=== PATIENT | male | born 1965 | race Two or more races ===

== ENCOUNTER 2024-10-05 15:34 | Outpatient (REF) | payer OTHER, SELFPAY ==
--- NOTE | ~2024-10-05 | XR_ITS ---
EXAMINATION: XR CERVICAL SPINE CLINICAL INFORMATION: M47.812 - Spondylosis without myelopathy or radiculopathy, cervical region COMPARISON: None available. TECHNIQUE: 5 views of the cervical spine were obtained. FINDINGS: There is straightening of the cervical lordosis. There is no prevertebral soft tissue swelling. C6-7 demonstrates mild disc space narrowing with endplate osteophytes. There is mild foraminal narrowing on the left. There is mild convex left curvature of the cervical spine. XR/XR cervical spine 5V IMPRESSION: There is straightening of the expected cervical lordosis. This can be idiopathic, but can also be related to degenerative change, muscle spasm, or posterior soft tissue injury. Degenerative disc disease at C6-7 with mild left foraminal narrowing Electronically signed by: Melo Gaffney MD 10/05/2024 04:36 PM EDT
== END 2024-10-05 15:35 | disposition home or self-care (01) ==
LOC: HO.XRAY 15:34
PROVIDERS: PCP Internal Medicine; Visit Provider Anesthesiology
DX: M47.812 Spondylosis without myelopathy or radiculopathy, cervical region (principal); I69.398 Other sequelae of cerebral infarction; G89.4 Chronic pain syndrome; M54.2 Cervicalgia
CPT/HCPCS: 72050; 99202

== ENCOUNTER 2024-10-05 15:34 | Outpatient (AMB) | payer OTHER, SELFPAY ==
[2024-10-05 15:35] VITALS: BP 133/66; PULSE 83; RESP 18; O2SAT 97; BMI 38.1
--- NOTE | 2024-10-05 15:35 | MHC.OFFVIS ---
Vital Signs 10/05/24 15:35 Height 5 ft 6 in Weight 236 lb BMI 38.1 BP 133/66 Blood Pressure Location Lt brachial Position Sitting Respiration 18 Pulse 83 Pulse Source Pulse Oximeter Pulse Oximetry (%) 97 Oxygen Delivery Method Room Air Intake Visit Reasons: Chronic Left Shoulder Pain Electric Meter Tester Required: No Allergies No Known Allergies Allergy (Verified 10/05/24 15:36) HPI Comments Details: Rashawn is very pleasant 59 years old gentleman who presents in my office with complains on pain in the left side of his neck. He reports that this pain started after the stroke in 2020. He reports pain in the lateral and posterior surface of the neck on the left. He denies pain in his shoulder. He reports that because of his pain he has difficulty sleeping at night. He is able to do activities of daily living he is able to take care of himself but he is unable to function normally. He is disabled individual. He tried locate lidocaine patch application but it did not help. He tried application of the called but not hot and it did not help his pain. He is taking gabapentin and muscle relaxants for his pain. He never had images of his cervical spine. He had physical therapy 6-7 months ago he continues home exercise program. After stroke mobility of his left upper extremity improved. He is able to gently squeeze my fingers today on physical exam. He is able to flex his forearm and slightly able to extend it. He is able to shrug his left shoulder. He never had any injections. His past medical history significant for severe hypertension. He has a stroke and he lost kidney function approximately at the same time. He was treated by hemodialysis until 2021 when his son donated him his kidney, he is now under kidney transplant in [facility]. He is also diabetic. He stopped smoking 4 years ago. He does not drink alcohol. He drinks soda and caffeinated beverages and he denies recreational drugs. Review of Systems Const All systems reviewed & are unremarkable except as noted in HPI and below ENT Reports Normal hearing present Neuro Reports Normal hearing present, Denies Abnormal speech present, Denies confusion and Denies Sensory deficit (Neuro) Psych Denies confusion Physical Exam Vital Signs: Last Vital Signs Pulse 83 10/05/24 15:35 Resp 18 10/05/24 15:35 BP 133/66 10/05/24 15:35 Pulse Ox 97 08/21/25 15:35 Oxygen Delivery Method Room Air 10/05/24 15:35 BMI result Body Mass Index 38.1 Const General: no acute distress; No confusion Nutritional Appearance: obese morbidly obese Orientation/consciousness: patient oriented x3 and No confusion Eyes General: appearance normal, both eyes and all related structures Pupils: Equal, round and reactive pupils present EOM: EOMs intact bilaterally Neck Other: Flexing head forward does not affect his pain but flexing it backwards aggravated severely. There is tenderness on palpation in paraspinal region on the left of the cervical spine. Axial compression aggravates patient's pain. He is able to shrug his left shoulder up, he is able to squeeze my hand on the left but very weakly. Almost unable to extend the left forearm but able to flex it gently. The strength is grossly compromised. Neck: No full ROM Chest Chest palpation & inspection: normal inspection of the chest Resp Effort & Inspection: normal respiratory effort, able to speak in complete sentences, normal respiratory pattern, no audible wheezes and no cough Cardio Jugular venous distension: no JVD GI Inspection: Yes normal to inspection Neuro General: patient oriented x3, gait normal and No confusion Cranial nerves: Yes CN's II-XII intact bilaterally, Yes Equal, round and reactive pupils present, Yes Normal hearing present and Yes Ability to bilaterally elevate shoulders present Speech: No Abnormal speech present Gait exam (Neuro): Normal gait present Motor exam (neuro): 5/5 motor strength present throughout Sensory Exam: No Sensory deficit (Neuro) Extrem General: No pedal edema Psych Speech and movement: Normal speech and movement present Affect: normal affect Attitude: cooperative Thought process: Normal thought process present Thought content: Normal thought content present Insight: Good insight present (Psych) Judgement: Good judgement present (Psych) Assessment & Plan Assessment & Plan (1) Spondylosis of cervical spine: Code(s): M47.812 - Spondylosis without myelopathy or radiculopathy, cervical region Category: Medical (2) Chronic pain syndrome: Code(s): G89.4 - Chronic pain syndrome Category: Medical (3) Pain after cerebrovascular accident (CVA): Code(s): I69.398 - Other sequelae of cerebral infarction; R52 - Pain, unspecified Category: Medical Plan My impression today that this patient is suffering from spondylosis of the cervical spine among other things. I will send him for x-ray today for the cervical spine and if it will demonstrate spondylotic changes in 1 week I will schedule appointment with the patient and we will plan medial branch blocks on the left. He has kidney transplant recipient and he is diabetic Orders: Orders XR cervical spine 5V Today M47.812 - Spondylosis without myelopathy or radiculopathy, cervical region Coding Level of Care Code New Pt Level 3 (86823) Diagnoses Spondylosis of cervical spine M47.812 Chronic pain syndrome G89.4 Pain after cerebrovascular accident (CVA) I69.398; R52
--- OUTSIDE RECORDS SUMMARY | 2024-10-05 15:36 | XMS_ITS | Clinical Summary ---
Author Organization [facility] Address [address] [place] [address] Care Team Providers Care Automotive Parts Clerk Name Role Phone Estuardo Faria MD Primary Care Provider Allergies No known active allergies Medications Medication Sig Dispensed Refills Start Date End Date Status ammonium lactate (AMLACTIN) 12 % cream 12 %. 0 09/03/2009 Act doroteo Blood Glucose Monitoring Suppl (Aeluros FREEDOM LITE) w/Device KIT Use daily 0 04/18/2015 Active ergocalciferol (VITAMIN D2) capsule 60158 units TAKE 1 CAPSULE PO EVERY WEEK 1 09/17/2018 Active Lancets (FREESTYLE) lancets Use to test blood sugar twice a day 0 04/18/2015 Active gabapentin (NEURONTIN) 100 MG capsule TK 1 C PO BID 0 09/17/2018 Active gabapentin (NEURONTIN) 100 MG capsule Take 100 mg by mouth. 0 05/10/2018 Active glyBURIDE (DIABETA) 5 MG tablet 0 10/21/2018 Active lisinopril (PRINIVIL,ZESTRIL) tablet 5 mg TAKE 1 TABLET PO DAILY 3 09/17/2018 Active metFORMIN (GLUCOPHAGE) tablet 1000 mg Take 1,000 mg by mouth. 0 05/11/2018 Active Active Problems Problem Noted Date Diagnosed Date Right carpal tunnel syndrome 10/26/2018 Left carpal tunnel syndrome 10/26/2018 Possible epidermal inclusion cyst right hand/right ring finger 10/26/2018 Family History Medical History Relation Name Comments Diabetes Mother Relation Name Status Comments Mother Social History Tobacco Use Types Packs/Day Years Used Date Smoking Tobacco: Never Smokeless Tobacco: Never Alcohol Use Standard Drinks/Week Comments Yes 0 (1 standard drink = 0.6 oz pur e alcohol) Sex and Gender Information Value Date Recorded Sex Assigned at Not on file Gender Identity Not on file Sexual Orientation Not on file Job Start Date Occupation Industry Not on file Not on file Not on file Last Filed Vital Signs Vital Sign Reading Time Taken Comments Blood Pressure - - Pulse - - Temperature - - Respiratory Rate - - Oxygen Saturation - - Inhaled Oxygen Concentration - - Weight 97.5 kg (215 lb) 10/26/2018 10:51 AM EDT Height 167.6 cm (5' 6 ) 10/26/2018 10:51 AM EDT Body Mass Index 34.7 10/26/2018 10:51 AM EDT Plan of Treatment Health Maintenance Due Date Last Done Comments Hepatitis B Vaccines (1 of 3 - 3-dose series) 1965 Hepatitis C Screening 1965 COVID-19 Vaccine (#1) 1965 Depression Screening 1977 BMI Counseling 1983 Preventative Health Evaluation 1983 Colon Cancer Screening (Colonoscopy) 2010 Shingrix-Zoster Vaccine (1 o f 2) 2015 DTap / Tdap / Td (2 - Td or Tdap) 07/03/2017 07/04/2007 Pneumococcal Vaccine (2 of 2 - PCV) 09/17/2019 09/16/2018 Influenza Vaccine (#1) 2024 8, 11/22/2009, 01/18/2008 RSV Ped < 20 months Aged Out No longe r eligible based on patient's age to complete this topic Care Teams Automotive Parts Clerk Relationship Specialty Start Date End Date Estuardo Faria MD PCP - General Internal Medicine 09/19/18
--- OUTSIDE RECORDS SUMMARY | 2024-10-05 15:36 | XMS_ITS ---
Author Name [facility] Organization Unknown Problems Problem Status Onset Date Problem Type Date of Resoluti on Source Complication of transplanted kidney, unspecified complication active EncounterDiagnosisAct CCT Encounters Encounter Type Encounter Reason Primary Diagnosis Location Date Ambulatory Unspecified complication of kidney transplant Unspecified complication of kidney transplant [facility] 11/27/2022 Ambulatory Unspecified complication of kidney transplant [place] [employer] 05/21/2022 Care Team Organization Name Specialty Phone Email Start Date End Da te [place] Bernadine Servin Primary [facility] 12/15/202210/03 [facility] NENA CHACON Primary Care 11/27/2022 [place] Jenna Trevino Primary [facility] 10/22/2022 4 [place] [employer] 05/21/2022 [place] [employer] 04/29/2022 04/29/2022 [place] NENA CHACON Primary Care 04/22/2022 4 [place] NENA CHACON Primary Care 12/23/2021 4 [facility] [employer] NENA CHACON Primary Care
--- OUTSIDE RECORDS SUMMARY | 2024-10-05 15:36 | XMS_ITS | Clinical Summary ---
Author Organization [facility] Address [address] [place] [address] Care Team Providers Care Retail Selling Specialist Name Role Phone Unavailable Primary Care Provider Unavailabl e Source Comments PLEASE NOTE, if this patient is a minor, it may be UNLAWFUL to discuss sensitive information that is contained in these records (such as FAMILY PLANNING, MENTAL HEALTH or SUBSTANCE ABUSE) with the minor patient's parent or other person without the patient's specific authorization.[facility] Allergies No known active allergies Medications No known medications Active Problems Problem Noted Date Diagnosed Date Cerebrovascular accident (CVA) ([facility]) 0 08/11/2023 Diabetes mellitus ([facility]) 12/22/2022 Cerebrovascular accident (CV A) due to occlusion of cerebral artery ([facility]) 09/02/2022 Kidney transplant status ([facility]) 02/18/2022 Hypertension 05/27/2020 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 ([facility]) 04/23/2020 Social History Tobacco Use Types Packs/Day Years Used Date Smoking Tobacco: Never Smokeless Tobacco: Never Tobacco Cessation:Counseling Given: Not Answered Social Connections Answer Date Recorded Connectedness 0 11/01/2023 Financial Resource Strain Answer Date R ecorded Financial Resource Strain 0 2023 Stress Answer Date Recorded Stress 0 08/10/2023 Physical Activity Answer Date Recorded Physical Activity 0 08/10/2023 Food Insecurity Answer Date Recorded Food 0 11/11/2023 Transportation Needs Answer Date Record ed Transportation 0 08/10/2023 Housing Stability Answer Date Recorded Housing 0 08/10/2023 Safety and Environment Answer Date Vish rded Safety 0 08/10/2023 Utilities Answer Date Recorded Utilities 0 08/10/2023 Employment Answer Date Recorded Stress 0 11/01/2023 Sex and Gender Information Value Date Recorded Sex Assigned at Not on file Legal Sex Male 11:14 AM PDT Gender Identity Not on file Sexual Orientation Not on file Last Filed Vital Signs Vital Sign Reading Time Taken Comments Blood Pressure 127/71 08/11/2023 10:10 AM EDT Pulse 82 08/11/2023 10:10 AM EDT Temperature - - Respiratory Rate - - Oxygen Saturation - - Inhaled Oxygen Concentration - - Weight - - Height - - Body Mass Index - - Plan of Treatment Health Maintenance Due Date Last Done Comments Anxiety Screening 1965 Dental Examination 1965 Diabetes Foot Exam 1965 Hepatitis C Screening 1965 Lipid Screening 1965 Tobacco Screening 1965 Retinopathy Screening 1978 HIV Screening 1980 Medicare Annual Wellness Visit 1983 Imm-Hepatitis B (1 of 3 - 19 + 3-dose series) 1984 Imm-Zoster, Recombinant (1 of 2) 1984 CT Colonography 2010 Colonoscopy 2010 Colorectal Cancer Screening 2010 FIT/gFOBT 2010 Fecal DNA 2010 Flexible Sigmoidoscopy 2010 Imm-Pneumococcal 50+ (3 of 3 - PCV) 09/17/2019 09/16/2018, 11/19/2015 Hemoglobin A1c 10/07/2023 07/07/2023, 0503/2023, 05/27/2022, Additional history exists [id number] ( - 2023- season) 2023 10/08/2021, 01/07/2021, 04/26/2020, Additional history exists Alcohol and Drug Screen 02/16/2024 Depression Annual Screen 02/16/2024 Serum Creatinine 05/16/2024 05/17/2023 Urine Albumin Creatinine Rat io Screening 07/06/2024 07/07/2023, 05/17/2023 Imm-Influenza (#1) 2024 10/29/2022, 0 11/10/2017, 11/17/2016, Additional history exists Imm-DTaP/Tdap/Td (5 - Td or Tdap) 09/16/2028 09/16/2018, 08/24/2015, 11/01/2014, Additional history exists Insurance [facility]
--- OUTSIDE RECORDS SUMMARY | 2024-10-05 15:36 | XMS_ITS | Clinical Summary ---
Author Organization [facility] Address [address] [place] [address] Care Team Providers Care Practical Nursing Faculty Name Role Phone Estuardo Faria MD Primary Care Provider Carrie red Social History Tobacco Use Types Packs/Day Years Used Date Smoking Tobacco: Never Assessed Sex and Gender Information Value Date Recorded Sex Assigned at Male 05/14/2022 8:42 AM EDT Legal Sex Male 2:48 PM EDT Gender Identity Male 05/14/2022 8:42 AM EDT Sexual Orientation Heterosexual (straight) 05/14 8:42 AM EDT Plan of Treatment Health Maintenance Due Date Last Done Comments Hepatitis C Virus Screening 1965 HIV Screening 1978 DTaP/Tdap/Td Vaccines (1 - Tdap) 1984 Pneumococcal Vaccines 50+ (1 of 2 - PCV) 1984 Hepatitis B Vaccines (1 of 3 - Risk Dialysis 4-dose series) 1985 Colonoscopy 2010 Zoster (Shingles) Vaccine (1 of 2) 2015 COVID-19 Vaccine (5 - 2023-2 5 season) 2023 10/08/2021, 01/07/2021, 04/26/2020, Additional history exists Influenza Vaccine 09/15/2024 10/29/2022, , 11/17/2016, Additional history exists Insurance MEDICAID OUT OF STATE [facility] MEDICARE PART A & B Care Teams Practical Nursing Faculty Relationship Specialty Start Date End Date Estuardo Faria MD PCP - General 05/04/22
--- OUTSIDE RECORDS SUMMARY | 2024-10-05 15:36 | XMS_ITS | Encounter Summary ---
Author Organization [facility], Address [address] [address] Phone Care Team Providers Care Retail Merchandiser Name Role Phone Bernadine Servin Primary Care Provider [phone] Encounter Details Date Type Department Care Team (Late st Contact Info) Description 11/28/2021 Documentation Only [facility], [address] [phone] Conor Shultz MD [address] [place] [phone] Social History Tobacco Use Types Packs/Day Years Used Date Smoking Tobacco: Former Cigarettes Smokeless Tobacco: Never Alcohol Use Standard Drinks/Week Comments Yes 0 (1 standard drink = 0.6 oz pur e alcohol) Sex and Gender Information Value Date Recorded Sex Assigned at Not on file Legal Sex Male 4:57 PM EST Gender Identity Not on file Sexual Orientation Not on file documented as of this encounter Plan of Treatment Upcoming Encounters Date Type Department Care Team (Late st Contact Info) Description 12/12/2024 11:00 AM EDT Office Visit [facility] [address] [phone] Evaristo Vidales MD [address] [phone] documented as of this encounter Visit Diagnoses Not on filedocumented in this encounter Care Teams Retail Merchandiser Relationship Specialty Start Date End Date Bernadine Servin [address] [place] [address] PCP - General Internal Medicine 02/23/23 documented as of this encounter
== END 2024-10-06 15:38 | disposition home or self-care (01) ==
PROVIDERS: PCP Internal Medicine; Visit Provider Anesthesiology
DX: M47.812 Spondylosis without myelopathy or radiculopathy, cervical region (principal); G89.4 Chronic pain syndrome; I69.398 Other sequelae of cerebral infarction
CPT/HCPCS: 99203

== ENCOUNTER → 2024-10-05 16:09 | Outpatient (BNV) | payer OTHER, SELFPAY | PROVIDERS: PCP Internal Medicine; Visit Provider Radiology Diagnostic Radiology | DX: M50.323 Other cervical disc degeneration at C6-C7 level (principal) | CPT/HCPCS: 72050 ==

== ENCOUNTER 2024-11-02 15:05 | Outpatient (AMB) | payer OTHER, SELFPAY ==
--- NOTE | 2024-11-02 15:15 | A.OFFVIS_ITS ---
Vital Signs 11/02/24 15:16 Weight 236 lb BP 123/61 Blood Pressure Location Lt brachial Position Sitting Respiration 18 Pulse 77 Pulse Source Pulse Oximeter Pulse Oximetry (%) 99 Oxygen Delivery Method Room Air Intake Visit Reasons: X-RAY FOLLOW UP Philosophy Faculty Member Required: No Allergies No Known Allergies Allergy (Verified 11/02/24 15:15) HPI Comments Details: Rashawn is back in my office after we performed x-ray of the cervical spine. There is straightening of cervical lordosis on the x-ray and also degenerative changes around C5-C6. I offered this patient diagnostic C4-C5 C6 medial branch block with intention if the medial branch block we will alleviate his pain in significant extent to treat his pain with sprint PNS. Josephine I will alleviate his pain little bit better while he is waiting for the procedure I will prescribe him small dose of muscle relaxants baclofen 10 mg t.i.d.. Prior: complains on pain in the left side of his neck. He reports that this pain started after the stroke in 2020. He reports pain in the lateral and posterior surface of the neck on the left. He denies pain in his shoulder. He reports that because of his pain he has difficulty sleeping at night. He is able to do activities of daily living he is able to take care of himself but he is unable to function normally. He is disabled individual. He tried locate lidocaine patch application but it did not help. He tried application of the called but not hot and it did not help his pain. He is taking gabapentin and muscle relaxants for his pain. He never had images of his cervical spine. He had physical therapy 6-7 months ago he continues home exercise program. He is able to flex his forearm and slightly able to extend it. He is able to shrug his left shoulder. He never had any injections. His past medical history significant for severe hypertension. He has a stroke and he lost kidney function approximately at the same time. He was treated by hemodialysis until 2021 when his son donated him his kidney, he is now under kidney transplant in [facility]. He is also diabetic. Review of Systems Const All systems reviewed & are unremarkable except as noted in HPI and below ENT Reports Normal hearing present Neuro Reports Normal hearing present, Denies Abnormal speech present, Denies confusion and Denies Sensory deficit (Neuro) Psych Denies confusion Physical Exam Vital Signs: Last Vital Signs Pulse 77 11/02/24 15:16 Resp 18 11/02/24 15:16 BP 123/61 11/02/24 15:16 Pulse Ox 99 11/02/24 15:16 Oxygen Delivery Method Room Air 11/02/24 15:16 Const General: no acute distress; No confusion Nutritional Appearance: obese morbidly obese Orientation/consciousness: patient oriented x3 and No confusion Eyes General: appearance normal, both eyes and all related structures Pupils: Equal, round and reactive pupils present EOM: EOMs intact bilaterally Neck Other: Flexing head forward does not affect his pain but flexing it backwards aggravated severely. There is tenderness on palpation in paraspinal region on the left of the cervical spine. Axial compression aggravates patient's pain. He is able to shrug his left shoulder up, he is able to squeeze my hand on the left but very weakly. Almost unable to extend the left forearm but able to flex it gently. The strength is grossly compromised. Neck: No full ROM Chest Chest palpation & inspection: normal inspection of the chest Resp Effort & Inspection: normal respiratory effort, able to speak in complete sentences, normal respiratory pattern, no audible wheezes and no cough Cardio Jugular venous distension: no JVD GI Inspection: Yes normal to inspection Neuro General: patient oriented x3, gait normal and No confusion Cranial nerves: Yes CN's II-XII intact bilaterally, Yes Equal, round and reactive pupils present, Yes Normal hearing present and Yes Ability to bilaterally elevate shoulders present Speech: No Abnormal speech present Gait exam (Neuro): Normal gait present Motor exam (neuro): 5/5 motor strength present throughout Sensory Exam: No Sensory deficit (Neuro) Extrem General: No pedal edema Psych Speech and movement: Normal speech and movement present Affect: normal affect Attitude: cooperative Thought process: Normal thought process present Thought content: Normal thought content present Insight: Good insight present (Psych) Judgement: Good judgement present (Psych) Assessment & Plan Assessment & Plan (1) Spondylosis of cervical spine: Code(s): M47.812 - Spondylosis without myelopathy or radiculopathy, cervical region Category: Medical (2) Chronic pain syndrome: Code(s): G89.4 - Chronic pain syndrome Category: Medical (3) Pain after cerebrovascular accident (CVA): Code(s): I69.398 - Other sequelae of cerebral infarction; R52 - Pain, unspecified Category: Medical Plan My impression today that this patient is suffering from spondylosis of the cervical spine among other things. X-ray demonstrated degenerative changes at C5-C6 and straightening of spinal lordosis . I will schedule him for left-sided C4-C5- C6 medial branch block diagnostic. If this will result in good pain improvement immediately after the injection I will consider left-sided sprint PNS. I will prescribe him baclofen 10 mg t.i.d. to help his pain meanwhile. He is kidney transplant recipient and he is diabetic Medications: New baclofen 10 mg PO TID 90 tabs 6RF 30 days Coding Level of Care Code Est Pt Level 3 (91914) Diagnoses Spondylosis of cervical spine M47.812 Chronic pain syndrome G89.4 Pain after cerebrovascular accident (CVA) I69.398; R52
[2024-11-02 15:16] VITALS: BP 123/61; PULSE 77; RESP 18; O2SAT 99
--- OUTSIDE RECORDS SUMMARY | 2024-11-02 16:40 | XMS_ITS | Encounter Summary ---
Author Organization [facility] Address 100 [facility] 200 [place] [address] Phone Care Team Providers Care Bread Stacker Name Role Phone Bernadine Servin Primary Care Provider [phone] Encounter Details Date Type Department Care Team (Late st Contact Info) Description 06/07/2020 Orders Only [facility] 100 [facility] 200 [place] [phone] Ha Goldberg MD [address] [place] [phone] Stage 5 chronic kidney disease (HCC); Hypertension; Type 2 diabetes mellitus with diabetic chronic kidney disease (HCC) Social History Tobacco Use Types Packs/Day Years Used Date Smoking Tobacco: Every Day Cigarettes Smokeless Tobacco: Never Alcohol Use Standard [...] Visit [facility] 24[address] [facility] 204 [place] [address] Evaristo Vidales MD 4799 [facility] 204 [place] [address] documented as of this encounter Visit Diagnoses Diagnosis Stage 5 chronic kidney disease (HCC) Hypertension Type 2 diabetes mellitus with diabetic chronic kidney disease (HCC) documented in this encounter Care Teams Bread Stacker Relationship Specialty Start Date End Date Bernadine Servin [address] [place] [address] PCP - General Internal Medicine 02/23/23 documented as of this encounter
--- OUTSIDE RECORDS SUMMARY | 2024-11-02 16:40 | XMS_ITS | Encounter Summary ---
Author Organization [facility] [place] Address 100 [facility] 200 [place] [address] Phone Care Team Providers Care Nursery School Attendant Name Role Phone Bernadine Servin Primary Care Provider Encounter Details Date Type Department Care Team (Late st Contact Info) Description 06/14/2020 Orders Only [facility] 100 [facility] 200 [place] [phone] Ha Goldberg MD [address] [place] [phone] Stage 5 chronic kidney disease (HCC); Hypertension; [...] Visit [facility] 9273 [facility] 204 [place] [address] Evaristo Vidales MD 8206 [facility] 204 [place] [address] documented as of this encounter Visit Diagnoses Diagnosis Stage 5 chronic kidney disease (HCC) Hypertension Type 2 diabetes mellitus with diabetic chronic kidney disease (HCC) documented in this encounter Care Teams Nursery School Attendant Relationship Specialty Start Date End Date Bernadine Servin [address] [place] [address] PCP - General Internal Medicine 02/23/23 documented as of this encounter
--- OUTSIDE RECORDS SUMMARY | 2024-11-02 16:40 | XMS_ITS | Encounter Summary ---
Author Organization [facility] [place] Address 100 [facility] 200 [place] [address] Phone Care Team Providers Care Fruit Harvest Machine Operator Name Role Phone Bernadine Servin Primary Care Provider [phone] Encounter Details Date Type Department Care Team (Late st Contact Info) Description 07/05/2020 Orders Only [facility] 100 [facility] 200 [place] [phone] Ha Goldberg MD [address] [place] [phone] Stage 5 chronic kidney disease (HCC); Hypertension; [...] Visit [facility] [address] [facility] 204 [place] [address] Evaristo Vidales MD [address] [facility] 204 [place] [address] documented as of this encounter Visit Diagnoses Diagnosis Stage 5 chronic kidney disease (HCC) Hypertension Type 2 diabetes mellitus with diabetic chronic kidney disease (HCC) documented in this encounter Care Teams Fruit Harvest Machine Operator Relationship Specialty Start Date End Date Bernadine Servin [address] [place] [address] PCP - General Internal Medicine 02/23/23 documented as of this encounter
--- OUTSIDE RECORDS SUMMARY | 2024-11-02 16:40 | XMS_ITS | Encounter Summary ---
Author Organization [facility] [place] Address 100 [facility] 200 [place] [address] Phone Care Team Providers Care Legal Executive Name Role Phone Bernadine Servin Primary Care Provider Encounter Details Date Type Department Care Team (Late st Contact Info) Description 05/31/2020 Orders Only [facility] 100 [facility] 200 [place] [phone] Ha Goldberg MD [address] [place] [phone] Stage 5 chronic kidney disease (HCC); Hypertension; [...] Visit [facility] 4939 [facility] 204 [place] [address] Evaristo Vidales MD 0920 [facility] 204 [place] [address] documented as of this encounter Visit Diagnoses Diagnosis Stage 5 chronic kidney disease (HCC) Hypertension Type 2 diabetes mellitus with diabetic chronic kidney disease (HCC) documented in this encounter Care Teams Legal Executive Relationship Specialty Start Date End Date Bernadine Servin [address] [place] [address] PCP - General Internal Medicine 02/23/23 documented as of this encounter
--- OUTSIDE RECORDS SUMMARY | 2024-11-02 16:40 | XMS_ITS | Encounter Summary ---
Author Organization [facility] [place] Address 100 [facility] 200 [place] [address] Phone Care Team Providers Care Corporate Paralegal Name Role Phone Bernadine Servin Primary Care Provider [phone] Encounter Details Date Type Department Care Team (Late st Contact Info) Description 08/16/2020 Orders Only [facility] 100 [facility] 200 [place] [phone] Ha Goldberg MD [address] [place] [phone] Stage 5 chronic kidney disease (HCC); Hypertension; [...] Visit [facility] 125[address] [facility] 204 [place] [address] Evaristo Vidales MD 8476 [facility] 204 [place] [address] documented as of this encounter Visit Diagnoses Diagnosis Stage 5 chronic kidney disease (HCC) Hypertension Type 2 diabetes mellitus with diabetic chronic kidney disease (HCC) documented in this encounter Care Teams Corporate Paralegal Relationship Specialty Start Date End Date Bernadine Servin [address] [place] [address] PCP - General Internal Medicine 02/23/23 documented as of this encounter
--- OUTSIDE RECORDS SUMMARY | 2024-11-02 16:40 | XMS_ITS | Encounter Summary ---
Author Organization [facility] [place] Address 100 [facility] 200 [place] [address] Phone Care Team Providers Care Clinical Research Monitor Name Role Phone Bernadine Servin Primary Care Provider Encounter Details Date Type Department Care Team (Late st Contact Info) Description 07/12/2020 Orders Only [facility] 100 [facility] 200 [place] [phone] Ha Goldberg MD [address] [place] [phone] Stage 5 chronic kidney disease (HCC); Hypertension; [...] Visit [facility] 3413 [facility] 204 [place] [address] Evaristo Vidales MD 4480 [facility] 204 [place] [address] documented as of this encounter Visit Diagnoses Diagnosis Stage 5 chronic kidney disease (HCC) Hypertension Type 2 diabetes mellitus with diabetic chronic kidney disease (HCC) documented in this encounter Care Teams Clinical Research Monitor Relationship Specialty Start Date End Date Bernadine Servin [address] [place] [address] PCP - General Internal Medicine 02/23/23 documented as of this encounter
--- OUTSIDE RECORDS SUMMARY | 2024-11-02 16:40 | XMS_ITS | Encounter Summary ---
Author Organization [facility] [place] Address 100 [facility] 200 [place] [address] Phone Care Team Providers Care Soil Scientist Name Role Phone Bernadine Servin Primary Care Provider Encounter Details Date Type Department Care Team (Late st Contact Info) Description 08/23/2020 Orders Only [facility] 100 [facility] 200 [place] [phone] Ha Goldberg MD [address] [place] [phone] Stage 5 chronic kidney disease (HCC); Hypertension; [...] Visit [facility] 9785 [facility] 204 [place] [address] Evaristo Vidales MD 3820 [facility] 204 [place] [address] documented as of this encounter Visit Diagnoses Diagnosis Stage 5 chronic kidney disease (HCC) Hypertension Type 2 diabetes mellitus with diabetic chronic kidney disease (HCC) documented in this encounter Care Teams Soil Scientist Relationship Specialty Start Date End Date Bernadine Servin [address] [place] [address] PCP - General Internal Medicine 02/23/23 documented as of this encounter
--- OUTSIDE RECORDS SUMMARY | 2024-11-02 16:40 | XMS_ITS | Encounter Summary ---
Author Organization [facility], Address [address] [address] Phone Care Team Providers Care Registered Medical Transcriptionist Name Role Phone Bernadine Servin Primary Care Provider [phone] Encounter Details Date Type Department Care Team (Late st Contact Info) Description 11/28/2021 Documentation Only [facility], [address] [facility] [place] [phone] Conor Shultz MD [address] [facility] [place] [phone] Social History Tobacco Use Types Packs/Day Years [...] Visit [facility] [address] [address] Evaristo Vidales MD [address] [address] documented as of this encounter Visit Diagnoses Not on filedocumented in this encounter Care Teams Registered Medical Transcriptionist Relationship Specialty Start Date End Date Bernadine Servin 4 [place] [address] PCP - General Internal Medicine 02/23/23 documented as of this encounter
--- OUTSIDE RECORDS SUMMARY | 2024-11-02 16:40 | XMS_ITS | Encounter Summary ---
Author Organization [facility] [place] Address 100 [facility] 200 [place] [address] Phone Care Team Providers Care Aprn Name Role Phone Bernadine Servin Primary Care Provider [phone] Encounter Details Date Type Department Care Team (Late st Contact Info) Description 10/27/2024 Orders Only [facility] 100 [facility] 200 [place] [address] Zack Ballesteros MD [address] [facility] 204 [place] [address] Kidney transplant status; Other half-way current drug therapy Social History Tobacco Use Types Packs/Day Years [...] Visit [facility] 35[address] [facility] 204 [place] [address] Evaristo Vidales MD [address] [facility] 204 [place] [address] documented as of this encounter Visit Diagnoses Diagnosis Kidney transplant status Other half-way current drug therapy documented in this encounter Care Teams Aprn Relationship Specialty Start Date End Date Zoë Servinmana [address] [place] [address] PCP - General Internal Medicine 02/23/23 documented as of this encounter
--- OUTSIDE RECORDS SUMMARY | 2024-11-02 16:40 | XMS_ITS | Encounter Summary ---
Author Organization [facility] [place] Address 100 [facility] 200 [place] [address] Phone Care Team Providers Care Ramp Attendant Name Role Phone Bernadine Servin Primary Care Provider [phone] Encounter Details Date Type Department Care Team (Late st Contact Info) Description 07/26/2020 Orders Only [facility] 100 [facility] 200 [place] [phone] Ha Goldberg MD [address] [place] [phone] Stage 5 chronic kidney disease (HCC); Hypertension; [...] Visit [facility] [address] [facility] 204 [place] [address] Evaristo Vidales MD 0743 [facility] 204 [place] [address] documented as of this encounter Visit Diagnoses Diagnosis Stage 5 chronic kidney disease (HCC) Hypertension Type 2 diabetes mellitus with diabetic chronic kidney disease (HCC) documented in this encounter Care Teams Ramp Attendant Relationship Specialty Start Date End Date Bernadine Servin [address] [place] [address] PCP - General Internal Medicine 02/23/23 documented as of this encounter
--- OUTSIDE RECORDS SUMMARY | 2024-11-02 16:40 | XMS_ITS | Encounter Summary ---
Author Organization [facility] [place] Address 100 [facility] 200 [place] [address] Phone Care Team Providers Care Affiliate Marketing Specialist Name Role Phone Bernadine Servin Primary Care Provider [phone] Encounter Details Date Type Department Care Team (Late st Contact Info) Description 06/28/2020 Orders Only [facility] 100 [facility] 200 [place] [phone] Ha Goldberg MD [address] [place] [phone] Stage 5 chronic kidney disease (HCC); Hypertension; [...] and [facility] of the [facility] 2[address] [facility] 204 [place] [address] Evaristo Vidales MD 0579 [facility] 204 [place] [address] documented as of this encounter Visit Diagnoses Diagnosis Stage 5 chronic kidney disease (HCC) Hypertension Type 2 diabetes mellitus with diabetic chronic kidney disease (HCC) documented in this encounter Care Teams Affiliate Marketing Specialist Relationship Specialty Start Date End Date Bernadine Servin [address] [place] [address] PCP - General Internal Medicine 02/23/23 documented as of this encounter
--- OUTSIDE RECORDS SUMMARY | 2024-11-02 16:40 | XMS_ITS | Encounter Summary ---
Author Organization [facility] [place] Address [address] [facility] 200 [place] [address] Phone Care Team Providers Care Extruding Machine Operator Name Role Phone Bernadine Servin Primary Care Provider [phone] Encounter Details Date Type Department Care Team (Late st Contact Info) Description 06/21/2020 Orders Only [facility] [address] [facility] 200 [place] [phone] Ha Goldberg MD [address] [place] [phone] Stage 5 chronic kidney disease (HCC); Hypertension; [...] Visit [facility] 5300 [facility] 204 [place] [address] Evaristo Vidales MD 0520 [facility] 204 [place] [address] documented as of this encounter Visit Diagnoses Diagnosis Stage 5 chronic kidney disease (HCC) Hypertension Type 2 diabetes mellitus with diabetic chronic kidney disease (HCC) documented in this encounter Care Teams Extruding Machine Operator Relationship Specialty Start Date End Date Bernadine Servin [address] [place] [address] PCP - General Internal Medicine 02/23/23 documented as of this encounter
--- OUTSIDE RECORDS SUMMARY | 2024-11-02 16:40 | XMS_ITS | Encounter Summary ---
Author Organization [facility] [place] Address 100 [facility] 200 [place] [address] Phone Care Team Providers Care Precinct Police Lieutenant Name Role Phone Bernadine Servin Primary Care Provider Encounter Details Date Type Department Care Team (Late st Contact Info) Description 08/30/2020 Orders Only [facility] 100 [facility] 200 [place] [phone] Ha Goldberg MD [address] [place] [phone] Stage 5 chronic kidney disease (HCC); Hypertension; [...] Visit [facility] 9900 [facility] 204 [place] [address] Evaristo Vidales MD 8787 [facility] 204 [place] [address] documented as of this encounter Visit Diagnoses Diagnosis Stage 5 chronic kidney disease (HCC) Hypertension Type 2 diabetes mellitus with diabetic chronic kidney disease (HCC) documented in this encounter Care Teams Precinct Police Lieutenant Relationship Specialty Start Date End Date Bernadine Servin [address] [place] [address] PCP - General Internal Medicine 02/23/23 documented as of this encounter
--- OUTSIDE RECORDS SUMMARY | 2024-11-02 16:40 | XMS_ITS | Encounter Summary ---
Author Organization [facility] [place] Address 100 [facility] 200 [place] [address] Phone Care Team Providers Care Bulk Station Agent Name Role Phone Bernadine Servin Primary Care Provider [phone] Encounter Details Date Type Department Care Team (Late st Contact Info) Description 09/06/2020 Orders Only [facility] 100 [facility] 200 [place] [phone] Ha Goldberg MD [address] [place] [phone] Stage 5 chronic kidney disease (HCC); Hypertension; [...] Visit [facility] 6040 [facility] 204 [place] [address] Evaristo Vidales MD 2555 [facility] 204 [place] [address] documented as of this encounter Visit Diagnoses Diagnosis Stage 5 chronic kidney disease (HCC) Hypertension Type 2 diabetes mellitus with diabetic chronic kidney disease (HCC) documented in this encounter Care Teams Bulk Station Agent Relationship Specialty Start Date End Date Bernadine Servin [address] [place] [address] PCP - General Internal Medicine 02/23/23 documented as of this encounter
--- OUTSIDE RECORDS SUMMARY | 2024-11-02 16:40 | XMS_ITS | Encounter Summary ---
Author Organization [facility] Address 3550 [facility] 204 [place] [address] Phone Care Team Providers Care Overlocker Name Role Phone MalathiZoëBernadine Primary Care Provider [phone] Encounter Details Date Type Department Care Team ([facility] st Contact Info) Description 10/11/2024 Office Communication [facility] [address] [facility] 204 [place] [phone] Evaristo Vidales MD [address] [facility] 204 [place] [phone] Social History Tobacco Use Types Packs/Day Years [...] on file documented as of this encounter Miscellaneous Notes * Telephone Encounter - Cherie Pradhan - 10/13/2024 11:27 AM EDT Sorry for the confusion. It's the same patient. We had to different office communications open for the same pt. Issue resolved . New Rx faxed to [facility] for a new dose of 2.5 mg daily. Decreased from 3mg to 2.5 mg daily. Will call pt to let him know. * Telephone Encounter - Evaristo Vidales MD - 10/11/2024 8:13 AM EDT D His level was 10. 1--high so I called him and told him to decr envarsus 3.0--> 2.5 He says he has the 0.75 mg tabs Pls confirm with him and also change our med list to and lmk if I need to order the 0.75 tbas thx documented in this encounter Plan of Treatment Upcoming Encounters Date Type Department Care Team (Late st Contact Info) Description 12/12/2024 11:00 AM EDT Office Visit [facility] [address] [address] Evaristo Vidales MD [facility] [address] [address] documented as of this encounter Visit Diagnoses Not on filedocumented in this encounter Care Teams Overlocker Relationship Specialty Start Date End Date Bernadine Servin [address] [place] [address] PCP - General Internal Medicine 02/23/23 documented as of this encounter
--- OUTSIDE RECORDS SUMMARY | 2024-11-02 16:41 | XMS_ITS | Clinical Summary ---
Author Organization [facility] [address] [place] [address] [place] [address] Phone Care Team Providers Care Director Women Name Role Phone PepeBernadine chan Primary Care Provider [phone] Allergies No known active allergies Medications tacrolimus (Envarsus XR) 1 mg extended release tablet Take by mouth. Take 3mg by mouth 07/13/19 24 Active blood-glucose meter,continuous (Dexcom G7 [employer]) misc 1 Device by Does not apply route See Admin Instructions. Use daily with dexcom g 7 sensors 07/06/19 24 Active blood-glucose sensor (DEXCOM G7 SENSOR MISC) 1 Device by Does not apply route See Admin Instructions. Change sensor every 10 days 07/06/19 24 Active glucagon (Gvoke HypoPen 2-Pack) 1 mg/0.2 mL auto-injector Inject 1 Dose into the skin as needed for Other (low blood sugar). 07/06/19 24 Active acetaminophen (TYLENOL) 325 mg capsule Take 325 mg by mouth 2 times daily as needed for Other (joint pain). 06/16/19 24 Active calcium carbonate/simethic one (MAALOX ADVANCED ORAL) Take by mouth as needed for Constipation. Active FREESTYLE LANCETS MISC Use to test blood sugar twice a day 01/17/20 21 Active dextrose (glucose) 2 gram tablet,chewable Chew 4 tablets if needed (Low blood sugar). 180 tablet 3 02/22/19 25 Active insulin lispro (HumaLOG KwikPen Insulin) 100 unit/mL injection pen Inject 13-21 Units under the skin 3 (three) times a day before meals. INJECT SUBCUTANEOUSLY 3 TIMES A DAY PER SLIDING SCALE: 100-150=13 U, 151-200=15U, 201- 250=16U, 251-300=17U, 301-350=18U, 351-400=19U, 401-450=21U 45 mL 3 02/22/19 25 Active dapagliflozin propanediol (FARXIGA) 10 mg tablet Take 1 tab daily 90 tablet 3 02/22/19 25 Active insulin glargine (Lantus Solostar U-100 Insulin) 100 unit/mL (3 mL) injection pen Inject 68 Units into the skin 2 Times Daily. 45 mL 02/22/19 25 Active atorvastatin (LIPITOR) 80 mg tabletIndications: Hyperlipidemia, unspecified hyperlipidemia type Take 1 tablet (80 mg total) by mouth at bedtime. 90 each 04/04/19 25 Active aspirin 81 mg EC tablet TAKE 1 TABLET BY MOUTH DAILY 90 tablet 1 08/16/19 25 Active blood-glucose sensor (NativeADcom G7 Sensor) device CHANGE EVERY 10 DAYS 3 each 08/31/19 25 Active tiZANidine (ZANAFLEX) 2 mg capsule Take 1 capsule (2 mg total) by mouth 3 (three) times a day for 14 days. 42 capsule 09/08/19 25 Active lidocaine (LIDODERM) 5 % patchIndications:N kyle pain,DM (diabetes mellitus), type 2 with neurological complications ([facility] V24, [facility] V28) Apply 1 patch topically 1 (one) time each day. Apply to painful area 12 hours per day, remove for 12 hours. 30 each 09/08/19 25 026 Active blood-glucose meter kit Use daily or as directed for monitoring of diabetes. 1 each 09/08/19 25 026 Active glucose blood test stripIndications:T ype 2 diabetes mellitus with other ophthalmic complication, with long-term current use of insulin ([facility] V24, [facility] V28) Use as instructed to test blood sugar 4 times daily as needed -freestyle brand or which ever is covered by insurance 200 each 09/09/19 25 026 Active gabapentin (NEURONTIN) 100 mg capsule Take 1 capsule (100 mg total) by mouth 3 (three) times a day. 90 each 5 09/12/19 25 026 Active pen needle, diabetic 32 gauge x 32 needle USE DIRECTED TO INJECT INSULIN 3 TIMES DAILY 300 each 1 09/12/19 25 Active dulaglutide (TRULICITY) 0.75 mg/0.5 mL pen injector injection Inject 0.5 mL (0.75 mg total) under the skin every 7 (seven) days. 2 mL 5 10/06/19 25 Active Active Problems Problem Noted Date Diagnosed Date Right hand pain 11/07/2023 Subacute osteomyelitis of ri ght hand ([facility] V24, [facility] V28) 11/30/2022 Retained suture 09/29/2022 Hyperlipidemia 01/01/2022 Type 2 diabetes mellitus wit h obesity ([facility] [place], [facility] V28) 10/15/2021 ESRD (end stage renal disease) ([facility] [place], [facility] V28) 07/03/2021 Overview (01/04/2024): Transplant recipient 11/06 Tachycardia 07/03/2021 Tobacco dependence 07/03/2021 Hemiparesis of left nondomin ant 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 ([facility] [place], [facility] V28) 09/16/2020 Type 2 diabetes mellitus wit h cataract ([facility], [facility] V28) 11/25/2018 Carpal tunnel syndrome, bilateral 10/26/2018 Epidermal inclusion cyst 10/26/2018 Obesity (BMI 30.0-34.9) 08/30/2017 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 ([facility], [facility] V28) 12/23/2015 Borderline glaucoma with ocular hypertension 08/2015 Cataract, bilateral 12/23/2015 Type 2 diabetes with ophthal ani manifestation ([facility] V24, [facility] V28) 01/24/2014 Fatty liver 01/19/2014 Liver lesion 01/19/2014 Type 2 diabetes mellitus wit h renal manifestations ([facility] V24, [facility] V28) 10/20/2013 Microalbuminuria 10/20/2013 DM (diabetes mellitus), type 2 with neurological complications ([facility] V24, [facility] V28) 08/22/2013 Alcohol abuse 08/22/2013 Overview (01/04/2024): 5-6 beers a night during the week; more with hard alcohol on weekends Primary hypertension 04/16/2008 Encounters Date Type Department Care Team Description 10/02/2024 10:15 AM EDT Office Visit [facility] - [facility] [address] [place], [place] [address] [phone] Shima Wick, ENMANUEL Type 2 diabetes mellitus with obesity (CMS/HCC V24, CMS/HCC V28) (Primary Dx); Hemiparesis of left nondominant side as late effect of cerebral infarction (CMS/HCC V24, CMS/HCC V28); Neck pain; Chronic left shoulder pain; Renal transplant recipient 09/11/2024 Telephone Internal Medicine - [facility] [address] [place], [place] [address] [phone] Bernadine Servin DO 09/08/2024 Telephone Internal Medicine - [facility] [address] [place] [address] Stephanie Jackman [place] 09/07/2024 10:57 AM EDT - 09/07/2024 11:59 PM EDT [facility] [address] [place], [place] [address] [place] [phone] Neck pain Discharge Disposition: Home or Self Care 09/07/2024 10:45 AM EDT Office Visit Internal Medicine - [facility] [address] [place], [place] [address]and[place], [place] [phone] Gaurang Marmolejo PA DM (diabetes mellitus), type 2 with neurological complications ([facility]/HCC V24, CMS/HCC V28) (Primary Dx); Neck pain; Hemiparesis of left nondominant side as late effect of cerebral infarction ([facility] V24, [facility] V28); Hyperlipidemia, unspecified hyperlipidemia type; Elevated alkaline phosphatase level 09/07/2024 [facility] [address] [place], [place] [address]and[place], [place] [phone] Gaurang Marmolejo PA 09/06/2024 Telephone Endocrinology - [place] [address] [place], [place] [phone] Claudia Ward PA 09/06/2024 Telephone [facility] [address] [phone] Claudia Ward PA 08/24/2024 6:22 PM EDT - 08/24/2024 11:59 PM EDT Hospital Encounter X[facility] - [facility] [phone] Chronic left shoulder pain Discharge Disposition: Home or Self Care 08/24/2024 6:00 PM EDT Office Visit Walk-In Clinic - [address] [phone] Mik Patrick PA Chronic left shoulder pain (Primary Dx); Hemiparesis of left nondominant side as late effect of cerebral infarction (CMS/HCC V24, CMS/HCC V28) 08/24/2024 Telephone Internal Medicine - [address] [phone] Bernadine Servin DO 08/23/2024 Telephone Endocrinology - [place] [address] [place], [place] [phone] Claudia Ward PA from Last 3 Months Immunizations Name Administration Dates Next Due Influenza Quadravalent, MDCK , 0.5ml, preservative free (Flucelvax) 6mo and older 11/10/2017 Influenza trivalent, 0.5mL, preservative free (Fluarix; FluLaval; Fluzone) ages 6mo and older (Afluria) 3 years and older 11/22/2009,01/18/2008 Influenza trivalent, recombi nant, 0.5mL, preservative free (Flublok) 9yo and older 09/25/2024 Influenza, Unspecified 11/14/2023,11/05/2022, Pneumococcal conjugate 20 va lent (Prevnar 20, PCV 20) 2mo and older 04/04/2024 Pneumococcal polysaccharide 23 valent (Pneumovax 23) 2yo and older 09/16/2018,11/19/2015 Td Tetanus diptheria (Tdvax) 7yo and older 09/16 Tdap Tetanus diptheria acell ular pertussis (Boostrix; Adacel) 7yo and older 08/24/2015,11/01/2014,07/04/2007 Surgical History Surgery Date Site/Laterality Comments HAND SURGERY Right PROCEDURE: HISTORICAL HAND SURGERY; COMMENT: tendon nijury COLONOSCOPY 2017 PROCEDURE: HISTORICAL COLONOSCOPY; COMMENT: normal Medical History Medical History Date Comments HTN (hypertension) 04/16/2008 DX:HTN (hyper tension) Borderline glaucoma with ocu lar hypertension 12/23/2015 DX:Borderline glaucoma with ocular hypertension Type 2 diabetes with ophthal ani manifestation ([facility] V24, [facility] V28) 01/24/2014 DX:Type 2 diabetes with opht halmic manifestation (HCC) Cataract, bilateral 12/23/2015 DX:Cataract, bilateral Type 2 diabetes mellitus wit h cataract ([facility] V24, [facility] V28) 11/25/2018 DX:Type 2 diabetes mellitus with cataract (HCC) Alcohol abuse 08/22/2013 DX:Alcohol abuse ; COMMENT: 5-6 beers a night during the week; more with hard alcohol on weekends DM (diabetes mellitus), type 2 with neurological complications ([facility] V24, [facility] V28) 08/22/2013 DX:DM (diabetes mellitus), t ype 2 with neurological complications (HCC) Type 2 diabetes mellitus wit h renal manifestations ([facility] V24, [facility] V28) 10/20/2013 DX:Type 2 diabetes mellitus with renal manifestations (HCC) Epidermal inclusion cyst 10/26/2018 DX:Epid ermal inclusion cyst Fatty liver 01/19/2014 DX:Fatty liver Liver lesion 01/19/2014 DX:Liver lesion Microalbuminuria 10/20/2013 DX:Microalbumin uria 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 ([facility] V24, [facility] V28) 12/23/2015 DX: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 (HCC) Kidney transplant recipient 06/10/2022 DX:K idney transplant recipient DM (diabetes mellitus), type 2 with renal complications ([facility] V24, [facility] V28) 06/10/2022 DX:DM (diabetes mellitus), t ype 2 with renal complications (HCC) Pacemaker 06/10/2022 DX:Pacemaker Bacteremia due to Gram-negat doroteo bacteria 07/03/2021 DX:Bacteremia due to Gram-ne gative bacteria Family History Medical History Relation Name Comments Diabetes Father from D M complications Diabetes Mother Relation Name Status Comments Father Mother Alive Social History Tobacco Use Types Packs/Day Years Used Date Smoking Tobacco: Former Cigarettes 0.5 10.3 0 1990 - 06/15/2000 Smokeless Tobacco: Never Tobacco Cessation:Counseling Given: Not Answered Alcohol Use Standard Drinks/Week Comments Not Currently 0 (1 standard drink = 0.6 oz pur e alcohol) Sex and Gender Information Value Date Recorded Sex Assigned at Not on file Legal Sex Male 5:49 PM EST Gender Identity Not on file Sexual Orientation Not on file Obstetrics History Last Filed Vital Signs Vital Sign Reading Time Taken Comments Blood Pressure 129/68 10/02/2024 10:07 AM EDT Pulse 89 10/02/2024 10:07 AM EDT Temperature 36.6 C (97.9 F) 08/24/2024 5:50 PM EDT Respiratory Rate 16 09/07/2024 10:40 AM EDT Oxygen Saturation 97% 04/25/2024 1:56 PM EDT Inhaled Oxygen Concentration - - Weight 103 kg (226 lb 12.8 oz) 10/02/2024 10:07 AM EDT Height 167.6 cm (5' 6 ) 10/02/2024 10:07 AM EDT Body Mass Index 36.61 10/02/2024 10:07 AM EDT Plan of Treatment Upcoming Encounters Date Type Department Care Team (Late st Contact Info) Description 01/08/2025 10:00 AM EST Office Visit Internal Medicine - [facility] [address], [place] [phone] Gaurang Marmolejo PA [address] [place] [address] Health Maintenance Due Date Last Done Comments Diabetes: Annual Foot Exam 1975 Hepatitis A Vaccines (1 of 2 - Risk 2-dose series) 1984 Hepatitis B Vaccines (1 of 3 - 19+ 3-dose series) 1984 HIV Screening 01/24/2022 Medicare Annual Wellness Visit 01/24/2022 Social Influencers of Health Screening 01/24/2022 Depression Screening 02/16/2024 COVID-19 Vaccine ( season) 2024 02/11/2023, 10/08/2021, 01/07/2021, Additional history exists Diabetes: Blood Sugar Control Test (HGBA1C) 03/10/2025 09/07/2024, 02/11/2024, 10/05/2023, Additional history exists Diabetes: Annual Urine Albumin-Creatinine Ratio (uACR) 09/11/2025 09/11/2024, 09/07/2024, 03/21/2024, Additional history exists Diabetes: Annual GFR (Glomerular Filtration Rate) 09/11/2025 09/11/2024, 09/07/2024, 10/05/2023 Hypertension/CHF/CAD Annual BMP Blood Test 09/11/2025 09/11/2024, 09/07/2024, 10/05/2023 Diabetes: Annual Retina Eye Exam 10/02/2025 10/02/2024, 10/08/2023 Colorectal Cancer Screening: Colonoscopy 05/22/2026 05/22/2016 DTaP,Tdap,and Td Vaccines (5 - Td or Tdap) 09/16/2028 09/16/2018, 08/24/2015, 11/01/2014, Additional history exists Cholesterol Screening (Lipid Panel) 09/11/2029 09/11/2024, 09/07/2024, 12/01/2023, Additional history exists RSV Immunization Adult Patients (1 - 1-dose 75+ series) 2040 Hepatitis C Screening Completed 11/26/2018 Zoster Vaccines Completed 01/01/2023, 09/08/2022 Pneumococcal Vaccine: 50+ Years Completed 04/04/2024, 09/16/2018, 11/19/2015 Influenza Vaccine Completed 09/25/2024, , 10/08/2023, Additional history exists HIB Vaccines Aged Out No longer eligi ble based on patient's age to complete this topic HPV Vaccines Aged Out No longer eligi ble based on patient's age to complete this topic IPV Vaccines Aged Out No longer eligi ble based on patient's age to complete this topic MMR Vaccines Aged Out No longer eligi ble based on patient's age to complete this topic Meningococcal ACWY Vaccine Aged Out N o longer eligible based on patient's age to complete this topic Meningococcal B Vaccine Aged Out No l onger eligible based on patient's age to complete this topic RSV Immunization Patients Under 20 months Aged Out No longer eligible based on patient's age to complete this topic Varicella Vaccines Aged Out No longer eligible based on patient's age to complete this topic Goals Goal Patient Goal Type Associated Problems Recent Progress Patient-Stated? Author OT General On track(2024 12:48 PM EST) Ritu Andrade OT Note: Short Term Goals Indep initial HEP 01/26 MET and ongoing Resting pain Lupper quadrant not exceed 4/10 01/26 MET Partic in estim to promote digit ext in order to actively release ADL items from L hand (ie toothbrush) 01/26 MET AND ONGOING to promote further ext in all digits (still deficit in L MF/RF/LF) 03/09/24 MET [employer] Goals: Indep final HEP including AE/DME needs assessment and recommendations 03/09/24 MET Maximize L sldr AAROM to at least 45 ER for ease of reaching for ADL objects/ donning jacket: 03/09/24: Not met (difficult isolate but achieves approx 35) Procedures Procedure Name Priority Date/Time Associated Diagnosis Comments GAMMA GLUTAMYL TRANSFERASE Routine 09/11/2024 8:57 AM EDT Elevated alkaline phosphatase level ALKALINE PHOSPHATASE Routine 09/11/2024 8:57 AM EDT Elevated alkaline phosphatase level VITAMIN D 25 HYDROXY Routine 09/11/2024 8:57 AM EDT Elevated alkaline phosphatase level COMPREHENSIVE METABOLIC PANEL Routine 09/07/2024 2:37 PM EDT DM (diabetes mellitus), type 2 with neurological complications (CMS/HCC V24, CMS/HCC V28) LIPID PANEL WITH REFLEX TO DIRECT LDL Routine 09/07/2024 2:37 PM EDT DM (diabetes mellitus), type 2 with neurological complications ([facility]/HCC V24, [facility] V28) MICROALBUMIN CREATININE URINE RATIO Routine 09/07/2024 11:46 AM EDT DM (diabetes mellitus), type 2 with neurological complications (CMS/HCC V24, [facility] V28) HEMOGLOBIN A1C Routine 09/07/2024 11:45 AM EDT DM (diabetes mellitus), type 2 with neurological complications (CMS/HCC V24, CMS/HCC V28) XR CERVICAL SPINE 4-5 VIEWS Routine 09/07/2024 11:05 AM EDT Neck pain XR SHOULDER 2+ VIEWS LEFT STAT 08/24/2024 6:35 PM EDT Chronic left shoulder pain DIABETES EYE EXAM Routine 10/08/2023 HEPATITIS C SCREENING Routine 11/26/2018 COLONOSCOPY Routine 05/22/2016 from Last 3 Months or Most Recently Relevant to Health Maintenance Results * Vitamin D 25 hydroxy (09/11/2024 8:57 AM EDT) Vit D, 25-Hydroxy 36.9 30.0 - 80.0 ng/mL LAB CHEMISTRY METHOD 09/11/2024 3:58 PM EDT [facility] Blood Venous blood specimen / Unknown Venipuncture / Unknown 09/11/2024 8:57 AM EDT 09/11/2024 8:57 AM EDT us Gaurang KEARNS LAB BLOOD ORDERABLES Fi nal Result [facility] [address] [place] [address], * (ABNORMAL) Alkaline phosphatase (09/11/2024 8:57 AM EDT) [facility] Alkaline Phosphatase 129(H) 42 - 121 unit/L LAB CHEMISTRY METHOD 09/11/2024 1:10 PM EDT [facility] Blood Venous blood specimen / Unknown Venipuncture / Unknown 09/11/2024 8:57 AM EDT 09/11/2024 8:57 AM EDT Gaurang KEARNS LAB BLOOD ORDERABLES Fi nal Result Performing Organization Address City/[facility]/ZIP Co de Phone Number [facility] [address] [place] [address], [place] [phone] * GGT (09/11/2024 8:57 AM EDT) [facility] GGT 49 7 - 64 unit/L LAB CHEMISTRY METHOD 09/11/2024 12:53 PM EDT [facility] Blood Venous blood specimen / Unknown Venipuncture / Unknown 09/11/2024 8:57 AM EDT 09/11/2024 8:57 AM EDT Gaurang KEARNS LAB BLOOD ORDERABLES Fi nal Result Performing Organization Address [facility]/ZIP Co de Phone Number [facility] [address] [place] [address], [place] [phone] * Lipid panel with reflex to direct LDL (09/07/2024 2:37 PM EDT) [facility] Cholesterol 83 0 - 200 mg/dL LAB CHEMISTRY METHOD 09/07/2024 7:55 PM EDT [facility] Triglycerides 95 0 - 150 mg/dL LAB CHEMISTRY METHOD 09/07/2024 7:55 PM EDT [facility] HDL 43 >=40 mg/dL LAB CHEMISTRY METHOD 09/07/2024 7:55 PM EDT [facility] LDL Calculated 21 0 - 100 mg/dL LAB CHEMISTRY METHOD 09/07/2024 7:55 PM EDT [facility] VLDL Cholesterol Mark 19 mg/dL LAB CHEMISTRY METHOD 09/07/2024 7:55 PM EDT [facility] Non HDL Chol. (LDL+VLDL) 40 <145 mg/dL LAB CHEMISTRY METHOD 09/07/2024 7:55 PM EDT [facility] Chol/HDL Ratio 1.9 0.0 - 4.4 LAB CHEMISTRY METHOD 09/07/2024 7:55 PM EDT [facility] Blood Venous blood specimen / Unknown Venipuncture / Unknown 09/07/2024 2:37 PM EDT 09/07/2024 2:37 PM EDT us Gaurang KEARNS LAB BLOOD ORDERABLES Fi nal Result [facility] [address] [place] [address], [place] [phone] * (ABNORMAL) Comprehensive metabolic panel (09/07/2024 2:37 PM EDT) Sodium 138 133 - 145 mmol/L LAB CHEMISTRY METHOD 09/07/2024 7:55 PM [facility] Potassium 4.2 3.5 - 5.5 mmol/L LAB CHEMISTRY METHOD 09/07/2024 7:55 PM [facility] Chloride 107 96 - 110 mmol/L LAB CHEMISTRY METHOD 09/07/2024 7:55 PM [facility] CO2 26 21 - 32 mmol/L LAB CHEMISTRY METHOD 09/07/2024 7:55 PM [facility] Anion Gap 5 3 - 11 LAB CHEMISTRY METHOD 09/07/2024 7:55 PM [facility] Glucose 110(H) 70 - 100 mg/dL LAB CHEMISTRY METHOD 09/07/2024 7:55 PM [facility] BUN 16 5 - 25 mg/dL LAB CHEMISTRY METHOD 09/07/2024 7:55 PM [facility] Creatinine 1.22 0.70 - 1.30 mg/dL LAB CHEMISTRY METHOD 09/07/2024 7:55 PM [facility] eGFR 68 >=60 mL/min/1. 73m2 LAB CHEMISTRY METHOD 09/07/2024 7:55 PM [facility] Comment:Calculation based on the Chronic Kidney Disease Epidemiology Collaboration (CKD-EPI) equation refit without adjustment for race. BUN/Creatinine Ratio 13.1 LAB CHEMISTRY METHOD 09/07/2024 7:55 PM [facility] Calcium 9.4 8.5 - 10.5 mg/dL LAB CHEMISTRY METHOD 09/07/2024 7:55 PM [facility] AST (SGOT) 24 10 - 42 unit/L LAB CHEMISTRY METHOD 09/07/2024 7:55 PM [facility] ALT (SGPT) 50 10 - 60 unit/L LAB CHEMISTRY METHOD 09/07/2024 7:55 PM [facility] Alkaline Phosphatase 135(H) 42 - 121 unit/L LAB CHEMISTRY METHOD 09/07/2024 7:55 PM [facility] Total Protein 7.5 6.0 - 8.0 g/dL LAB CHEMISTRY METHOD 09/07/2024 7:55 PM [facility] Albumin 4.0 3.2 - 5.0 g/dL LAB CHEMISTRY METHOD 09/07/2024 7:55 PM [facility] Total Bilirubin 1.4 0.0 - 1.4 mg/dL LAB CHEMISTRY METHOD 09/07/2024 7:55 PM [facility] Blood Venous blood specimen / Unknown Venipuncture / Unknown 09/07/2024 2:37 PM EDT 09/07/2024 2:37 PM EDT Gaurang KEARNS LAB BLOOD ORDERABLES Fi nal Result [facility] [address] [place] [address], [place] [phone] * (ABNORMAL) Microalbumin creatinine urine ratio (09/07/2024 11:46 AM EDT) Creatinine, Urine 96.0 mg/dL LAB CHEMISTRY METHOD 09/07/2024 5:52 PM EDT [facility] Microalb, Ur 30.4(H) 0.0 - 29.0 mg/L LAB CHEMISTRY METHOD 09/07/2024 5:52 PM EDT [facility] Microalb/Crea t Ratio 32(H) <30 mg/g creat LAB CHEMISTRY METHOD 09/07/2024 5:52 PM EDT [facility] Urine Urine specimen obtained by clean catch procedure / Unknown 09/07/2024 11:46 AM EDT 09/07/2024 11:46 AM EDT Gaurang KEARNS LAB URINE ORDERABLES Fi nal Result Performing Organization Address [facility]/ZIP Co de Phone Number [facility] [address] [place] [address], [place] [phone] * (ABNORMAL) Hemoglobin A1c (09/07/2024 11:45 AM EDT) Hemoglobin A1C 7.6(H) <6.5 % LAB CHEMISTRY METHOD 09/07/2024 10:10 PM EDT [facility] Mean Bld Glu Estim. 171 mg/dL LAB CHEMISTRY METHOD 09/07/2024 10:10 PM EDT [facility] Blood Venous blood specimen / Unknown Venipuncture / Unknown 09/07/2024 11:45 AM EDT 09/07/2024 11:46 AM EDT Gaurang KEARNS LAB BLOOD ORDERABLES Fi nal Result [facility] ([facility]) [facility] [address] [place] [address], * XR Cervical Spine 4-5 Views (09/07/2024 11:05 AM EDT) Anatomical Region Laterality Modality Spine, C-spine Radiographic Aby ging 09/07/2024 5:25 PM EDT Impressions 09/07/2024 5:26 PM EDT Degenerative changes as described. -------- FINAL REPORT -------- Dictated By: Mary Conroy Dictated Date: 09/07/2024 17:25 ET Assigned Physician: Mary Conroy Reviewed and Electronically Signed By: Mary Conroy Signed Date: 09/07/2024 17:26 ET Workstation ID: [id number] Transcribed By: Self Edit Transcribed Date: 09/07/2024 17:25 ET Narrative 09/07/2024 5:26 PM EDT CERVICAL SPINE, 4 VIEWS HISTORY: Cervical radiculopathy. FINDINGS: There is normal alignment of the cervical spine. No fracture or dislocation is seen. The paravertebral soft tissues are unremarkable. There is disc space narrowing and endplate spurring at C6-7. There are faint soft tissue calcifications in the right side of the neck consistent with carotid artery calcifications. Procedure Note Mary Conroy MD - 09/07/2024 CERVICAL SPINE, 4 VIEWS HISTORY: Cervical radiculopathy. FINDINGS: There is normal alignment of the cervical spine. No fracture ordislocation is seen. The paravertebral soft tissues are unremarkable. There is disc space narrowing and endplate spurring at C6-7. There are faint soft tissue calcifications in the right side of the neckconsistent with carotid artery calcifications. IMPRESSION: Degenerative changes as described. -------- FINAL REPORT -------- Dictated By: Mary Conroy Dictated Date: 09/07/2024 17:25 ET Assigned Physician: Mary Conroy Reviewed and Electronically Signed By: Mary Conroy Signed Date: 09/07/2024 17:26 ET Workstation ID: [id number] Transcribed By: Self Edit Transcribed Date: 09/07/2024 17:25 ET Gaurang KEARNS IMG XR PROCEDURES Final Result * XR Shoulder 2+ Views Left (08/24/2024 6:35 PM EDT) Anatomical Region Laterality Modality Upper Extremities, Shoulder Left Radi ographic Imaging 08/25/2024 8:24 AM EDT Impressions 08/25/2024 8:52 AM EDT Normal study. -------- FINAL REPORT -------- Dictated By: Mary Conroy Dictated Date: 08/25/2024 08:24 ET Assigned Physician: Mary Conroy Reviewed and Electronically Signed By: Mary Conroy Signed Date: 08/25/2024 08:52 ET Workstation ID: [id number] Transcribed By: Self Edit Transcribed Date: 08/25/2024 08:24 ET Narrative 08/25/2024 8:52 AM EDT LEFT SHOULDER, 4 VIEWS HISTORY: Chronic shoulder pain. Status post CVA. PRIORS: None. FINDINGS: No fracture, malalignment, or foreign body is seen. No soft tissue abnormality is seen. Procedure Note Mary Conroy MD - 08/25/2024 LEFT SHOULDER, 4 VIEWS HISTORY: Chronic shoulder pain. Status post CVA. PRIORS: None. FINDINGS: No fracture, malalignment, or foreign body is seen. No soft tissueabnormality is seen. IMPRESSION: Normal study. -------- FINAL REPORT -------- Dictated By: Mary Conroy Dictated Date: 08/25/2024 08:24 ET Assigned Physician: Mary Conroy Reviewed and Electronically Signed By: Mary Conroy Signed Date: 08/25/2024 08:52 ET Workstation ID: [id number] Transcribed By: Self Edit Transcribed Date: 08/25/2024 08:24 ET Mik KEARNS IMG XR PROCEDURES Final Re sult * Diabetes Eye Exam (10/08/2023) Diabetes: Annual Retina Eye Exam abstracted Historical Provider HEALTH MAINTENANCE Final Result * Hepatitis C Screening (11/26/2018) Hepatitis C Screening abstracted Historical Provider HEALTH MAINTENANCE Final Result * Colonoscopy (05/22/2016) Colonoscopy no interpretation , abstracted Anatomical Region Laterality Modality Other Historical Provider HEALTH MAINTENANCE Final Result from Last 3 Months or Most Recently Relevant to Health Maintenance Insurance [employer] MED[employer] Member Subscriber Plan / Payer (Ef fective 2023-Present) Name:JANINA MONTAGUE Relation to Subscriber:Self Name:Janina Montague Payer ID:[id number] Group ID:[id number] Type:Not on file Address: [facility] [place] [address] Care Teams Director Women Relationship Specialty Start Date End Date Bernadine Servin DO [address] [place] [address] PCP - General 11/09/22
--- OUTSIDE RECORDS SUMMARY | 2024-11-02 16:41 | XMS_ITS | Encounter Summary ---
Author Organization [facility] Address [address] [facility] [address] [place] [address] Phone Care Team Providers Care Supervisor Customer Services Name Role Phone Bernadine Servin Primary Care Provider [phone] Encounter Details Date Type Department Care Team (Late st Contact Info) Description 08/09/2020 Orders Only [facility] [address] [facility] [address] [place] [phone] Ha Goldberg MD [address] [place] [phone] Stage 5 chronic kidney disease (HCC); Hypertension; [...] [facility] [address] [facility] [address] [place] [address] Evaristo Vidales MD [address] [facility] [address] [place] [address] documented as of this encounter Visit Diagnoses Diagnosis Stage 5 chronic kidney disease (HCC) Hypertension Type 2 diabetes mellitus with diabetic chronic kidney disease (HCC) documented in this encounter Care Teams Supervisor Customer Services Relationship Specialty Start Date End Date Bernadine Servin [address] [place] [id number] PCP - General Internal Medicine 02/23/23 documented as of this encounter
--- OUTSIDE RECORDS SUMMARY | 2024-11-02 16:41 | XMS_ITS | Encounter Summary ---
Author Organization [facility] Address [address] [facility] [address] [place] [address] Phone Care Team Providers Care Fitness Assistant Name Role Phone Bernadine Servin Primary Care Provider [phone] Encounter Details Date Type Department Care Team (Late st Contact Info) Description 08/02/2020 Orders Only [facility] [address] [facility] [address] [place] [phone] Ha Goldberg MD [address] [place] [phone] Stage 5 chronic kidney disease (HCC); Hypertension; [...] Visit [facility] [address] [facility] [address] [place] [address] Evaristo Vidales MD [address] [facility] [address] [place] [address] documented as of this encounter Visit Diagnoses Diagnosis Stage 5 chronic kidney disease (HCC) Hypertension Type 2 diabetes mellitus with diabetic chronic kidney disease (HCC) documented in this encounter Care Teams Fitness Assistant Relationship Specialty Start Date End Date Bernadine Servin [address] [place] [phone] PCP - General Internal Medicine 02/23/23 documented as of this encounter
--- OUTSIDE RECORDS SUMMARY | 2024-11-02 16:41 | XMS_ITS | Encounter Summary ---
Author Organization [facility] Address [address] [facility] [address] [place] [address] Phone Care Team Providers Care Ion Implant Machine Operator Name Role Phone Bernadine Servin Primary Care Provider [phone] Encounter Details Date Type Department Care Team (Late st Contact Info) Description 07/19/2020 Orders Only [facility] [address] [facility] [address] [place] [phone] Ha Goldberg MD [address] [place] [phone] Stage 5 chronic kidney disease (HCC); Hypertension; [...] Visit [facility] [address] [facility] [address] [place] [address] Evaristo Vidales MD [address] [facility] [address] [place] [address] documented as of this encounter Visit Diagnoses Diagnosis Stage 5 chronic kidney disease (HCC) Hypertension Type 2 diabetes mellitus with diabetic chronic kidney disease (HCC) documented in this encounter Care Teams Ion Implant Machine Operator Relationship Specialty Start Date End Date Bernadine Servin [address] [place] [phone] PCP - General Internal Medicine 02/23/23 documented as of this encounter
--- OUTSIDE RECORDS SUMMARY | 2024-11-02 16:41 | XMS_ITS | Clinical Summary ---
Author Organization [facility] Address [address] [place] [address] Care Team Providers Care Gluing Machine Offbearer Name Role Phone Estuardo Faria MD Primary Care Provider [phone] Allergies No known active allergies Medications Medication Sig Dispensed Refills Start Date End Date Status ammonium lactate (AMLACTIN) 12 % cream 12 %. 0 09/03/2009 Act doroteo Blood Glucose Monitoring Suppl ([employer] FREEDOM LITE) w/Device KIT Use daily 0 04/18/2015 Active ergocalciferol (VITAMIN D2) capsule 49088 units TAKE 1 CAPSULE PO EVERY WEEK [...] age to complete this topic Care Teams Gluing Machine Offbearer Relationship Specialty Start Date End Date Estuardo Faria MD PCP - General Internal Medicine 09/19/18
--- OUTSIDE RECORDS SUMMARY | 2024-11-02 16:41 | XMS_ITS | Clinical Summary ---
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 ([facility]) 04/23/2020 Social History Tobacco Use Types Packs/Day [...] 09/17/2019 09/16/2018, 11/19/2015 Hemoglobin A1c 10/07/2023 07/07/2023, 06/16, 05/27/2022, Additional history exists Alcohol and Drug Screen 02/16/2024 Depression Annual Screen 02/16/2024 Serum Creatinine 05/16/2024 05/17/2023 Urine Albumin Creatinine Rat io Screening 07/06/2024 07/07/2023, 05/17/2023 [id number] ( season) 2024 10/08/2021, 01/07/2021, 04/26/2020, Additional history exists Imm-Influenza (#1) 2024 10/29/2022, 0 11/10/2017, 11/17/2016, Additional history exists Imm-DTaP/Tdap/Td (5 - Td or Tdap) 09/16/2028 09/16/2018, 08/24/2015, 11/01/2014, Additional history exists Insurance [facility]
--- OUTSIDE RECORDS SUMMARY | 2024-11-02 16:41 | XMS_ITS | Clinical Summary ---
Author Organization [facility] Address [address] [place] [address] Phone Care Team Providers Care Book Sewer Name Role Phone Bernadine Servin Primary Care Provider [phone] Allergies No known active allergies Medications atorvastatin (LIPITOR) 80 MG tablet Take 1 tablet (80 mg total) by mouth 1 (one) time each day 30 tablet 11 02/13/20 21 Active Lantus SoloStar 100 UNIT/ML injection INJECT 30 UNITS UNDER THE SKIN EVERY NIGHT AT BEDTIME. GO UP 5 UNITS EVERY WEEK IF FASTING BLOOD SUGHAR ABOVE 120. MAX DOSE 80 UNITS 07/18/19 22 Active HumaLOG KWIKPEN 100 UNIT/ML solution pen-injector 06/24/19 22 Active FREESTYLE LITE test strip 02/14/20 22 Active polyethylene glycol (GLYCOLAX) 17 GM/SCOOP powder Take 17 g by mouth 11/19/19 22 Active Aspirin Low Dose 81 MG EC tablet Take 81 mg by mouth 1 (one) time each day 02/14/20 22 Active Trulicity 4.5 MG/0.5ML solution pen-injector ADMINISTER 4.5 MG UNDER THE SKIN EVERY 7 DAYS 12/17/19 23 Active Dapagliflozin Propanediol 10 MG tablet Take 10 mg by mouth in the morning. 05/08/19 24 Active Tacrolimus ER (Envarsus XR) 0.75 MG tablet sustained-rele ase 24 hour Take 1.5 mg by mouth 1 (one) time each day Takes a total of 2.5 mg daily One of the 1 mg and two of the 0.75 mg tabs every morining to make for a total of 2.5 mg every morning 180 tablet 1 10/14/19 25 025 Active Tacrolimus ER (Envarsus XR) 1 MG tablet sustained-rele ase 24 hourIndication s:History of renal transplant Take 1 mg by mouth 1 (one) time each day Take 1 mg tab along with (2) 0.75 mg tabs for a total dose of 2.5 mg daily. 90 tablet 3 10/18/19 25 Active Tacrolimus ER 1 MG tablet sustained-rele ase 24 hourIndication s:History of renal transplant Take 5 mg by mouth 1 (one) time each day 450 tablet 3 11/08/19 24 025 Discontinued Envarsus XR 1 MG tablet sustained-rele ase 24 hourIndication s:History of renal transplant TAKE 5 TABLETS BY MOUTH ONCE DAILY 450 tablet 10 10/08/19 25 025 Discontinued(Re order (does not appear on AVS)) Tacrolimus ER (Envarsus XR) 0.75 MG tablet sustained-rele ase 24 hour Take 1.5 mg by mouth 1 (one) time each day Takes a total of 2.5 mg daily One of the 1 mg and two of the 0.75 mg tabs every morining to make for a total of 2.5 mg every morning 180 tablet 1 10/14/19 25 025 Discontinued(Re order (does not appear on AVS)) Active Problems Problem Noted Date Diagnosed Date Diabetes mellitus 12/22/2022 12/22/2022 Hyperlipidemia 12/22/2022 12/22/2022 Obese class I 12/22/2022 12/22/2022 CVA - cerebrovascular accide nt due to cerebral artery occlusion 09/02/2022 Immunodeficiency due to drugs 04/29/2022 Vitamin D deficiency, not otherwise specified Kidney transplant status 02/18/2022 History of renal transplant 11/06/202108/2022 Overview (12/22/2022): campath induction Hypertension 05/27/2020 Type 2 diabetes mellitus wit h diabetic chronic kidney disease 05/27/2020 Renal disorder due to type 2 diabetes mellitus 0 04/23/2020 Epidermoid cyst 10/26/2018 Resolved Problems Problem Noted Date Diagnosed Date Resolved Date Stage 3b chronic kidney disease 03/04/2022 03/23/2022 Dependence on renal dialysis 07/31/2021 02/18/2022 End stage renal disease 07/31/202105/2022 Stage 5 chronic kidney disease 05/27/2020 02/18/2022 Chronic kidney disease stage 4 04/23/2020 02/18/2022 Hypertensive heart and renal disease with (congestive) heart failure 04/23/2020 02/18/2022 Encounters Date Type Department Care Team Description 10/27/2024 Orders Only [facility] [address] [facility] [address] [place] [address] Zack Ballesteros MD Kidney transplant status; Other supervisor intermediates current drug therapy 10/17/2024 Refill [facility] [address] [address] LornePankaj williamsoniana History of renal transplant 10/13/2024 Refill [facility] [address] [address] Pankaj Pradhaniana 10/12/2024 Refill [facility] [address] [address] Conor Shultz MD History of renal transplant 10/11/2024 Office Communication [facility] [address] [address] Evaristo Vidales MD 10/05/2024 Refill [facility] [address] [address] Zack Ballesteros MD History of renal transplant 09/21/2024 Office Communication [facility] [address] [address] Evaristo Vidales MD 09/11/2024 1:00 PM EDT Office Visit [facility] [address] [place] [phone] Evaristo Vidales MD Kidney transplant status (Primary Dx) 09/01/2024 Orders Only [facility] [address] [facility] [address] [place] [phone] Zack Ballesteros MD Kidney transplant status; Other penitentiary current drug therapy; Secondary hyperparathyroidism of renal origin (HCC); Anemia, not otherwise specified from Last 3 Months Immunizations Immunization Administration Dates Next Due Influenza (IM) Preservative Free 11/22/2009,04/2007 Influenza, MDCK, PF, Quadrivalent 11/10/2017 Influenza, Unspecified 11/14/2023,2022,01/01/2022, 8,11/17/2016,11/19/2015,11/22/2009, 008 Moderna SARS-COV-2 10/08/2021 Pfizer SARS-COV-2 01/07/2021,04/26/2020,04/03/19 21 Pneumococcal Polysaccharide 09/16/2018, 6 Shingrix 09/08/2022 Td 09/16/2018 Td, Unspecified 09/16/2018 Tdap 08/24/2015,11/01/2014,07/04/2007 Family History Medical History Relation Comments Diabetes Father Diabetes Mother Relation Status Comments Father Mother Social History Tobacco Use Types Packs/Day Years Used Date Smoking Tobacco: Former Cigarettes Smokeless Tobacco: Never Tobacco Cessation:Counseling Given: Not Answered Alcohol Use Standard Drinks/Week Comments Yes 0 (1 standard drink = 0.6 oz pur e alcohol) Sex and Gender Information Value Date Recorded Sex Assigned at Not on file Legal Sex Male 4:57 PM EST Gender Identity Not on file Sexual Orientation Not on file Last Filed Vital Signs Vital Sign Reading Time Taken Comments Blood Pressure 120/74 09/11/2024 1:03 PM EDT Pulse 88 09/11/2024 1:03 PM EDT Temperature - - Respiratory Rate 16 11/03/2022 9:39 AM EDT Oxygen Saturation 98% 09/11/2024 1:03 PM EDT Inhaled Oxygen Concentration - - Weight 103 kg (226 lb 9.6 oz) 09/11/2024 1:03 PM EDT Height 167.6 cm (5' 6 ) 09/02/2022 8:29 AM EDT Body Mass Index 36.57 09/02/2022 8:29 AM EDT Plan of Treatment Upcoming Encounters Date Type Department Care Team (Late st Contact Info) Description 12/12/2024 11:00 AM EDT Office Visit [facility] [address] [phone] Evaristo Vidales MD [address] [phone] Health Maintenance Due Date Last Done Comments Hepatitis B Vaccine (1 of 3 - 19+ 3-dose series) 1984 Pneumococcal Vaccine: 50+ Ye ars (3 of 3 - PCV) 09/17/2019 09/16/2018, 11/19/2015 Diabetes: Ophthalmology Exam 03/18/2020 Diabetes: Pedal Pulse Checked 03/18/2020 Diabetes: Sensory Foot Exam 03/18/2020 Diabetes: Visual Foot Exam 03/18/2020 Colonoscopy (Post-Transplant Patient) 11/13/2021 Diabetes: Hemoglobin A1C 12/08/2024 025, 02/11/2024, 10/05/2023, Additional history exists Pneumococcal Vaccine: Peds ( 0 to 5 Years) and At-Risk Patients (6 to 49 Years) Discontinued 09/16/2018, 11/19/2015 Influenza Vaccine Completed 09/25/2024, , 10/29/2022, Additional history exists Procedures Procedure Name Priority Date/Time Associated Diagnosis Comments TACROLIMUS LEVEL Routine 10/05/2024 8:58 AM EDT Kidney transplant status CBC AND DIFFERENTIAL Routine 10/05/2024 8:58 AM EDT Kidney transplant status PROTEIN / CREATININE RATIO, URINE Routine 10/05/2024 8:58 AM EDT Kidney transplant status URINE ALBUMIN / CREATININE RATIO Routine 10/05/2024 8:58 AM EDT Kidney transplant status URINALYSIS WITH MICROSCOPIC Routine 10/05/2024 8:58 AM EDT Kidney transplant status RENAL FUNCTION PANEL Routine 10/05/2024 8:58 AM EDT Kidney transplant status MICROSCOPIC EXAMINATION - DO NOT USE Routine 10/05/2024 8:58 AM EDT FERRITIN Routine 09/11/2024 10:15 AM EDT Kidney transplant status Other penitentiary current drug therapy Anemia, not otherwise specified IRON PANEL (FE, TIBC, TSAT) Routine 09/11/2024 10:15 AM EDT Kidney transplant status Other supervisor intermediates current drug therapy Anemia, not otherwise specified PTH, INTACT Routine 09/11/2024 10:15 AM EDT Kidney transplant status Other supervisor intermediates current drug therapy Secondary hyperparathyroidism of renal origin (HCC) URINE ALBUMIN / CREATININE RATIO Routine 09/11/2024 10:15 AM EDT Kidney transplant status LIPID PANEL Routine 09/11/2024 10:15 AM EDT Kidney transplant status Other penitentiary current drug therapy URIC ACID Routine 09/11/2024 10:15 AM EDT Kidney transplant status Other penitentiary current drug therapy TACROLIMUS LEVEL Routine 09/11/2024 10:1 5 AM EDT Kidney transplant status Other penitentiary current drug therapy CBC Routine 09/11/2024 10:15 AM EDT Kidney transplant status Other penitentiary current drug therapy BASIC METABOLIC PANEL Routine 09/11/2024 10:15 AM EDT Kidney transplant status Other supervisor intermediates current drug therapy HEMOGLOBIN A1C Routine 10/05/2023 10:30 AM EDT Kidney transplant status Other penitentiary current drug therapy Type 2 diabetes mellitus without complication (HCC) from Last 3 Months or Most Recently Relevant to Health Maintenance Results * (ABNORMAL) Microscopic Examination (10/05/2024 8:58 AM EDT) WBC, Urine None seen 0 - 5 /hpf [facility] RBC, Urine 0-2 0 - 2 /hpf [facility] Squamous Epithelial, Urine 0-10 0 - 10 /hpf [facility] Casts None seen None seen /lpf [facility] Crystals Present(A) N/A [facility] Crystal Type Calcium Oxalate N/A [facility] Bacteria, Urine None seen None seen/Few [facility] 10/05/2024 8:58 AM EDT 10/05/2024 Evaristo Vidales MD LAB MICROBIOLOGY - GENERAL OR DERABLES Final Result [facility] [address] [place] [address] * Tacrolimus level (10/05/2024 8:58 AM EDT) Only the most recent of2 resultswithin the time period is included. Tacrolimus Lvl 10.2 5.0 - 20.0 ng/mL [facility] Comment: Target steady state trough concentration for Tacrolimus varies based on type of organ transplant immunosuppressive protocol and other patient specific factors. Tacrolimus trough concentrations should be interpreted in conjunction with clinical assessments of rejection and tolerability. Values obtained with different assay methods cannot be used interchangeably due to differences in assay methods and cross-reactivty with metabolites, nor should correction factors be applied. Therefore, consistent use of one assay for individual patients is recommended. Detection Limit = 0.5 ng/mL Performed by LC-MS/MS technology. Blood Venous blood / Unknown 10/05/2024 8:58 AM EDT 10/05/2024 Narrative [facility] - 10/08/2024 8:05 AM EDT Test(s) [id number] ([id number]), Blood was developed and its performance characteristics determined by [employer] It has not been cleared or approved by the Food and Drug Administration. Evaristo Vidales MD LAB BLOOD ORDERABLES Final Re sult Performing Organization Address City/[facility]/ZIP Co de Phone Number [facility] [address] [place] [address] * Protein, Total, Random Urine w/Creatinine (Protein/Creat Ratio) (10/05/2024 8:58 AM EDT) Creatinine, Ur 366.5 Not Estab. mg/dL [facility] Protein, Ur 48.0 Not Estab. mg/dL [facility] Urine Protein/Creatin ine Ratio 131 0 - 200 mg/g creat [facility] Urine Urine specimen obtained by clean catch procedure / Unknown 10/05/2024 8:58 AM EDT 10/05/2024 Evaristo Vidales MD LAB URINE ORDERABLES Final Re sult Performing Organization Address City/[facility]/ZIP Co de Phone Number [facility] [address] [place] [address] * Urine Albumin / Creatinine Ratio (10/05/2024 8:58 AM EDT) Only the most recent of2 resultswithin the time period is included. Albumin, Urine 65.0 Not Estab. ug/mL [facility] Albumin/Creatin ine Ratio 18 0 - 29 mg/g creat [facility] Comment: Normal: 0 - 29 Moderately increased: 30 - 300 Severely increased: >300 Urine Urine specimen obtained by clean catch procedure / Unknown 10/05/2024 8:58 AM EDT 10/05/2024 Evaristo Vidales MD LAB URINE ORDERABLES Final Re sult [facility] [address] [place] [address] * (ABNORMAL) Urinalysis with microscopic (10/05/2024 8:58 AM EDT) Specific [place], Urine >=1.030(A) 1.005 - 1.030 [facility] pH Urine 5.5 5.0 - 7.5 [facility] Color, Urine Yellow Yellow [facility] Appearance Urine Clear Clear [facility] WBC Esterase Urine Negative Negative [facility] Protein, Ur 1+(A) Negative/Tra ce [facility] Glucose, Ur 3+(A) Negative [facility] [phone] Ketones, Urine Trace(A) Negative [facility] [place] [phone] Blood Urine Negative Negative [facility] [phone] Bilirubin Urine Negative Negative [facility] [place] Urobilinogen Urine 1.0 0.2 - 1.0 mg/dL [facility] Nitrite, Urine Negative Negative [facility] [place] Microscopic Examination See below: [facility] [phone] Comment:Microscopic was barbra cated and was performed. Urine Urine specimen obtained by clean catch procedure / Unknown 10/05/2024 8:58 AM EDT 10/05/2024 Evaristo Vidales MD LAB URINE ORDERABLES Final Re sult [facility] [address] [place] [address] * CBC and differential (10/05/2024 8:58 AM EDT) [facility] WBC 7.0 3.4 - 10.8 x10E3/uL [facility] RBC 4.79 4.14 - 5.80 x10E6/uL [facility] Hemoglobin 14.9 13.0 - 17.7 g/dL [facility] Hematocrit 44.6 37.5 - 51.0 % [facility] MCV 93 79 - 97 fL [facility] MCH 31.1 26.6 - 33.0 pg [facility] MCHC 33.4 31.5 - 35.7 g/dL [facility] RDW 13.0 11.6 - 15.4 % [facility] Platelets 187 150 - 450 x10E3/uL [facility] Neutrophils Relative 70 Not Estab. % [facility] Lymphocytes Relative 19 Not Estab. % [facility] Monocytes 6 Not Estab. % [facility] Eosinophils Relative 4 Not Estab. % [facility] Basophils Relative 1 Not Estab. % [facility] Neutrophils Absolute 4.9 1.4 - 7.0 x10E3/uL [facility] Lymphocytes Absolute 1.3 0.7 - 3.1 x10E3/uL [facility] Monocytes Absolute 0.4 0.1 - 0.9 x10E3/uL [facility] Eosinophils Absolute 0.3 0.0 - 0.4 x10E3/uL [facility] Basophils Absolute 0.0 0.0 - 0.2 x10E3/uL [facility] Immature Granulocytes 0 Not Estab. % [facility] Immature Grans (Absolute) 0.0 0.0 - 0.1 x10E3/uL [facility] Blood Venous blood / Unknown 10/05/2024 8:58 AM EDT 10/05/2024 us Evaristo Vidales MD LAB BLOOD ORDERABLES Final Re sult [facility] [address] [place] [address] * (ABNORMAL) Renal Function Panel (10/05/2024 8:58 AM EDT) Glucose 76 70 - 99 mg/dL [facility] BUN 14 6 - 24 mg/dL [facility] Creatinine 1.20 0.76 - 1.27 mg/dL [facility] eGFR CKD-EPI CR 2020 70 >59 mL/min/1.7 3 [facility] BUN/Creatinine Ratio 12 9 - 20 [facility] Sodium 139 134 - 144 mmol/L [facility] Potassium 4.4 3.5 - 5.2 mmol/L [facility] Chloride 105 96 - 106 mmol/L [facility] Bicarbonate (CO2) 19(L) 20 - 29 mmol/L [facility] Calcium 9.5 8.7 - 10.2 mg/dL [facility] Albumin 4.5 3.8 - 4.9 g/dL [facility] Phosphorus 2.1(L) 2.8 - 4.1 mg/dL [facility] Blood Venous blood / Unknown 10/05/2024 8:58 AM EDT 10/05/2024 Evaristo Vidales MD LAB BLOOD ORDERABLES Final Re sult Performing Organization Address City/[facility]/ZIP Co de Phone Number [facility] [address] [place] [address] * Iron Panel (Fe, TIBC, TSAT) (09/11/2024 10:15 AM EDT) TIBC 292 250 - 450 ug/dL [facility] UIBC 223 111 - 343 ug/dL [facility] Iron 69 38 - 169 ug/dL [facility] Iron Saturation (TSat) 24 15 - 55 % [facility] Blood specimen (specimen) Venous blood / Unknown 09/11/2024 10:15 AM EDT 09/11/2024 Zack Ballesteros MD LAB BLOOD ORDERABLES Final Result Performing Organization Address City/[facility]/ZIP Co de Phone Number [facility] [address] [place] [address] * CBC (09/11/2024 10:15 AM EDT) WBC 8.5 3.4 - 10.8 x10E3/uL [facility] RBC 4.91 4.14 - 5.80 x10E6/uL [facility] Hemoglobin 15.0 13.0 - 17.7 g/dL [facility] Hematocrit 46.0 37.5 - 51.0 % [facility] MCV 94 79 - 97 fL [facility] MCH 30.5 26.6 - 33.0 pg [facility] MCHC 32.6 31.5 - 35.7 g/dL [facility] RDW 13.0 11.6 - 15.4 % [facility] Platelets 205 150 - 450 x10E3/uL [facility] Blood specimen (specimen) Venous blood / Unknown 09/11/2024 10:15 AM EDT 09/11/2024 Zack Ballesteros MD LAB BLOOD ORDERABLES Final Result [facility] [address] [place] [address] * Uric acid (09/11/2024 10:15 AM EDT) Uric Acid 6.3 3.8 - 8.4 mg/dL [facility] Comment:Therapeutic target f or gout patients: <6.0 Blood specimen (specimen) Venous blood / Unknown 09/11/2024 10:15 AM EDT 09/11/2024 Zack Ballesteros MD LAB BLOOD ORDERABLES Final Result [facility] [address] [place] [address] * (ABNORMAL) PTH, intact (09/11/2024 10:15 AM EDT) PTH 67(H) 15 - 65 pg/mL [facility] Blood specimen (specimen) Venous blood / Unknown 09/11/2024 10:15 AM EDT 09/11/2024 Zack Ballesteros MD LAB BLOOD ORDERABLES Final Result [facility] [address] [place] [address] * (ABNORMAL) Ferritin (09/11/2024 10:15 AM EDT) Ferritin 808(H) 30 - 400 ng/mL [facility] Blood specimen (specimen) Venous blood / Unknown 09/11/2024 10:15 AM EDT 09/11/2024 Zack Ballesteros MD LAB BLOOD ORDERABLES Final Result Performing Organization Address City/[facility]/ZIP Co de Phone Number [facility] [address] [place] [address] * (ABNORMAL) Lipid panel (09/11/2024 10:15 AM EDT) Cholesterol 78(L) 100 - 199 mg/dL [facility] Triglycerides 118 0 - 149 mg/dL [facility] HDL 36(L) >39 mg/dL [facility] VLDL Cholesterol Mark 21 5 - 40 mg/dL [facility] LDL Calculated 21 0 - 99 mg/dL [facility] Blood specimen (specimen) Venous blood / Unknown 09/11/2024 10:15 AM EDT 09/11/2024 Zack Ballesteros MD LAB BLOOD ORDERABLES Final Result [facility] [address] [place] [address] * (ABNORMAL) BMP (09/11/2024 10:15 AM EDT) Glucose 125(H) 70 - 99 mg/dL [facility] BUN 14 6 - 24 mg/dL [facility] Creatinine 1.16 0.76 - 1.27 mg/dL [facility] eGFR CKD-EPI CR 2020 73 >59 mL/min/1.7 3 [facility] BUN/Creatinine Ratio 12 9 - 20 [facility] Sodium 140 134 - 144 mmol/L [facility] Potassium 5.3(H) 3.5 - 5.2 mmol/L [facility] Chloride 104 96 - 106 mmol/L [facility] Bicarbonate (CO2) 21 20 - 29 mmol/L [facility] Calcium 9.6 8.7 - 10.2 mg/dL [facility] Blood specimen (specimen) Venous blood / Unknown 09/11/2024 10:15 AM EDT 09/11/2024 Zack Ballesteros MD LAB BLOOD ORDERABLES Final Result [facility] [address] [place] [address] * (ABNORMAL) Hemoglobin A1c (10/05/2023 10:30 AM EDT) Hemoglobin A1C 9.2(H) 4.8 - 5.6 % [facility] Comment: Prediabetes: 5.7 - 6.4 Diabetes: >6.4 Glycemic control for adults with diabetes: <7.0 Blood specimen (specimen) Venous blood / Unknown 10/05/2023 10:30 AM EDT 10/05/2023 us Zack Ballesteros MD LAB BLOOD ORDERABLES Final Result [facility] [address] [place] [address] from Last 3 Months or Most Recently Relevant to Health Maintenance Insurance [facility] ([id number]) [place] [id number] [place] [address] Medicare Medicaid [place] [facility] ([id number]) Care Teams Book Sewer Relationship Specialty Start Date End Date Bernadine Servin [address] [place] [id number] PCP - General Internal Medicine 02/23/23
--- OUTSIDE RECORDS SUMMARY | 2024-11-02 16:41 | XMS_ITS | Clinical Summary ---
Author Organization [facility] Address [address] [place] [address] Care Team Providers Care Commercial Front Load Operator Name Role Phone Estuardo Faria MD Primary Care Provider [phone] Social History Tobacco Use Types Packs/Day Years [...] Zoster (Shingles) Vaccine (1 of 2) 2015 Influenza Vaccine 09/15/2024 10/29/2022, , 11/17/2016, Additional history exists COVID-19 Vaccine (2024-2 6 season) 2024 10/08/2021, 01/07/2021, 04/26/2020, Additional history exists Insurance [facility]ICAID [facility] PART A & B Care Teams Commercial Front Load Operator Relationship Specialty Start Date End Date Estuardo Faria MD PCP - General 05/04/22
== END 2024-11-02 15:36 | disposition home or self-care (01) ==
PROVIDERS: PCP Internal Medicine; Visit Provider Anesthesiology
DX: G89.4 Chronic pain syndrome (principal); M47.812 Spondylosis without myelopathy or radiculopathy, cervical region; I69.398 Other sequelae of cerebral infarction
CPT/HCPCS: 99213

== ENCOUNTER → 2024-11-02 15:05 | Outpatient (BNVA) | payer OTHER, SELFPAY | PROVIDERS: PCP Internal Medicine; Visit Provider Anesthesiology | DX: M47.812 Spondylosis without myelopathy or radiculopathy, cervical region (principal); I69.398 Other sequelae of cerebral infarction; G89.4 Chronic pain syndrome; I10 Essential (primary) hypertension | CPT/HCPCS: 99212 ==

== ENCOUNTER 2024-12-12 06:14 | Outpatient (REF) | payer OTHER, SELFPAY ==
--- NOTE | ~2024-12-12 | FL_ITS ---
EXAMINATION: FLUOROSCOPY GUIDANCE FOR NEEDLE PLACEMENT CLINICAL INFORMATION: M47.812 - Spondylosis without myelopathy or radiculopathy, cervical region COMPARISON: Cervical spine x-ray September 2024 TECHNIQUE: Fluoroscopy guidance for pain management procedure. FINDINGS: Images demonstrate needle placement and contrast injection adjacent to the left lateral C3-C5 vertebrae. See procedure note for detailed findings. FLUOROSCOPY TIME: 50 seconds Dose: 557 uGy-m2 (microgray-meter squared) 6 Submitted images FL/FL guidance in treatment room IMPRESSION: Fluoroscopy guidance for pain management procedure. Electronically signed by: Radha Peacock MD 12/12/2024 09:39 AM EDT
--- OUTSIDE RECORDS SUMMARY | 2024-12-12 06:16 | XMS_ITS | Clinical Summary ---
Author Organization [facility] Address [address] [place] [address] Care Team Providers Care It Systems Engineer Name Role Phone Estuardo Faria MD Primary Care Provider [phone] Social History Tobacco Use Types Packs/Day Years [...] , 11/17/2016, Additional history exists COVID-19 Vaccine (5 - 2024-2 6 season) 2024 10/08/2021, 01/07/2021, 04/26/2020, Additional history exists RSV Vaccine 50 years and old er and Patients (1 - 1-dose 75+ series) 2040 Insurance MEDICAID OUT OF STATE [facility] [address] [address] [address] MEDICARE PART A & B Care Teams It Systems Engineer Relationship Specialty Start Date End Date Estuardo Faria MD PCP - General 05/04/22
--- OUTSIDE RECORDS SUMMARY | 2024-12-12 06:16 | XMS_ITS | Clinical Summary ---
Author Organization [employer] [facility] Address [address] [place] [address] Care Team Providers Care Vegetable Cook Name Role Phone Estuardo Faria MD Primary Care Provider [phone] Allergies No known active allergies Medications Medication Sig Dispensed Refills Start Date End Date Status ammonium lactate (AMLACTIN) 12 % cream 12 %. 0 09/03/2009 Act doroteo Blood Glucose Monitoring Suppl ([employer] FREEDOM LITE) w/Device KIT Use daily 0 04/18/2015 Active ergocalciferol (VITAMIN D2) capsule 34071 units TAKE 1 CAPSULE PO EVERY WEEK [...] age to complete this topic Care Teams Vegetable Cook Relationship Specialty Start Date End Date Estuardo Faria MD PCP - General Internal Medicine 09/19/18
--- OUTSIDE RECORDS SUMMARY | 2024-12-12 06:16 | XMS_ITS | Data Portability ---
Author Organization [employer] [facility], [facility] Address [address] [place] [address] Care Team Providers Care Manager Small Business Name Role Phone HIM CCA OTHER Assessment No assessment recorded. Plan of Treatment Reminders Order Date Submit Date Provider Last Modified By Organization Details Last Modified Time Details Appointments None record ed. Lab None record ed. Referral None record ed. Procedures None record ed. Surgeries None record ed. Imaging None record ed. Medication Orders None record ed. Patient TargetsNo targets recorded. Patient InstructionsNo instructions recorded. Reason for Referral None Reported. Medical Equipment None Reported. Medications Name Sig Start Date Stop Date Status Note LastModified by Organization Details LastModified Time atorvastatin 80 mg tablet TAKE 1 TABLET BY MOUTH DAILY active Not Available Not Available Not Available acetaminophe n 325 mg tablet TAKE 1 TABLET BY MOUTH TWICE DAILY NEEDED FOR JOINT PAIN active Not Available Not Available N ot Available clindamycin HCl 150 mg capsule TAKE 2 CAPSULES BY MOUTH THREE TIMES DAILY FOR 7 DAYS active Not Available Not Available N ot Available amlodipine 2.5 mg tablet TAKE 1 TABLET BY MOUTH DAILY active Not Available Not Available Not Available aspirin 81 mg tablet,delay ed release TAKE 1 TABLET BY MOUTH DAILY active Not Available Not Available Not Available doxycycline monohydrate 100 mg tablet TAKE 1 TABLET BY MOUTH TWICE DAILY FOR 7 DAYS active Not Available Not Available No t Available ketorolac 0.5 % eye drops INSTILL 1 DROP INTO AFFECTED EYE THREE TIMES DAILY active Not Available Not Available Not Available prednisolone acetate 1 % eye drops,suspen maddie active Not Available Not Available Not Available baclofen 10 mg tablet TAKE 1 TABLET BY MOUTH TWICE DAILY NEEDED FOR JOINT PAIN active Not Available Not Available N ot Available cephalexin 500 mg capsule TAKE 1 CAPSULE BY MOUTH TWICE DAILY FOR 7 DAYS active Not Available Not Available No t Available oxycodone 5 mg capsule TAKE 1 CAPSULE BY MOUTH EVERY 6 HOURS FOR UP TO 15 DOSES NEEDED FOR PAIN active Not Available Not Available No t Available glucose 4 gram chewable tablet TAKE 4 TABLETS BY MOUTH NEEDED FOR LOW BLOOD SUGAR active Not Available Not Available No t Available Ear Drops (carbamide peroxide) 6.5 % INSTILL 5 DROPS IN BOTH EARS TWICE DAILY FOR 10 DAYS. TILT HEAD SO TREATED EAR POINTS TOWARDS THE CEILING. HOLD MEDICATION IN EAR A COTTON BALL. active Not Available Not Available No t Available lisinopril 5 mg tablet TAKE 1 TABLET BY MOUTH DAILY active Not Available Not Available Not Available levofloxacin 750 mg tablet active Not Available Not Available Not Available Vitamin D2 1,250 mcg (50,000 unit) capsule TAKE 1 CAPSULE BY MOUTH 1 TIME EVERY WEEK active Not Available Not Available No t Available amoxicillin 875 mg-potassium clavulanate 125 mg tablet TAKE 1 TABLET BY MOUTH EVERY 12 HOURS FOR 4 DAYS. active Not Available Not Available Not Available oxycodone 5 mg tablet TAKE 1 TABLET BY MOUTH EVERY 6 HOURS NEEDED FOR PAIN active Not Available Not Available No t Available Lantus Solostar U-100 Insulin 100 unit/mL (3 mL) subcutaneous pen ADMINISTER 70 UNITS UNDER THE SKIN TWICE DAILY active Not Available Not Available No t Available Humalog KwikPen (U-100) Insulin 100 unit/mL subcutaneous INJECT SUB-Q THREE TIMES A DAY PER SLIDING SCALE: 100-150=6 UNITS, 151-200=8U, 201-250=9U, 251-300=10U , 301-350=11U , 351-400=12U , 401-450=14U active Not Available Not Available Not Available Farxiga 10 mg tablet TAKE 1 TABLET BY MOUTH EVERY 7 DAYS active Not Available Not Available No t Available Farxiga 5 mg tablet TAKE 1 TABLET BY MOUTH DAILY active Not Available Not Available Not Available Jardiance 25 mg tablet TAKE 1 TABLET BY MOUTH DAILY active Not Available Not Available Not Available Envarsus XR 1 mg tablet,exten ded release active Not Available Not Available Not Available Envarsus XR 0.75 mg tablet,exten ded release active Not Available Not Available Not Available BD Echo 2nd Gen Pen Needle 32 gauge x USE DIRECTED TO INJECT INSULIN DAILY active Not Available Not Available No t Available Gvoke HypoPen 2-Pack 1 mg/0.2 mL subcutaneous auto-injecto r INJECT 1 DOSE INTO THE SKIN NEEDED FOR LOW BLOOD SUGAR active Not Available Not Available No t Available Trulicity 3 mg/0.5 mL subcutaneous pen injector INJECT 3MG SUBCUTANEOU SLY EVERY 7 DAYS active Not Available Not Available No t Available Trulicity 4.5 mg/0.5 mL subcutaneous pen injector ADMINISTER 4.5 MG UNDER THE SKIN EVERY 7 DAYS active Not Available Not Available No t Available Ozempic 0.25 mg or 0.5 mg (2 mg/3 mL) subcutaneous pen injector INJECT 0.25MG INTO THE SKIN EVERY 7 DAYS. AFTER FIRST MONTH INCREASE TO 0.5 THEN REMAIN AT 0.5 active Not Available Not Available No t Available Vitals Date Recorded Respiratory rate Heart rate Oxygen saturation Oxygen saturation in Arterial blood by Pulse oximetry Body weight Body temperature Systolic And Diastolic Provider Name and Address Organization Details Last Updated DateTime 4 16 /min 86 /min 98 % 98 % 190990. 424 g 97.6 [degF] 148/78 mm[Hg] Not Available [facility] - production 4 14:09:09 Social History None recorded. Functional Status None recorded. Mental Status None recorded. Family History Nothing Reported. Medical History No medical history recorded. Past Encounters Encounter ID Performer Location Encounter Start Date Encounter Closed Date Diagnosis/Indication Diagnosis SNOMED-CT Code Diagnosis ICD10 Code Diagnosis IMO Codes Diagnosis Note [id number] Katelyn Ramirez MD [facility] [address] [place] [phone] 07/28/2023 14:08:55 07/29/2023 09:59:49 Diabetic foot ulcer 955751365 E13.621 Evaluation in the field was performed by my congressional aide colleague, as noted above, I provided real-time direction and supervisio n for this visit. 58yo M with PMHx T2DM, CVA p/w wound on plantar surface L foot which he believes is from AFO brace, required hospitaliz ation for abx 07/03 for superinfec tion. Called today to provide wound care while awaiting arrangemen ts for VNA. On congressional aide eval VS unremarkab le, exam with ulcer on ball of L foot without drainage or surroundin g erythema. Pt has not been seen by podiatry and is using regular shoes. [employer] Supervisor cleansed wound and dressed w/ triple abx ointment.W ould recommend podiatry evaluation to consider offloading shoe to promote healing, con't daily wound care, and arranging for wound care VNA as PCP as already initiated. We discussed the diagnostic uncertaint y of home visits and the risk associated with this. In this case, the patient and I felt this to be an acceptable and reasonable amount of risk given the benefit of avoiding an ED visit. We discussed the need to seek care urgently/e mergently in the setting of any new or worsening serious symptoms, shortness of breath, cough, chest pain, fever. Health Concerns Section Related Observation LastModified by Organization Detai ls LastModified Time None Recorded Concern Status LastModified by Organization Details LastModified Time None Recorded Advance Directives Directive None Recorded Payers Insurance Date Sequence Insurance Name Policy Number Policy Padron Covered Member ID Padron Member ID Guarantor Name 07/28/2023 1 [facility] - DOS ON OR AFTER 2022 - DUAL ELIGIBLE - [employer]FW[employer] OPT[employer] AND ONE [employer] (MEDICARE REPLACEMENT/ADV ANTAGE - HMO) Rashawn Montague [id number] Rashawn Montague Notes Date Note Type Note Provider Name and Address Organization Details Recorded Time 07/28/2023 text/html HPI: HX of CVA, L sided weakness. ................. ................. ................. ................. ................. ................. ................. ................. ..... [facility] Nurse Triage Notes (Melanie Sampson): Comments: Per provider: Azucenar was d/c'd from [facility] on 07/03 for a wound to L foot from wearing his AFO. Mbr has a hx of CVA, L sided weakness. Mbr had a referral to [facility] wound clinic but d/t a 2 month wait list mbr opted not to go. PCP office is working on getting mbr VNA services for wound care. Walter had a f/u PCP apt after d/c from hospital. Mbr is unable to assess wound, wound has not been assessed recently. Could medic please assess/clean wound as needed as mbr is waiting for PCP to find VNA to provide wound care. Thank you ................. ................. ................. ................. ................. ................. ................. ................. ..... [employer] Supervisor Note From Denilson Camarillo: Pt co wound on ball of left foot. Wound has been there 1 month. Pt has been seen and has been treated in hospital setting for wound. Pt putting lidocaine cream on it at night. Pt denies fever , sob , cp, NVD. Baseline vitals assessed. Photos uploaded of wound. Afebrile. Wound did not appear to have infection. C contacted and Pt advised to follow up with book illustrator. [facility] with contact care team for referral to book illustrator. Pt education on signs indicating the ER. Pt left bacitracin packets. Pt advised to apply to wound and use bandaging at night. Pt advised to keep wound clean and rest. ................. ................. ................. ................. ................. ................. ................. ................. ..... Disposition: Fulfilled Katelyn Ramirez MD [address] [facility],[address], [place], [address], [employer] 07/28/2023 15:10:55
== END 2024-12-12 06:15 | disposition home or self-care (01) ==
LOC: CF 06:14
PROVIDERS: Visit Provider Anesthesiology
DX: M47.812 Spondylosis without myelopathy or radiculopathy, cervical region (principal)
CPT/HCPCS: 64490; 64491; J2003; J2795; Q9967

== ENCOUNTER 2024-12-12 08:17 | Outpatient (AMB) | payer OTHER, SELFPAY ==
[2024-12-12 08:22] VITALS: BP 144/72; PULSE 74; RESP 16; O2SAT 99; BMI 38.1
--- NOTE | 2024-12-12 08:22 | MHC.OFFVIS ---
Vital Signs 12/12/24 08:22 12/12/24 08:49 Height 5 ft 6 in Weight 236 lb BMI 38.1 BP 144/72 H 153/71 H Blood Pressure Location Lt brachial Lt brachial Position Sitting Sitting Respiration 16 16 Pulse 74 69 Pulse Source Pulse Oximeter Pulse Oximeter Pulse Oximetry (%) 99 98 Oxygen Delivery Method Room Air Room Air Intake Visit Reasons: Left Diagnostic C4-C5-C6 MBB Allergies No Known Allergies Allergy (Verified 11/02/24 15:15) Physical Exam Vital Signs: Last Vital Signs Pulse 69 12/12/24 08:49 Resp 16 12/12/24 08:49 BP 153/71 H 12/12/24 08:49 Pulse Ox 98 12/12/24 08:49 Oxygen Delivery Method Room Air 12/12/24 08:49 BMI result Body Mass Index 38.1 Assessment & Plan Assessment & Plan (1) Spondylosis of cervical spine: Code(s): M47.812 - Spondylosis without myelopathy or radiculopathy, cervical region Category: Medical Plan Diagnostic medial branch block C4-C5 C6 on the left. Rashawn is very pleasant 59 years old gentleman who came to my office complaining on left-sided neck pain. 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 Informed consent was explained to the patient and risks and benefits were explained. Patient expressed understanding. He came to the operating room and was positioned prone on the operating table. Time-out was performed delineating name and date of of the patient side and site of the procedure. The upper back and posterior neck were prepped with ChloraPrep and draped with sterile self adhesive utility towels. C-arm was brought over the operating field and sq picture of C4, C5 and C6 vertebra were demonstrated on the screen. Lateral masses of the vertebras on the left were chosen as the target of the injection. The waistline of each of the lateral mass was chosen the point of final needle advancement. The projection of the lateral masses to the skin was injected with mixture of lidocaine 2% % and ropivacaine 0.5 % forming the skin wheals. After that 22 gauge 5 in needle was sequentially advanced to were the points of interest in tunnel vision fashion. When tip of the needle gently contacted the bone injection of the contrast was performed demonstrating no intravascular and no intrathecal spread of the contrast. After that of the treatment solution of ropivacaine 0.5% no more than 1 cc was performed in in the each needle positioned. Upon completion of the injection the needle was removed sterile Band-Aid was applied. Patient tolerated procedure well. Orders: Orders FL guidance in treatment room Today M47.812 - Spondylosis without myelopathy or radiculopathy, cervical region Coding Level of Care Code Procedure Only Diagnoses Spondylosis of cervical spine M47.812
[2024-12-12 08:49] VITALS: BP 153/71; PULSE 69; RESP 16; O2SAT 98
== END 2024-12-12 08:51 | disposition home or self-care (01) ==
LOC: HO.PMCPRC 08:17
PROVIDERS: PCP Internal Medicine; Visit Provider Anesthesiology
DX: M47.812 Spondylosis without myelopathy or radiculopathy, cervical region (principal)
CPT/HCPCS: 64490; 64491

== ENCOUNTER 2024-12-14 13:02 | Outpatient (AMB) | payer OTHER, SELFPAY ==
--- OUTSIDE RECORDS SUMMARY | 2024-12-12 11:00 | XMS_ITS | Encounter Summary ---
Author Organization [facility] Address [address] [place] [address] Phone Care Team Providers Care [place] Laborer Name Role Phone Zoë Servinmana Primary Care Provider [phone] Encounter Details Date Type Department Care Team (Late st Contact Info) Description 12/12/2024 11:00 AM EDT Office Visit [facility] [address] [place] [phone] Evaristo Vidales MD [address] [place] [phone] Kidney transplant status (Primary Dx); Type 2 diabetes mellitus with diabetic chronic kidney disease, not otherwise specified (HCC); History of renal transplant Social History Tobacco Use Types Packs/Day Years [...] on file documented as of this encounter Last Filed Vital Signs Vital Sign Reading Time Taken Comments Blood Pressure 120/60 12/12/2024 11:14 AM EDT Pulse 75 12/12/2024 11:14 AM EDT Temperature - - Respiratory Rate - - Oxygen Saturation 98% 12/12/2024 11:14 AM EDT Inhaled Oxygen Concentration - - Weight 105 kg (231 lb) 12/12/2024 11:14 AM EDT Height - - Body Mass Index 37.28 09/02/2022 8:29 AM EDT documented in this encounter Patient Instructions * Patient Instructions* Evaristo Vidales MD - 12/12/2024 11:00 AM EDT No NSAIDS - Do not take non-steroidal anti-inflammatory medications (NSAIDS) such as Ibuprofen (Advil, Motrin, etc), Naproxen (Aleve, etc), Celecoxib (Celebrex) or Ketoprofen. These common arthritis medications can cause permanent kidney damage or worsen your kidney damage. For mild occasional pain, Acetaminophen (Tylenol, etc) is safe for your kidneys. Sodium and Your CKD Diet: How to Spice Up Your Cooking What is sodium? Sodium is a mineral found naturally in foods and is the major part of table salt. What are the effects of eating too much sodium? When your kidneys are not healthy, extra sodium and fluid build up in your body. This can cause swollen ankles, puffiness, a rise in blood pressure, shortness of breath, and/or fluid around your heart and lungs. See the following table for suggestions on how to reduce sodium in your diet. LIMIT THE [AMOUNT OF... FOOD TO LIMIT BECAUSE OF THEIR HIGH SODIUM CONTENT ACCEPTABLE SUBSTITUTES SALT & SALT SEASONINGS Table salt Seasoning salt Garlic salt Onion salt Celery salt Lemon pepper Lite salt Meat tenderizer Bouillon cubes Flavor enhancers Fresh garlic, fresh onion, garlic powder, onion powder, black [pepper, lemon juice, low-sodium/salt-free seasoning blends, vinegar SALTY FOODS Barbecue sauce Steak sauce Soy sauce Teriaky sauce Oyster sauce Salted Snacks such as Crackers Potato chips [place] chips Pretzels Tortilla chips Nuts Popcorn [place] seeds Homemade or low- sodium sauces and salad dressings; Vinegar, dry mustard, unsalted popcorn, pretzels, tortilla or corn chips Cured Foods Ham Salt pork Luke Sauerkraut Pickles, pickle relish Lox & Gibbs Olives Fresh beef, veal, pork, poultry, fish, eggs [place] MEATS Hot Dogs Cold cuts, deli meats Pastrami Sausage Corned beef Spam Low-salt deli meats PROCESSED FOODS Buttermilk Cheese Canned: Soups Tomato products Vegetable juices Canned vegetables Convenience Foods such as: TV Dinners Canned raviolis Lenox Macaroni & Cheese Spaghetti Frozen prepared foods Fast foods Natural cheese (1-2 oz Per week) Homemade or alonzo,1- sodium soups, canned food without added salt Homemade casseroles without added salt, made with fresh or raw vegetables, fresh meat, karli, pasta, or unsalted canned vegetables Some salt or sodium is needed for body water balance. But when your kidneys lose the ability to control sodium and water balance, you may experience the following: thirst fluid gain high blood pressure discomfort during dialysis By using less sodium in your diet, you can control these problems. Hints to keep your sodium intake down Cook with herbs and spices instead of salt. (Refer to Spice Up Your Cooking section for further suggestions.) Read food labels and choose those foods low in sodium. Avoid salt substitutes and specialty low-sodium foods made with salt substitutes because they are high in potassium. When eating out, ask for meat or fish without salt. Ask for gravy or sauce on the side; these may contain large amounts of salt and should be used in small amounts . Limit use of canned, processed and frozen foods. Some information about reading labels Understanding the terms: Sodium Free - Only a trivial amount of sodium per serving. Very Low Sodium - 35 mg or less per serving. Low Sodium - 140 mg or less per serving. Reduced Sodium - Foods in which the level of sodium is reduced by 25%. Light or Lite in Sodium - Foods in which the sodium is reduced by at least 50% . Simple rule of thumb : If salt is listed in the first five ingredients, the item is probably too high in sodium to use. All food labels now have milligrams (mg) of sodium listed. Follow these steps when reading the sodiwn information on the label: 1. Know how much sodium you are allowed each day. Remember that there are 1000 milligrams (mg) in 1gram. For puoi7ulu, if your diet prescription is 2 grams of sodium , your limit is 2000 milligrams per day. Consider the sodium value or other food to be eaten during the day. 2. Look at the package label. Check the serving size. Nutrition values are expressed per lesa g. How does this compare to your total daily allowance? If the sodium level is 500 mg or more per serving, the item is not a good choice. 3. Compare labels of similar products. Select the lowest sodium level for the same serving size. How to Spice Up Your Cooking Giving up salt does not mean giving up flavor. Learn to season your food with herbs and spices. Be creative and experiment for a new and exciting flavor. What kinds of spices and herbs should I use instead of salt to add flavor? Try the following spices with the foods listed. Allspice: Use with beef, fish, beets, cabbage, canots, peas, fruit. Basil: Use with beef, pork, most vegetables. Sartell Ronan: Use with beef, pork, most vegetables. [place]inna: Use with beef, pork, green beans, cauliflower, cabbage, beets, asparagus, and in dips and marinades. Cardamom: Use with fruit and in baked goods. Ernandez: Use with beef, chicken, pork, fish, green beans, carrots and in marinades. Dill: Use with beef, chicken, green beans, cabbage, carrots, peas and in dips. Vivien: Use with beef, chicken, pork, green beans, cauliflower and eggplant. Marjoram: Use with beef, chicken, pork, green beans, cauliflower and eggplant. Autumn: Use with chicken, pork, cauliflower, peas and in marinades. Thyme: Use with beef, chicken, pork, fish, green beans, beets and carrots. Tod: Use with chicken, pork, eggplant and in dressing. Tarragon: Use with fish, chicken, asparagus, beets, cabbage, cauliflower and in marinades. Tips for cooking with herbs and spices Purchase spices and herbs in small amounts . When they sit on the shelf for years they lose their flavor. Use no more than ?? teaspoon of dried spice (?? of fresh) per pound of meat. Add ground spices to food about 15 minutes before the end of the cooking period. Add whole spices to food at least one hour before the end of the cooking period. Combine herbs with oil or butter, set for 30 minutes to bring out their flavor, then brush on foodswhile they cook, or brush meat with oil and sprinkle herbs one hour before coolcing. Crush dried herbs before adding to foods. Can I use salt substitutes? Caution! If you are told to limit potassium in your diet, be very cautious about using salt substitutes because most of them contain some form of potassium. Check with your doctor or dietitian beforeusing and salt substitute. [place] and create your own seasoning containing those spices that you like. If you would like to become a volunteer and find out more about what's happening where you live, contact your local [facility] Affiliate. Blood pressure monitoring education: Monitor home blood pressure values after sitting for 5 minutes with back and arm support. Keep a log. Bring your log and blood pressure cuff to your next visit. documented in this encounter Progress Notes * Evaristo Vidales MD - 12/12/2024 11:00 AM EDT Images from the original note were not included. Patient Name: Rashawn Montague, Male Date of : 1965, 59 y.o. Date: 12/12/24 Seen today re: XPLANT management Overall doing well. Cont with L sided weakness d/t prior CVA 2020. L shoulder pain Hx of XPLANT Date of Transplant: 10/2021 Transplant Type: LRD from Son Cause of Renal Failure: diabetes Prior Modality: Hemodialysis Current Modality: Transplant LR (son) kidney transplant at [facility] 11/06/2021 Induction: Campath/methylpred Cause of ESRD: diabetic nephropathy Prior mod: hemodialysis CMV pos EBV pos BK neg Rashawn Montague is a 57 y.o. male with PMHx of ESRD 2/2 to Diabetic kidney disease s/p LRKT (son) in11/06 here for post transplant care. Past Medical History Past Medical History: Diagnosis Date Bilateral cataracts Glaucoma with ocular HTN Hypertension Type 2 diabetes mellitus (HCC) retinopathy Past Surgical History Past Surgical History: Procedure Laterality Date OTHER SURGICAL HISTORY hand surgery Family History Family History Problem Relation Age of Onset Diabetes Mother Diabetes Father Social History Social History Tobacco Use Smoking status: Former Current packs/day: 0.50 Types: Cigarettes Smokeless tobacco: Never Substance Use Topics Alcohol use: Yes Review of Systems Constitutional: Negative for chills and fever. Respiratory: Negative for cough and shortness of breath. Cardiovascular: Negative for chest pain and leg swelling. Gastrointestinal: Negative for constipation, diarrhea, nausea and vomiting. Genitourinary: Negative for dysuria. Neurological: Negative for dizziness. Medication List Current Outpatient Medications Medication Sig Dispense Refill Aspirin Low Dose 81 MG EC tablet Take 81 mg by mouth 1 (one) time each day atorvastatin (LIPITOR) 80 MG tablet Take 1 tablet (80 mg total) by mouth 1 (one) time each day 30 tablet 11 Dapagliflozin Propanediol 10 MG tablet Take 10 mg by mouth in the morning. FREESTYLE LITE test strip gabapentin (NEURONTIN) 100 MG capsule Take 100 mg by mouth in the morning and 100 mg in the eveningand 100 mg before bedtime. HumaLOG KWIKPEN 100 UNIT/ML solution pen-injector Lantus SoloStar 100 UNIT/ML injection INJECT 30 UNITS UNDER THE SKIN EVERY NIGHT AT BEDTIME. GO UP 5 UNITS EVERY WEEK IF FASTING BLOOD SUGHAR ABOVE 120. MAX DOSE 80 UNITS polyethylene glycol (GLYCOLAX) 17 GM/SCOOP powder Take 17 g by mouth Tacrolimus ER (Envarsus XR) 0.75 MG tablet sustained-release 24 hour Take 1.5 mg by mouth 1 (one) time each day Takes a total of 2.5 mg daily One of the 1 mg and two of the 0.75 mg tabs every morining to make for a total of 2.5 mg every morning 180 tablet 1 Tacrolimus ER (Envarsus XR) 1 MG tablet sustained-release 24 hour Take 1 mg by mouth 1 (one) time each day Take 1 mg tab along with (2) 0.75 mg tabs for a total dose of 2.5 mg daily. 90 tablet 3 Trulicity 4.5 MG/0.5ML solution pen-injector ADMINISTER 4.5 MG UNDER THE SKIN EVERY 7 DAYS No current facility-administered medications for this visit. Allergy List No Known Allergies Physical Exam BP 120/60 Pulse 75 Wt 231 lb (105 kg) SpO2 98% BMI 37.28 kg/m?? 124/68 Vitals reviewed. Constitutional: He is oriented to person, place, and time. HEENT: Mouth/Throat: Oropharynx is clear and moist. Eyes: Conjunctivae are normal. Cardiovascular: Normal rate and regular rhythm. He exhibits no edema. Pulmonary/Chest: Effort normal and breath sounds normal. Abdominal: Soft. Bowel sounds are normal. Neurological: He is alert and oriented to person, place, and time. Skin: Skin is warm and dry. Psychiatric: He has a normal mood and affect. Labs Chemistry Lab Units 12/12/24 1150 10/05/24 0858 09/11/24 1015 09/07/24 1437 09/07/24 1145 03/21/24 1201 02/11/24 1052 12/08/23 1012 10/05/23 1030 07/07/23 1057 07/07/23 1056 07/07/23 0000 07/04/23 0000 07/01/23 0000 05/17/23 0853 05/17/23 0000 05/17/23 0000 02/23/23 1000 02/23/23 1000 12/23/22 0812 CREATININE mg/dL 1.19 1.20 1.16 1.22 -- 1.17 -- 1.38* 1.26 -- -- -- 1.45* 1.28 1.36* -- 1.36* -- 1.3* 1.2 BUN mg/dL 17 14 14 16 -- 14 -- 14 15 -- -- -- 21 17 18 -- 18 -- 19 23* POTASSIUM mmol/L 4.5 4.4 5.3* 4.2 -- 4.5 -- 4.5 4.9 -- -- -- 4.3 4.2 5.2 -- 5.2 -- 5.1 4.7 SODIUM mmol/L 141 139 140 138 -- 140 -- 146* 140 -- -- -- 139 136* 139 -- 139 -- 141 141 CO2 mmol/L 17* 19* 21 26 -- 20 -- 24 21 -- -- -- -- -- 21 -- 21* < > 24 25 CHLORIDE mmol/L 106 105 104 107 -- 104 -- 107* 104 -- -- -- 109.0* 104.0 104 -- 104.0 -- 106 104 ALBUMIN g/dL 4.4 4.5 -- 4 -- 4.5 -- 4.3 -- -- -- -- -- -- 4.5 -- 4.5 < > 4.7 4.5 EGFRNAFR -- -- -- -- -- -- -- -- -- -- -- -- 56 65 -- -- 60 -- 67 68 EGFR mL/min/1.73 70 70 73 68 -- 72 -- 59* 66 -- -- -- -- -- 60 < > -- -- -- -- HEMOGLOBIN A1C % -- -- -- -- 7.6* -- 8.6* -- 9.2* 7.8* -- -- -- -- -- -- -- -- -- -- WBC AUTO x10E3/uL 7.1 7.0 8.5 -- -- -- -- 8.1 6.4 -- 8.5 < > -- 7.7 8.2 -- 8.2 < > 10.48.0 HEMATOCRIT % 44.3 44.6 46.0 -- -- -- -- 40.2 39.6 -- 41.3 < > -- 39.9* 41.8 -- 41.8 < >41.5 41.1 HEMOGLOBIN g/dL 14.3 14.9 15.0 -- -- -- -- 13.6 13.1 -- 13.1 < > -- 12.9* 13.7 -- 13.7 < > 13.6* 12.5* PLATELETS AUTO x10E3/uL 189 187 205 -- -- -- -- 195 190 -- 207 < > -- 193 199 -- 199 -- 195 288 < > = values in this interval not displayed. Bone Mineral Lab Units 12/12/24 1150 10/05/24 0858 09/11/24 1015 09/11/24 0857 09/07/24 1437 03/21/24 1201 12/08/23 1012 10/05/23 1030 07/07/23 1056 07/04/23 0000 07/01/23 0000 05/17/23 0853 02/23/23 1000 12/23/22 0812 CALCIUM mg/dL 9.4 9.5 9.6 -- 9.4 9.7 9.8 9.3 -- 9.1 < > 9.7 < > 9.9 PHOSPHORUS mg/dL 3.0 2.1* -- -- -- 3.1 3.1 -- -- 2.9 -- 2.8 < > 3.1 ALK PHOS unit/L -- -- -- 129* 135* -- -- -- -- -- -- -- -- -- PTH pg/mL -- -- 67* -- -- -- 47 58 53 -- -- -- -- 77* VITAMIN D NG/ML -- -- -- -- -- -- -- -- -- -- -- -- -- 54.8* VIT D 25 HYDROXY ng/mL -- -- -- -- -- -- -- -- 40.5 -- -- -- -- -- < > = values in this interval not displayed. Urine Lab Units 12/12/24 1150 10/05/24 0858 09/11/24 1015 09/07/24 1146 03/21/24 1201 10/05/23 1030 07/07/23 1056 05/17/23 0853 02/23/23 1000 PROT/CREAT RATIO UR mg/g creat 81 131 -- -- 73 -- 104 101 0.10 ALB MG/G CREAT UR mg/g creat 9 18 17 32* 11 5 6 20 6.8 214.4 Iron Studies Lab Units 09/11/24 1015 10/05/23 1030 05/17/23 0853 FERRITIN ng/mL 808* 949* 1,049* TIBC ug/dL 292 255 263 IRON SATURATION % 24 35 32 Transplant Lab Units 12/12/24 1150 10/05/24 0858 09/11/24 1015 03/21/24 1201 10/05/23 1031 07/07/23 1056 TACROLIMUS LVL ng/mL 4.9* 10.2 3.7* 6.1 7.0 3.9 BK VIRUS DNA, PCR IU/mL -- -- -- -- -- Negative Labs Lab Units 09/11/24 1015 10/05/23 1030 CHOLESTEROL TOTAL mg/dL 78* 77* HDL mg/dL 36* 32* TRIGLYCERIDES mg/dL 118 84 Urine Lab Units 12/12/24 1150 10/05/24 0858 09/11/24 1015 09/07/24 1146 03/21/24 1201 10/05/23 1030 07/07/23 1056 05/17/23 0853 02/23/23 1000 PROT/CREAT RATIO UR mg/g creat 81 131 -- -- 73 -- 104 101 0.10 ALB MG/G CREAT UR mg/g creat 9 18 17 32* 11 5 6 20 6.8 214.4 Urine Lab Units 12/12/24 1150 10/05/24 0858 03/21/24 1201 07/07/23 1056 05/17/23 0853 02/23/23 1000 12/23/22 0812 PH U 6.0 5.5 5.5 6.0 6.0 5.5 6.0 COLOR U Yellow Yellow Yellow Yellow Yellow -- -- GLUCOSE UR 3+* 3+* 3+* Trace* 3+* 4+* 4+* KETONES U MG/DL -- -- -- -- -- NEGATIVE NEGATIVE WBC UR HPF /hpf None seen None seen None seen None seen None seen <1 <1 RBC UR HPF /hpf None seen 0-2 None seen None seen None seen 2 1 PROTEIN UR mg/dL 5.5 48.0 17.7 16.2 13.5 -- -- UROBILINOGEN U MG/DL MG/DL -- -- -- -- -- NORMAL NORMAL UROBILINOGEN UA mg/dL 0.2 1.0 0.2 0.2 0.2 -- -- Iron Studies Lab Units 09/11/24 1015 10/05/23 1030 05/17/23 0853 FERRITIN ng/mL 808* 949* 1,049* TIBC ug/dL 292 255 263 IRON SATURATION % 24 35 32 Labs Lab Units 12/12/24 1150 10/05/24 0858 09/11/24 1015 03/21/24 1201 10/05/23 1031 07/07/23 1056 TACROLIMUS LVL ng/mL 4.9* 10.2 3.7* 6.1 7.0 3.9 Assessment & Plan 1. Kidney transplant status 2. Type 2 diabetes mellitus with diabetic chronic kidney disease, not otherwise specified (HCC) 3. History of renal transplant Graft function - Scr range 1.1--1.4 - Last DSA was neg 11/03/22 - Cf-DNA neg 0.54 on 05/27/22 - TP/CR ratio wnl from 2. Immunosuppression - Taking Envarsus 2.5 mg oral daily monotherapy - Last FK level 10.2 while on envarsus 3 mg ( 09/2024) and so decr 2.5 mg Repeat tacro now 4.9 ( 12/12/24) 3. Infection - BK blood PCR neg on 12/23/22 4. Heme noted 5. HTN Controlled off meds 6. Bone metabolism/electrolytes Acceptable 7. DM On trulicity and dapaglifozin 10mg PLAN: cont to track renal func and Tacro q 3 months; avoid NSAIDs; cont BS control; yearly Derm f/u PT needs yearly Derm screening given signif increase risk of skin cancer in Xplant patients on IS treatment Orders Placed This Encounter Microscopic Examination Renal Function Panel Urinalysis with microscopic Urine Albumin / Creatinine Ratio Protein, Total, Random Urine w/Creatinine (Protein/Creat Ratio) CBC and differential Tacrolimus STAT Return in about 3 months (around 03/14/2025). Evaristo Vidales MD documented in this encounter Plan of Treatment Upcoming Encounters Date Type Department Care Team (Late st Contact Info) Description 03/13/2025 2:00 PM EST Office Visit [facility] [address] [phone] Evaristo Vidales MD [address] [phone] documented as of this encounter Procedures Procedure Name Priority Date/Time Associated Diagnosis Comments TACROLIMUS, HIGHLY SENSITIVE, LC/MS/MS Routine 12/12/2024 11:50 AM EDT Kidney transplant status Type 2 diabetes mellitus with diabetic chronic kidney disease, not otherwise specified (HCC) History of renal transplant MICROSCOPIC EXAMINATION - DO NOT USE Routine 12/12/2024 11:50 AM EDT PROTEIN / CREATININE RATIO, URINE Routine 12/12/2024 11:50 AM EDT Kidney transplant status Type 2 diabetes mellitus with diabetic chronic kidney disease, not otherwise specified (HCC) History of renal transplant URINE ALBUMIN / CREATININE RATIO Routine 12/12/2024 11:50 AM EDT Kidney transplant status Type 2 diabetes mellitus with diabetic chronic kidney disease, not otherwise specified (HCC) History of renal transplant URINALYSIS WITH MICROSCOPIC Routine 12/12/2024 11:50 AM EDT Kidney transplant status Type 2 diabetes mellitus with diabetic chronic kidney disease, not otherwise specified (HCC) History of renal transplant CBC AND DIFFERENTIAL Routine 12/12/2024 11:50 AM EDT Kidney transplant status Type 2 diabetes mellitus with diabetic chronic kidney disease, not otherwise specified (HCC) History of renal transplant RENAL FUNCTION PANEL Routine 12/12/2024 11:50 AM EDT Kidney transplant status Type 2 diabetes mellitus with diabetic chronic kidney disease, not otherwise specified (HCC) History of renal transplant documented in this encounter Results * Microscopic Examination (12/12/2024 11:50 AM EDT) WBC, Urine None seen 0 - 5 /hpf [facility] RBC, Urine None seen 0 - 2 /hpf [facility] Squamous Epithelial, Urine 0-10 0 - 10 /hpf [facility] Casts None seen None seen /lpf [facility] Bacteria, Urine None seen None seen/Few [facility] 12/12/2024 11:5 0 AM EDT 12/12/2024 us Evaristo Vidales MD LAB MICROBIOLOGY - GENERAL OR DERABLES Final Result [facility] [address] [place] [address] * (ABNORMAL) Tacrolimus STAT (12/12/2024 11:50 AM EDT) Pathologist [facility] Tacrolimus by Immunoassay 4.9(L) 5.0 - 20.0 ng/mL [facility] Comment: Detection Limit = 0.8 ng/mL Target steady state trough concentration for Tacrolimus [...] one assay for individual patients is recommended. Tacrolimus assay performed by [facility]. 12/12/2024 11:5 0 AM EDT 12/12/2024 Evaristo Vidales MD LAB BLOOD ORDERABLES Final Re sult [facility] [address] [place] [address] * CBC and differential (12/12/2024 11:50 AM EDT) Pathologist [facility] WBC 7.1 3.4 - 10.8 x10E3/uL [facility] RBC 4.74 4.14 - 5.80 x10E6/uL [facility] Hemoglobin 14.3 13.0 - 17.7 g/dL [facility] Hematocrit 44.3 37.5 - 51.0 % [facility] MCV 94 79 - 97 fL [facility] MCH 30.2 26.6 - 33.0 pg [facility] MCHC 32.3 31.5 - 35.7 g/dL [facility] RDW 12.2 11.6 - 15.4 % [facility] Platelets 189 150 - 450 x10E3/uL [facility] Neutrophils Relative 73 Not Estab. % [facility] Lymphocytes Relative 18 Not Estab. % [facility] Monocytes 5 Not Estab. % [facility] Eosinophils Relative 3 Not Estab. % [facility] Basophils Relative 1 Not Estab. % [facility] Neutrophils Absolute 5.2 1.4 - 7.0 x10E3/uL [facility] Lymphocytes Absolute 1.3 0.7 - 3.1 x10E3/uL [facility] Monocytes Absolute 0.4 0.1 - 0.9 x10E3/uL [facility] Eosinophils Absolute 0.2 0.0 - 0.4 x10E3/uL [facility] Basophils Absolute 0.0 0.0 - 0.2 x10E3/uL [facility] Immature Granulocytes 0 Not Estab. % [facility] Immature Grans (Absolute) 0.0 0.0 - 0.1 x10E3/uL [facility] Blood Venous blood / Unknown 12/12/2024 11:50 AM EDT 12/12/2024 us Evaristo Vidales MD LAB BLOOD ORDERABLES Final Re sult [facility] [address] [place] [address] * Protein, Total, Random Urine w/Creatinine (Protein/Creat Ratio) (12/12/2024 11:50 AM EDT) Creatinine, Ur 67.5 Not Estab. mg/dL [facility] Protein, Ur 5.5 Not Estab. mg/dL [facility] Urine Protein/Creatin ine Ratio 81 0 - 200 mg/g creat [facility] Urine Urine specimen obtained by clean catch procedure / Unknown 12/12/2024 11:50 AM EDT 12/12/2024 Evaristo Vidales MD LAB URINE ORDERABLES Final Re sult Performing Organization Address City/[facility]/ZIP Co de Phone Number [facility] [address] [place] [phone] * Urine Albumin / Creatinine Ratio (12/12/2024 11:50 AM EDT) Albumin, Urine 5.9 Not Estab. ug/mL [facility] Albumin/Creatin ine Ratio 9 0 - 29 mg/g creat [facility] Comment: Normal: 0 - 29 Moderately increased: 30 - 300 Severely increased: >300 Urine Urine specimen obtained by clean catch procedure / Unknown 12/12/2024 11:50 AM EDT 12/12/2024 Evaristo Vidales MD LAB URINE ORDERABLES Final Re sult Performing Organization Address City[facility] Co de Phone Number [facility] [address] [place] [phone] * (ABNORMAL) Urinalysis with microscopic (12/12/2024 11:50 AM EDT) Specific [place], Urine >=1.030(A) 1.005 - 1.030 [facility] [phone] pH Urine 6.0 5.0 - 7.5 [facility] [phone] Color, Urine Yellow Yellow [facility] Appearance Urine Clear Clear [facility] WBC Esterase Urine Negative Negative [facility] Protein, Ur Negative Negative/Tra ce [facility] Glucose, Ur 3+(A) Negative [facility] Ketones, Urine Negative Negative [facility] Blood Urine Negative Negative [facility] Bilirubin Urine Negative Negative [facility] Urobilinogen Urine 0.2 0.2 - 1.0 mg/dL [facility] Nitrite, Urine Negative Negative [facility] Microscopic Examination Comment [facility] Comment:Microscopic follows if indicated. Other Microsc. Observations See below: [facility] Comment:Microscopic was barbra cated and was performed. Urine Urine specimen obtained by clean catch procedure / Unknown 12/12/2024 11:50 AM EDT 12/12/2024 us Evaristo Vidales MD LAB URINE ORDERABLES Final Re sult [facility] [address] [place] [address] * (ABNORMAL) Renal Function Panel (12/12/2024 11:50 AM EDT) Glucose 261(H) 70 - 99 mg/dL [facility] BUN 17 6 - 24 mg/dL [facility] Creatinine 1.19 0.76 - 1.27 mg/dL [facility] eGFR CKD-EPI CR 2020 70 >59 mL/min/1.7 3 [facility] BUN/Creatinine Ratio 14 9 - 20 [facility] Sodium 141 134 - 144 mmol/L [facility] Potassium 4.5 3.5 - 5.2 mmol/L [facility] Chloride 106 96 - 106 mmol/L [facility] Bicarbonate (CO2) 17(L) 20 - 29 mmol/L [facility] Calcium 9.4 8.7 - 10.2 mg/dL [facility] Albumin 4.4 3.8 - 4.9 g/dL [facility] Phosphorus 3.0 2.8 - 4.1 mg/dL [facility] Blood Venous blood / Unknown 12/12/2024 11:50 AM EDT 12/12/2024 us Evaristo Vidales MD LAB BLOOD ORDERABLES Final Re sult [facility] [address] [place] [address] documented in this encounter Visit Diagnoses Diagnosis Kidney transplant status- Primary Type 2 diabetes mellitus with diabetic chronic kidney disease, not otherwise specified (HCC) History of renal transplant documented in this encounter Care Teams Shrimp Pond Laborer Relationship Specialty Start Date End Date Bernadine Servin [address] [place] [id number] PCP - General Internal Medicine 02/23/23 documented as of this encounter
[2024-12-14 13:09] VITALS: BP 124/58; PULSE 85; RESP 16; O2SAT 96; BMI 37.4
--- NOTE | 2024-12-14 13:09 | MHC.OFFVIS ---
Vital Signs 12/14/24 13:09 Height 5 ft 6 in Weight 232 lb BMI 37.4 BP 124/58 L Blood Pressure Location Lt brachial Position Sitting Respiration 16 Pulse 85 Pulse Source Pulse Oximeter Pulse Oximetry (%) 96 Oxygen Delivery Method Room Air Intake Visit Reasons: S/P Left Diagnostic C4-C5-C6 MBB Straight Slicing Machine Operator Required: No Accompanied by: Self / Same As Patient Allergies No Known Allergies Allergy (Verified 12/14/24 13:09) HPI Comments Details: Rashawn is back in my office after diagnostic medial branch block C4, C5, C6 on the left. He reports pain before the procedure 8/10. He reports skin irritation immediately after the procedure and at the 1st 4 hours after the procedure in the range of 4/10. However his chronic pain was completely absent. He reports pain 0/10 starting from 6 hour after the procedure and up until now. He reports only minor pressure in the neck however denies any pain at the time of the examination. I believe this patient will be a good candidate for sprint PNS on the left. I will schedule procedure accordingly. There is a straightening of the spinal canal doses of the x-ray. Prior: complains on pain in the left side of his neck. He reports that this pain started after the stroke in 2020. He reports pain in the lateral and posterior surface of the neck on the left. He denies pain in his shoulder. He reports that because of his pain he has difficulty sleeping at night. He is able to do activities of daily living he is able to take care of himself but he is unable to function normally. He is disabled individual. He tried locate lidocaine patch application but it did not help. He tried application of the called but not hot and it did not help his pain. He is taking gabapentin and muscle relaxants for his pain. He never had images of his cervical spine. He had physical therapy 6-7 months ago he continues home exercise program. He is able to flex his forearm and slightly able to extend it. He is able to shrug his left shoulder. He never had any injections. His past medical history significant for severe hypertension. He has a stroke and he lost kidney function approximately at the same time. He was treated by hemodialysis until 2021 when his son donated him his kidney, he is now under kidney transplant in [facility]. He is also diabetic. Review of Systems Const All systems reviewed & are unremarkable except as noted in HPI and below ENT Reports Normal hearing present Neuro Reports Normal hearing present, Denies Abnormal speech present, Denies confusion and Denies Sensory deficit (Neuro) Psych Denies confusion Physical Exam Vital Signs: Last Vital Signs Pulse 85 12/14/24 13:09 Resp 16 12/14/24 13:09 BP 124/58 L 12/14/24 13:09 Pulse Ox 96 12/14/24 13:09 Oxygen Delivery Method Room Air 12/14/24 13:09 BMI result Body Mass Index 37.4 Const General: no acute distress; No confusion Nutritional Appearance: obese morbidly obese Orientation/consciousness: patient oriented x3 and No confusion Eyes General: appearance normal, both eyes and all related structures Pupils: Equal, round and reactive pupils present EOM: EOMs intact bilaterally Neck Other: Flexing head forward does not affect his pain but flexing it backwards aggravated severely. There is tenderness on palpation in paraspinal region on the left of the cervical spine. Axial compression aggravates patient's pain. He is able to shrug his left shoulder up, he is able to squeeze my hand on the left but very weakly. Almost unable to extend the left forearm but able to flex it gently. The strength is grossly compromised. Neck: No full ROM Chest Chest palpation & inspection: normal inspection of the chest Resp Effort & Inspection: normal respiratory effort, able to speak in complete sentences, normal respiratory pattern, no audible wheezes and no cough Cardio Jugular venous distension: no JVD GI Inspection: Yes normal to inspection Neuro General: patient oriented x3, gait normal and No confusion Cranial nerves: Yes CN's II-XII intact bilaterally, Yes Equal, round and reactive pupils present, Yes Normal hearing present and Yes Ability to bilaterally elevate shoulders present Speech: No Abnormal speech present Gait exam (Neuro): Normal gait present Motor exam (neuro): 5/5 motor strength present throughout Sensory Exam: No Sensory deficit (Neuro) Extrem General: No pedal edema Psych Speech and movement: Normal speech and movement present Affect: normal affect Attitude: cooperative Thought process: Normal thought process present Thought content: Normal thought content present Insight: Good insight present (Psych) Judgement: Good judgement present (Psych) Assessment & Plan Assessment & Plan (1) Spondylosis of cervical spine: Code(s): M47.812 - Spondylosis without myelopathy or radiculopathy, cervical region Category: Medical (2) Chronic pain syndrome: Code(s): G89.4 - Chronic pain syndrome Category: Medical (3) 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 48 hours after the procedure patient has no pain in the neck. He reports minor pressure in the neck however no pain. I will schedule him for sprint PNS. I explained to him the procedure briefly and I gave him brochure from [employer]. I also explained to him hygiene limitations after the procedure. His level of pain in very low now I informed him that if the level of the pain will remain low at the time we will schedule procedure to reschedule the procedure. He is kidney transplant recipient and he is diabetic and also he has hemiparesis of the left upper extremity Coding Level of Care Code Est Pt Level 3 (60818) Diagnoses Spondylosis of cervical spine M47.812 Chronic pain syndrome G89.4 Pain after cerebrovascular accident (CVA) I69.398; R52
--- OUTSIDE RECORDS SUMMARY | 2024-12-14 15:54 | XMS_ITS | Encounter Summary ---
Author Organization [facility], Address [address] [address] Phone Care Team Providers Care Yard Engineer Name Role Phone Bernadine Servin Primary Care Provider Encounter Details Date Type Department Care Team (Late st Contact Info) Description 11/28/2021 Documentation Only [facility], [address] [place] [phone] Conor Shultz MD [address] [place] [phone] Social History Tobacco Use Types Packs/Day Years [...] of the [facility] [address] [address] [place]varisto Vidales MD [address] [address] documented as of this encounter Visit Diagnoses Not on filedocumented in this encounter Care Teams Yard Engineer Relationship Specialty Start Date End Date Bernadine Servin [address] [place] [id number] PCP - General Internal Medicine 02/23/23 documented as of this encounter
--- OUTSIDE RECORDS SUMMARY | 2024-12-14 15:54 | XMS_ITS | Encounter Summary ---
Author Organization [facility] Address [address] [facility] [address] [place] [address] Phone Care Team Providers Care De Icer Name Role Phone Bernadine Servin Primary Care Provider [phone] Encounter Details Date Type Department Care Team (Late st Contact Info) Description 08/16/2020 Orders Only [facility] [address] [facility] [address] [place] [phone] Ha Goldberg MD [address] [place] [phone] Stage 5 chronic kidney disease (HCC); Hypertension; [...] [facility] [address] [facility] [address] [place] [address] Evaristo Vidales MD [address] [facility] [address] [place] [address] documented as of this encounter Visit Diagnoses Diagnosis Stage 5 chronic kidney disease (HCC) Hypertension Type 2 diabetes mellitus with diabetic chronic kidney disease (HCC) documented in this encounter Care Teams De Icer Relationship Specialty Start Date End Date Bernadine Servin [address] [place] [id number] PCP - General Internal Medicine 02/23/23 documented as of this encounter
--- OUTSIDE RECORDS SUMMARY | 2024-12-14 15:55 | XMS_ITS | Encounter Summary ---
Author Organization [facility] Address [address] [facility] [address] [place] [address] Phone Care Team Providers Care Denture Contour Wire Specialist Name Role Phone Bernadine Servin Primary Care Provider [phone] Encounter Details Date Type Department Care Team (Late st Contact Info) Description 08/30/2020 Orders Only [facility] [address] [facility] [address] [place] [phone] Ha Goldberg MD [address] [place] [phone] Stage 5 chronic kidney disease (HCC); Hypertension; [...] Visit [facility] [address] [facility] [address] [place] [address] Evaristo Vidales MD [address] [facility] [address] [place] [address] documented as of this encounter Visit Diagnoses Diagnosis Stage 5 chronic kidney disease (HCC) Hypertension Type 2 diabetes mellitus with diabetic chronic kidney disease (HCC) documented in this encounter Care Teams Denture Contour Wire Specialist Relationship Specialty Start Date End Date Bernadine Servin [address] [place] [phone] PCP - General Internal Medicine 02/23/23 documented as of this encounter
--- OUTSIDE RECORDS SUMMARY | 2024-12-14 15:55 | XMS_ITS | Encounter Summary ---
Author Organization [facility] Address [address] [facility] [address] [place] [address] Phone Care Team Providers Care Cross Enterprise Integrator Name Role Phone Bernadine Servin Primary Care Provider [phone] Encounter Details Date Type Department Care Team (Late st Contact Info) Description 07/26/2020 Orders Only [facility] [address] [facility] [address] [place] [phone] Ha Goldberg MD [address] [place] [phone] Stage 5 chronic kidney disease (HCC); Hypertension; [...] and [facility] [address] [facility] [address] [place] [address] Evaristo Vidales MD [address] [facility] [address] [place] [address] documented as of this encounter Visit Diagnoses Diagnosis Stage 5 chronic kidney disease (HCC) Hypertension Type 2 diabetes mellitus with diabetic chronic kidney disease (HCC) documented in this encounter Care Teams Cross Enterprise Integrator Relationship Specialty Start Date End Date Bernadine Servin [address] [place] [phone] PCP - General Internal Medicine 02/23/23 documented as of this encounter
--- OUTSIDE RECORDS SUMMARY | 2024-12-14 15:55 | XMS_ITS | Clinical Summary ---
Author Organization [facility] Address [address] [facility] [address] [place] [address] Phone Care Team Providers Care Manager Operating Name Role Phone Bernadine Servin Primary Care Provider [phone] Allergies No known active allergies Medications atorvastatin (LIPITOR) 80 MG tablet Take 1 tablet (80 mg total) by mouth 1 (one) time each day 30 tablet 11 1 Active Lantus SoloStar 100 UNIT/ML injection INJECT 30 UNITS UNDER THE SKIN EVERY NIGHT AT BEDTIME. GO UP 5 UNITS EVERY WEEK IF FASTING BLOOD SUGHAR ABOVE 120. MAX DOSE 80 UNITS 2 Active HumaLOG KWIKPEN 100 UNIT/ML solution pen-injector 2 Active FREESTYLE LITE test strip 2 Active polyethylene glycol (GLYCOLAX) 17 GM/SCOOP powder Take 17 g by mouth 2 Active Aspirin Low Dose 81 MG EC tablet Take 81 mg by mouth 1 (one) time each day 2 Active Trulicity 4.5 MG/0.5ML solution pen-injector ADMINISTER 4.5 MG UNDER THE SKIN EVERY 7 DAYS 3 Active Dapagliflozin Propanediol 10 MG tablet Take 10 mg by mouth in the morning. 4 Active Tacrolimus ER (Envarsus XR) 0.75 MG tablet sustained-releas e 24 hour Take 1.5 mg by mouth 1 (one) time each day Takes a total of 2.5 mg daily One of the 1 mg and two of the 0.75 mg tabs every morining to make for a total of 2.5 mg every morning 180 tablet 1 5 01/12/20 25 Active Tacrolimus ER (Envarsus XR) 1 MG tablet sustained-releas e 24 hourIndications: History of renal transplant Take 1 mg by mouth 1 (one) time each day Take 1 mg tab along with (2) 0.75 mg tabs for a total dose of 2.5 mg daily. 90 tablet 3 5 Active gabapentin (NEURONTIN) 100 MG capsule Take 100 mg by mouth in the morning and 100 mg in the evening and 100 mg before bedtime. Active Active Problems Problem Noted Date Diagnosed [...] Encounters Date Type Department Care Team Description 12/12/2024 11:00 AM EDT Office Visit [facility] [address] [address] Evaristo Vidales MD Kidney transplant status (Primary Dx); Type 2 diabetes mellitus with diabetic chronic kidney disease, not otherwise specified (HCC); History of renal transplant 10/27/2024 Orders Only [facility] [address] [facility] [address] [place] [phone] Zack Ballesteros MD Kidney transplant status; Other termite technician current drug therapy 10/17/2024 Refill [facility] [address] [phone] [facility] History of renal transplant 10/13/2024 Refill [facility] [address] [facility] [address] [place] [phone] [facility] 10/12/2024 Refill [facility] [address] [facility] [address] [place] [phone] Conor Shultz MD History of renal transplant 10/05/2024 Refill [facility] [address] [facility] [address] [place] [phone] Zack Ballesteros MD History of renal transplant from Last 3 Months Immunizations Immunization Administration Dates Next Due Influenza (IM) Preservative Free 11/22/2009,04/2007 Influenza, MDCK, PF, Quadrivalent 11/10/2017 Influenza, Unspecified 11/14/2023,2022,01/01/2022, 8,11/17/2016,11/19/2015,11/22/2009, 008 Moderna SARS-COV-2 10/08/2021 Pfizer SARS-COV-2 01/07/2021,04/26/2020,04/03/19 21 Pneumococcal Polysaccharide 09/16/2018, 6 Shingrix 09/08/2022 Td 09/16/2018 Td, Unspecified 09/16/2018 Tdap 08/24/2015,11/01/2014,07/04/2007 Family History Medical History Relation Comments Diabetes Father Diabetes Mother Relation Status Comments Father Mother Alive Social History [...] AM EDT Temperature - - Respiratory Rate 16 11/03/2022 9:39 AM EDT Oxygen Saturation 98% 12/12/2024 11:14 AM EDT Inhaled Oxygen Concentration - - Weight 105 kg (231 lb) 12/12/2024 11:14 AM EDT Height 167.6 cm (5' 6 ) 09/02/2022 8:29 AM EDT Body Mass Index 37.28 09/02/2022 8:29 AM EDT Plan of Treatment Upcoming Encounters Date Type Department Care Team (Late st Contact Info) Description 03/13/2025 2:00 PM EST Office Visit [facility] [address] [phone] Evaristo Vidales MD [address] [phone] Health Maintenance Due Date Last Done Comments Hepatitis B Vaccine (1 of 3 - 19+ 3-dose series) 1984 Pneumococcal Vaccine: 50+ Ye ars (3 of 3 - PCV) 09/17/2019 09/16/2018, 11/19/2015 Diabetes: Ophthalmology Exam 03/18/2020 Diabetes: Pedal Pulse Checked 03/18/2020 Diabetes: Sensory Foot Exam 03/18/2020 Diabetes: Visual Foot Exam 03/18/2020 Colonoscopy (Post-Transplant Patient) 11/13/2021 Diabetes: Hemoglobin A1C 12/08/202409/07/2 025, 09/07/2024, 02/11/2024, Additional history exists Pneumococcal Vaccine: Peds ( [...] otherwise specified (HCC) History of renal transplant PROTEIN / CREATININE RATIO, URINE Routine 12/12/2024 [...] NOT USE Routine 12/12/2024 11:50 AM EDT TACROLIMUS LEVEL Routine 10/05/2024 8:58 AM EDT [...] NOT USE Routine 10/05/2024 8:58 AM EDT HEMOGLOBIN A1C Routine 10/05/2023 10:30 AM EDT Kidney transplant status Other termite technician current drug therapy Type 2 diabetes mellitus without complication (HCC) from Last 3 Months or Most Recently Relevant to Health Maintenance Results * (ABNORMAL) Tacrolimus STAT (12/12/2024 11:50 AM EDT) Tacrolimus by Immunoassay 4.9(L) 5.0 - 20.0 ng/mL [facility] Comment: Detection Limit = 0.8 ng/mL Target [...] Immunoassay. 12/12/2024 11:5 0 AM EDT 12/12/2024 us Evaristo Vidales MD LAB BLOOD ORDERABLES Final Re sult [facility] [address] [place] [address] * Microscopic Examination (12/12/2024 11:50 AM EDT) Only the most recent of2 resultswithin the time period is included. WBC, Urine None seen 0 - 5 /hpf [facility] [place] RBC, Urine None seen 0 - 2 /hpf [facility] Squamous Epithelial, Urine 0-10 0 - 10 /hpf [facility] Casts None seen None seen /lpf [facility] Bacteria, Urine None seen None seen/Few [facility] 12/12/2024 11:5 0 AM EDT 12/12/2024 Evaristo Vidales MD LAB MICROBIOLOGY - GENERAL OR DERABLES Final Result Performing Organization Address [facility]/ZIP Co de Phone Number [facility] [place] [address] [place] [address] * Protein, Total, Random Urine w/Creatinine (Protein/Creat Ratio) (12/12/2024 11:50 AM EDT) Only the most recent of2 resultswithin the time period is included. Creatinine, Ur 67.5 Not Estab. mg/dL [facility] [place] Protein, Ur 5.5 Not Estab. mg/dL [facility] Urine Protein/Creatin ine Ratio 81 0 - 200 mg/g creat [facility] Urine Urine specimen obtained by clean catch procedure / Unknown 12/12/2024 11:50 AM EDT 12/12/2024 Evaristo Vidales MD LAB URINE ORDERABLES Final Re sult Performing Organization Address City/[facility]/ZIP Co de Phone Number [facility] [place] [address] [place] [address] * Urine Albumin / Creatinine Ratio (12/12/2024 11:50 AM EDT) Only the most recent of2 resultswithin the time period is included. Albumin, Urine 5.9 Not Estab. ug/mL [facility] Albumin/Creatin ine Ratio 9 0 - 29 mg/g creat [facility] Comment: Normal: 0 - 29 Moderately increased: 30 - 300 Severely increased: >300 Urine Urine specimen obtained by clean catch procedure / Unknown 12/12/2024 11:50 AM EDT 12/12/2024 us Evaristo Vidalse MD LAB URINE ORDERABLES Final Re sult [facility] [address] [place] [address] * (ABNORMAL) Urinalysis with microscopic (12/12/2024 11:50 AM EDT) Only the most recent of2 resultswithin the time period is included. Specific [place], Urine >=1.030(A) 1.005 - 1.030 [facility] pH Urine 6.0 5.0 - 7.5 [facility] Color, Urine Yellow Yellow [facility] Appearance Urine Clear Clear [facility] [phone] WBC Esterase Urine Negative Negative [facility] Protein, Ur Negative Negative/Tra ce [facility] Glucose, Ur 3+(A) Negative [facility] Ketones, Urine Negative Negative [facility] [place] Blood Urine Negative Negative [facility] Bilirubin Urine Negative Negative [facility] [place] Urobilinogen Urine 0.2 0.2 - 1.0 mg/dL [facility] [phone] Nitrite, Urine Negative Negative [facility] Microscopic Examination Comment [facility] Comment:Microscopic follows if indicated. Other Microsc. Observations See below: [facility] Comment:Microscopic was barbra cated and was performed. Urine Urine specimen obtained by clean catch procedure / Unknown 12/12/2024 11:50 AM EDT 12/12/2024 us Evaristo Vidales MD LAB URINE ORDERABLES Final Re sult [facility] [address] [place] [address] * CBC and differential (12/12/2024 11:50 AM EDT) Only the most recent of2 resultswithin the time period is included. WBC 7.1 3.4 - 10.8 x10E3/uL [facility] RBC 4.74 4.14 - 5.80 x10E6/uL [facility] Hemoglobin 14.3 13.0 - 17.7 g/dL [facility] Hematocrit 44.3 37.5 - 51.0 % [facility] MCV 94 79 - 97 fL [facility] MCH 30.2 26.6 - 33.0 pg [facility] MCHC 32.3 31.5 - 35.7 g/dL [facility] RDW 12.2 11.6 - 15.4 % [facility] Platelets 189 150 - 450 x10E3/uL [facility] Neutrophils Relative 73 Not Estab. % [facility] Lymphocytes Relative 18 Not Estab. % [facility] Monocytes 5 Not Estab. % [facility] Eosinophils Relative 3 Not Estab. % [facility] Basophils Relative 1 Not Estab. % [facility] Neutrophils Absolute 5.2 1.4 - 7.0 x10E3/uL [facility] Lymphocytes Absolute 1.3 0.7 - 3.1 x10E3/uL [facility] Monocytes Absolute 0.4 0.1 - 0.9 x10E3/uL [facility] Eosinophils Absolute 0.2 0.0 - 0.4 x10E3/uL [facility] Basophils Absolute 0.0 0.0 - 0.2 x10E3/uL [facility] Immature Granulocytes 0 Not Estab. % [facility] Immature Grans (Absolute) 0.0 0.0 - 0.1 x10E3/uL [facility] Blood Venous blood / Unknown 12/12/2024 11:50 AM EDT 12/12/2024 us Evaristo Vidales MD LAB BLOOD ORDERABLES Final Re sult [facility] [address] [place] [address] * (ABNORMAL) Renal Function Panel (12/12/2024 11:50 AM EDT) Only the most recent of2 resultswithin the time period is included. Glucose 261(H) 70 - 99 mg/dL [facility] BUN 17 6 - 24 mg/dL [facility] Creatinine 1.19 0.76 - 1.27 mg/dL [facility] eGFR CKD-EPI CR 2020 70 >59 mL/min/1.7 3 [facility] BUN/Creatinine Ratio 14 9 - 20 [facility] Sodium 141 134 - 144 mmol/L [facility] Potassium 4.5 3.5 - 5.2 mmol/L [facility] Chloride 106 96 - 106 mmol/L [facility] Bicarbonate (CO2) 17(L) 20 - 29 mmol/L [facility] Calcium 9.4 8.7 - 10.2 mg/dL [facility] Albumin 4.4 3.8 - 4.9 g/dL [facility] Phosphorus 3.0 2.8 - 4.1 mg/dL [facility] Blood Venous blood / Unknown 12/12/2024 11:50 AM EDT 12/12/2024 us Evaristo Vidales MD LAB BLOOD ORDERABLES Final Re sult [facility] [place] [address] [place] [address] * Tacrolimus level (10/05/2024 8:58 AM EDT) [facility] Tacrolimus Lvl 10.2 5.0 - 20.0 ng/mL [facility] Comment: Target steady state trough concentration for [...] Unknown 10/05/2024 8:58 AM EDT 10/05/2024 Narrative [facility] - 10/08/2024 8:05 AM EDT Test(s) [id number] (FK506), Blood was developed and its performance characteristics determined by [facility]. It has not been cleared or approved by the Food and Drug Administration. Evaristo Vidales MD LAB BLOOD ORDERABLES Final Re sult [facility] [address] [place] [address] * (ABNORMAL) Hemoglobin A1c (10/05/2023 10:30 AM EDT) Hemoglobin A1C 9.2(H) 4.8 - 5.6 % [facility] Comment: Prediabetes: 5.7 - 6.4 Diabetes: >6.4 Glycemic control for adults with diabetes: <7.0 Blood specimen (specimen) Venous blood / Unknown 10/05/2023 10:30 AM EDT 10/05/2023 Zack Ballesteros MD LAB BLOOD ORDERABLES Final Result [facility] [address] [place] [phone] from Last 3 Months or Most Recently Relevant to Health Maintenance [place] [address] ([id number]) SOM HERRERA [id number] [facility] Medicare Medicaid [place] [facility] ([id number]) SOM HERRERA [id number] Care Teams Manager Operating Relationship Specialty Start Date End Date Bernadine Servin [address] [place] [address] PCP - General Internal Medicine 02/23/23
--- OUTSIDE RECORDS SUMMARY | 2024-12-14 15:55 | XMS_ITS | Encounter Summary ---
Author Organization [facility] Address [address] [facility] [address] [place] [address] Phone Care Team Providers Care Mercerizing Range Feeder Name Role Phone Bernadine Servin Primary Care Provider [phone] Encounter Details Date Type Department Care Team (Late st Contact Info) Description 07/19/2020 Orders Only [facility] [address] [facility] [address] [place] [phone] Ha Goldberg MD [address] [place] [phone] Stage 5 chronic kidney disease (HCC); Hypertension; [...] of the [facility] [address] [facility] [address] [place] [address] Evaristo Vidales MD [address] [facility] [address] [place] [address] documented as of this encounter Visit Diagnoses Diagnosis Stage 5 chronic kidney disease (HCC) Hypertension Type 2 diabetes mellitus with diabetic chronic kidney disease (HCC) documented in this encounter Care Teams Mercerizing Range Feeder Relationship Specialty Start Date End Date Bernadine Servin [address] [place] [phone] PCP - General Internal Medicine 02/23/23 documented as of this encounter
--- OUTSIDE RECORDS SUMMARY | 2024-12-14 15:55 | XMS_ITS | Encounter Summary ---
Author Organization [facility] Address [address] [facility] [address] [place] [address] Phone Care Team Providers Care Dub Room Engineer Name Role Phone Bernadine Servin Primary Care Provider [phone] Encounter Details Date Type Department Care Team (Late st Contact Info) Description 07/05/2020 Orders Only [facility] [address] [facility] [address] [place] [phone] Ha Goldberg MD [address] [place] [phone] Stage 5 chronic kidney disease (HCC); Hypertension; [...] of the [facility] [address] [facility] [address] [place] [address] Evaristo Vidales MD [address] [facility] [address] [place] [address] documented as of this encounter Visit Diagnoses Diagnosis Stage 5 chronic kidney disease (HCC) Hypertension Type 2 diabetes mellitus with diabetic chronic kidney disease (HCC) documented in this encounter Care Teams Dub Room Engineer Relationship Specialty Start Date End Date Bernadine Servin [address] [place] [phone] PCP - General Internal Medicine 02/23/23 documented as of this encounter
--- OUTSIDE RECORDS SUMMARY | 2024-12-14 15:55 | XMS_ITS | Encounter Summary ---
Author Organization [facility] Address [address] [facility] 200 [place] [address] Phone Care Team Providers Care Flower Arranger Name Role Phone Bernadine Servin Primary Care Provider [phone] Encounter Details Date Type Department Care Team (Late st Contact Info) Description 08/02/2020 Orders Only [facility] [address] [facility] [address] [place] [phone] Ha Goldberg MD [address] [place] [phone] Stage 5 chronic kidney disease (HCC); Hypertension; [...] Visit [facility] [address] [facility] [address] [place] [address] Evaristo Vidales MD [address] [facility] [address] [place] [address] documented as of this encounter Visit Diagnoses Diagnosis Stage 5 chronic kidney disease (HCC) Hypertension Type 2 diabetes mellitus with diabetic chronic kidney disease (HCC) documented in this encounter Care Teams Flower Arranger Relationship Specialty Start Date End Date Bernadine Servin [address] [place] [phone] PCP - General Internal Medicine 02/23/23 documented as of this encounter
--- OUTSIDE RECORDS SUMMARY | 2024-12-14 15:55 | XMS_ITS | Encounter Summary ---
Author Organization [facility] Address [address] [facility] [address] [place] [address] Phone Care Team Providers Care Black Puller Name Role Phone Bernadine Servin Primary Care Provider Encounter Details Date Type Department Care Team (Late st Contact Info) Description 07/12/2020 Orders Only [facility] [address] [facility] [address] [place] [phone] Ha Goldberg MD [address] [place] [phone] Stage 5 chronic kidney disease (HCC); Hypertension; [...] [facility] [address] [facility] [address] [place] [address] Evaristo Vidales MD [address] [facility] [address] [place] [address] documented as of this encounter Visit Diagnoses Diagnosis Stage 5 chronic kidney disease (HCC) Hypertension Type 2 diabetes mellitus with diabetic chronic kidney disease (HCC) documented in this encounter Care Teams Black Puller Relationship Specialty Start Date End Date Bernadine Servin [address] [place] [phone] PCP - General Internal Medicine 02/23/23 documented as of this encounter
--- OUTSIDE RECORDS SUMMARY | 2024-12-14 15:55 | XMS_ITS | Encounter Summary ---
Author Organization [facility] [place] Address [address] [facility] [address] [place] [address] Phone Care Team Providers Care Soda Dialyzer Name Role Phone Bernadine Servin Primary Care Provider [phone] Encounter Details Date Type Department Care Team (Late st Contact Info) Description 05/31/2020 Orders Only [facility] [address] [facility] [address] [place] [phone] Ha Goldberg MD [address] [place] [phone] Stage 5 chronic kidney disease (HCC); Hypertension; [...] Visit [facility] [address] [facility] [address] [place] [address] Evaristo Vidales MD [address] [facility] [address] [place] [address] documented as of this encounter Visit Diagnoses Diagnosis Stage 5 chronic kidney disease (HCC) Hypertension Type 2 diabetes mellitus with diabetic chronic kidney disease (HCC) documented in this encounter Care Teams Soda Dialyzer Relationship Specialty Start Date End Date Bernadine Servin [address] [place] [phone] PCP - General Internal Medicine 02/23/23 documented as of this encounter
--- OUTSIDE RECORDS SUMMARY | 2024-12-14 15:55 | XMS_ITS | Clinical Summary ---
Author Organization [facility] [address] [place] [address] [place] [address] Phone Care Team Providers Care Inventory Planner Name Role Phone PepeBernadine chan Primary Care Provider [phone] Allergies No known active allergies Medications tacrolimus (Envarsus XR) 1 mg extended release tablet Take by mouth. Take 3mg by mouth 024 Active blood-glucose meter,continuous (Dexcom G7 Grades 7 And 8 Teacher) misc 1 Device by Does not apply route See Admin Instructions. Use daily with dexcom g 7 sensors 024 Active blood-glucose sensor (DEXCOM G7 SENSOR MISC) 1 Device by Does not apply route See Admin Instructions. Change sensor every 10 days 024 Active glucagon (Gvoke HypoPen 2-Pack) 1 mg/0.2 mL auto-injector Inject 1 Dose into the skin as needed for Other (low blood sugar). 024 Active acetaminophen (TYLENOL) 325 mg capsule Take 325 mg by mouth 2 times daily as needed for Other (joint pain). 024 Active calcium carbonate/simethi cone (MAALOX ADVANCED ORAL) Take by mouth as needed for Constipation. Active FREESTYLE LANCETS MISC Use to test blood sugar twice a day 021 Active dextrose (glucose) 2 gram tablet,chewable Chew 4 tablets if needed (Low blood sugar). 180 tablet 3 025 Active insulin lispro (HumaLOG KwikPen Insulin) 100 unit/mL injection pen Inject 13-21 Units under the skin 3 (three) times a day before meals. INJECT SUBCUTANEOUSLY 3 TIMES A DAY PER SLIDING SCALE: 100-150=13 U, 151-200=15U, 201- 250=16U, 251-300=17U, 301-350=18U, 351-400=19U, 401-450=21U 45 mL 3 Active dapagliflozin propanediol (FARXIGA) 10 mg tablet Take 1 tab daily 90 tablet 3 Active insulin glargine (Lantus Solostar U-100 Insulin) 100 unit/mL (3 mL) injection pen Inject 68 Units into the skin 2 Times Daily. 45 mL Active aspirin 81 mg EC tablet TAKE 1 TABLET BY MOUTH DAILY 90 tablet 1 Active blood-glucose sensor (Dexcom G7 Sensor) device CHANGE EVERY 10 DAYS 3 each Active tiZANidine (ZANAFLEX) 2 mg capsule Take 1 capsule (2 mg total) by mouth 3 (three) times a day for 14 days. 42 capsule Active blood-glucose meter kit Use daily or as directed for monitoring of diabetes. 1 each 025 2025 Active glucose blood test stripIndications: Type 2 diabetes mellitus with other ophthalmic complication, with long-term current use of insulin ([facility] V24, [facility] V28) Use as instructed to test blood sugar 4 times daily as needed -freestyle brand or which ever is covered by insurance 200 each 025 2025 Active gabapentin (NEURONTIN) 100 mg capsule Take 1 capsule (100 mg total) by mouth 3 (three) times a day. 90 each 025 2025 Active pen needle, diabetic 32 gauge x 5/32 needle USE DIRECTED TO INJECT INSULIN 3 TIMES DAILY 300 each 1 Active dulaglutide (TRULICITY) 0.75 mg/0.5 mL pen injector injection Inject 0.5 mL (0.75 mg total) under the skin every 7 (seven) days. 2 mL 5 Active lidocaine (LIDODERM) 5 % patchIndications: Neck pain,DM (diabetes mellitus), type 2 with neurological complications ([facility] [place], [facility] V28) APPLY 1 PATCH DAILY APPLY TO PAINFUL AREA FOR 12 HOURS PER DAY, REMOVE FOR 12 HOURS 30 patch 1 025 Active atorvastatin (LIPITOR) 80 mg tabletIndications :Hyperlipidemia, unspecified hyperlipidemia type TAKE 1 TABLET(80 MG) BY MOUTH AT BEDTIME 90 each 1 025 Active atorvastatin (LIPITOR) 80 mg tabletIndications :Hyperlipidemia, unspecified hyperlipidemia type Take 1 tablet (80 mg total) by mouth at bedtime. 90 each 1 025 2024 Discontinued Active Problems Problem Noted Date Diagnosed Date Right hand pain 11/07/2023 Subacute osteomyelitis of ri ght hand ([facility] [place], [facility] V28) 11/30/2022 Retained suture 09/29/2022 Hyperlipidemia 01/01/2022 Type 2 diabetes mellitus with obesity 10/15/2021 Overview (11/15/2024): 11/15/24 Regulatory IMO Update ESRD (end stage renal disease) ([facility] V24, [facility] V28) 07/03/2021 Overview (01/04/2024): Transplant recipient 11/06 Tachycardia 07/03/2021 Tobacco dependence 07/03/2021 Hemiparesis of left nondomin ant 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 ([facility] [place], [facility] V28) 09/16/2020 Type 2 diabetes mellitus wit h cataract ([facility] V24, [facility] V28) 11/25/2018 Carpal tunnel syndrome, bilateral 10/26/2018 Epidermal inclusion cyst 10/26/2018 Obesity (BMI 30.0-34.9) 08/30/2017 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 ([facility] V24, [facility] V28) 12/23/2015 Borderline glaucoma with ocular hypertension 08/2015 Cataract, bilateral 12/23/2015 Type 2 diabetes with ophthal ani manifestation ([facility] V24, [facility] V28) 01/24/2014 Fatty liver 01/19/2014 Liver lesion 01/19/2014 Type 2 diabetes mellitus wit h renal manifestations ([facility] V24, [facility] V28) 10/20/2013 Microalbuminuria 10/20/2013 DM (diabetes mellitus), type 2 with neurological complications ([facility] V[facility], [facility] V28) 08/22/2013 Alcohol abuse 08/22/2013 Overview (01/04/2024): 5-6 beers a night during the week; more with hard alcohol on weekends Primary hypertension 04/16/2008 Encounters Date Type Department Care Team Description 12/05/2024 Telephone Internal Medicine - [facility] [address] Bernadine Servin DO 10/02/2024 10:15 AM EDT Office Visit Internal Medicine - [facility] [address] Shima Wick, ENMANUEL Type 2 diabetes mellitus with obesity ([facility] V[facility], [facility] V28) (Primary Dx); Hemiparesis of left nondominant side as late effect of cerebral infarction ([facility] V24, [facility] V28); Neck pain; Chronic left shoulder pain; Renal transplant recipient from Last 3 Months Immunizations Immunization Administration Dates Next Due Influenza Quadravalent, MDCK [...] HISTORICAL HAND SURGERY; COMMENT: tendon nijury COLONOSCOPY 2016 PROCEDURE: HISTORICAL COLONOSCOPY; COMMENT: normal Medical History Medical History Date Comments HTN (hypertension) 04/16/2008 DX:HTN (hyper tension) Borderline glaucoma with ocu lar hypertension 12/23/2015 DX:Borderline glaucoma with ocular hypertension Type 2 diabetes with ophthal ani manifestation (CMS/HCC V24, [facility] V28) 01/24/2014 DX:Type 2 diabetes with opht halmic manifestation (HCC) Cataract, bilateral 12/23/2015 DX:Cataract, bilateral Type 2 diabetes mellitus wit h cataract ([facility] V24, [facility] V28) 11/25/2018 DX:Type 2 diabetes mellitus with cataract (HCC) Alcohol abuse 08/22/2013 DX:Alcohol abuse ; COMMENT: 5-6 beers a night during the week; more with hard alcohol on weekends DM (diabetes mellitus), type 2 with neurological complications ([facility] V24, [facility] V28) 08/22/2013 DX:DM (diabetes mellitus), t ype 2 with neurological complications (HCC) Type 2 diabetes mellitus wit h renal manifestations ([facility] V24, [facility] V28) 10/20/2013 DX:Type 2 diabetes mellitus with renal manifestations (HCC) Epidermal inclusion cyst 10/26/2018 DX:Epid ermal inclusion cyst Fatty liver 01/19/2014 DX:Fatty liver Liver lesion 01/19/2014 DX:Liver lesion Microalbuminuria 10/20/2013 DX:Microalbumin uria 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 ([facility] V24, [facility] V28) 12/23/2015 DX: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 (HCC) Kidney transplant recipient 06/10/2022 DX:K idney transplant recipient DM (diabetes mellitus), type 2 with renal complications ([facility] V24, [facility] V28) 06/10/2022 DX:DM (diabetes mellitus), t ype [...] AM EST Office Visit [facility] - [facility] [address] [place], [place] [phone] Gaurang Marmolejo PA [address] [place] [id number] Health Maintenance Due Date Last Done Comments Diabetes: Annual Foot Exam 1975 Hepatitis A Vaccines (1 of 2 - Risk 2-dose series) 1984 Hepatitis B Vaccines (1 of 3 - 19+ 3-dose series) 1984 RSV Immunization Adult Patients (1 - Risk 50-74 years 1-dose series) 2015 HIV Screening 01/24/2022 Medicare Annual Wellness Visit 01/24/2022 Social Influencers of Health Screening 01/24/2022 Depression Screening 02/16/2024 COVID-19 Vaccine ( season) 2024 02/11/2023, 10/08/2021, 01/07/2021, Additional history exists Diabetes: Blood Sugar Control Test (HGBA1C) 03/10/2025 09/07/2024, 02/11/2024, 10/05/2023, Additional history exists Diabetes: Annual GFR (Glomerular Filtration Rate) 09/11/2025 09/11/2024, 09/07/2024, 10/05/2023 Hypertension/CHF/CAD Annual BMP Blood Test 09/11/2025 09/11/2024, 09/07/2024, 10/05/2023 Diabetes: Annual Retina Eye Exam 10/02/2025 10/02/2024, 10/08/2023 Diabetes: Annual Urine Albumin-Creatinine Ratio (uACR) 12/12/2025 12/12/2024, 10/05/2024, 09/11/2024, Additional history exists Colorectal Cancer Screening: Colonoscopy 05/22/2026 05/22/2016 DTaP,Tdap,and Td Vaccines (5 - Td or Tdap) 09/16/2028 09/16/2018, 08/24/2015, 11/01/2014, Additional history exists Cholesterol Screening (Lipid Panel) 09/11/2029 09/11/2024, 09/07/2024, 12/01/2023, Additional history exists Hepatitis C Screening Completed 11/26/2018 Zoster Vaccines [...] (still deficit in L MF/RF/LF) 03/09/24 MET Alf Goals: Indep final HEP including AE/DME needs assessment and recommendations 03/09/24 MET Maximize L sldr AAROM to at least 45 ER for ease of reaching for ADL objects/ donning jacket: 03/09/24: Not met (difficult isolate but achieves approx 35) Procedures Procedure Name Priority Date/Time Associated Diagnosis Comments COMPREHENSIVE METABOLIC PANEL Routine 09/07/2024 2:37 PM EDT DM (diabetes mellitus), type 2 with neurological complications (CMS/HCC V24, CMS/HCC V28) LIPID PANEL WITH REFLEX TO DIRECT LDL Routine 09/07/2024 2:37 PM EDT DM (diabetes mellitus), type 2 with neurological complications (CMS/HCC V24, CMS/HCC V28) MICROALBUMIN CREATININE URINE RATIO Routine 09/07/2024 11:46 AM EDT DM (diabetes mellitus), type 2 with neurological complications (CMS/HCC V24, CMS/HCC V28) HEMOGLOBIN A1C Routine 09/07/2024 11:45 AM EDT DM (diabetes mellitus), type 2 with neurological complications (CMS/HCC V24, CMS/HCC V28) HM DIABETES EYE EXAM Routine 10/08/2023 HEPATITIS C SCREENING Routine 11/26/2018 COLONOSCOPY Routine 05/22/2016 from Last 3 Months or Most Recently Relevant to Health Maintenance Results * Lipid panel with reflex to direct LDL (09/07/2024 2:37 PM EDT) Cholesterol 83 0 - 200 mg/dL LAB CHEMISTRY METHOD 09/07/2024 7:55 PM EDT [facility] Triglycerides 95 0 - 150 mg/dL LAB CHEMISTRY METHOD 09/07/2024 7:55 PM EDT [facility] HDL 43 >=40 mg/dL LAB CHEMISTRY METHOD 09/07/2024 7:55 PM EDT [facility] LDL Calculated 21 0 - 100 mg/dL LAB CHEMISTRY METHOD 09/07/2024 7:55 PM EDT [facility] VLDL Cholesterol Mark 19 mg/dL LAB CHEMISTRY METHOD 09/07/2024 7:55 PM EDT [facility] Non HDL Chol. (LDL+VLDL) 40 <145 mg/dL LAB CHEMISTRY METHOD 09/07/2024 7:55 PM EDT [facility] Chol/HDL Ratio 1.9 0.0 - 4.4 LAB CHEMISTRY METHOD 09/07/2024 7:55 PM EDT [facility] Blood Venous blood specimen / Unknown Venipuncture / Unknown 09/07/2024 2:37 PM EDT 09/07/2024 2:37 PM EDT us Gaurang KEARNS LAB BLOOD ORDERABLES Fi nal Result [facility] [address] [place] [address], [place] [phone] * (ABNORMAL) Comprehensive metabolic panel (09/07/2024 2:37 PM EDT) Sodium 138 133 - 145 mmol/L LAB CHEMISTRY METHOD 09/07/2024 7:55 PM [facility] Potassium 4.2 3.5 - 5.5 mmol/L LAB CHEMISTRY METHOD 09/07/2024 7:55 PM [facility] Chloride 107 96 - 110 mmol/L LAB CHEMISTRY METHOD 09/07/2024 7:55 PM [facility] CO2 26 21 - 32 mmol/L LAB CHEMISTRY METHOD 09/07/2024 7:55 PM [facility] Anion Gap 5 3 - 11 LAB CHEMISTRY METHOD 09/07/2024 7:55 PM [facility] Glucose 110(H) 70 - 100 mg/dL LAB CHEMISTRY METHOD 09/07/2024 7:55 PM [facility] BUN 16 5 - 25 mg/dL LAB CHEMISTRY METHOD 09/07/2024 7:55 PM [facility] Creatinine 1.22 0.70 - 1.30 mg/dL LAB CHEMISTRY METHOD 09/07/2024 7:55 PM [facility] eGFR 68 >=60 mL/min/1. 73m2 LAB CHEMISTRY METHOD 09/07/2024 7:55 PM [facility] Comment:Calculation based on the Chronic Kidney Disease Epidemiology Collaboration (CKD-EPI) equation refit without adjustment for race. BUN/Creatinine Ratio 13.1 LAB CHEMISTRY METHOD 09/07/2024 7:55 PM [facility] Calcium 9.4 8.5 - 10.5 mg/dL LAB CHEMISTRY METHOD 09/07/2024 7:55 PM [facility] AST (SGOT) 24 10 - 42 unit/L LAB CHEMISTRY METHOD 09/07/2024 7:55 PM [facility] ALT (SGPT) 50 10 - 60 unit/L LAB CHEMISTRY METHOD 09/07/2024 7:55 PM [facility] Alkaline Phosphatase 135(H) 42 - 121 unit/L LAB CHEMISTRY METHOD 09/07/2024 7:55 PM EDT [facility] Total Protein 7.5 6.0 - 8.0 g/dL LAB CHEMISTRY METHOD 09/07/2024 7:55 PM EDT [facility] Albumin 4.0 3.2 - 5.0 g/dL LAB CHEMISTRY METHOD 09/07/2024 7:55 PM EDT [facility] Total Bilirubin 1.4 0.0 - 1.4 mg/dL LAB CHEMISTRY METHOD 09/07/2024 7:55 PM EDT [facility] Blood Venous blood specimen / Unknown Venipuncture / Unknown 09/07/2024 2:37 PM EDT 09/07/2024 2:37 PM EDT Gaurang KEARNS LAB BLOOD ORDERABLES Fi nal Result [facility] [address] [place] [address], [place] [phone] * (ABNORMAL) Microalbumin creatinine urine ratio (09/07/2024 11:46 AM EDT) Creatinine, Urine 96.0 mg/dL LAB CHEMISTRY METHOD 09/07/2024 5:52 PM EDT [facility] Microalb, Ur 30.4(H) 0.0 - 29.0 mg/L LAB CHEMISTRY METHOD 09/07/2024 5:52 PM EDT [facility] Microalb/Crea t Ratio 32(H) <30 mg/g creat LAB CHEMISTRY METHOD 09/07/2024 5:52 PM EDT [facility] Urine Urine specimen obtained by clean catch procedure / Unknown 09/07/2024 11:46 AM EDT 09/07/2024 11:46 AM EDT us Gaurang KEARNS LAB URINE ORDERABLES Fi nal Result Performing Organization Address [facility]/ZIP Co de Phone Number [facility] [address] [place] [address], * (ABNORMAL) Hemoglobin A1c (09/07/2024 11:45 AM EDT) [facility] Hemoglobin A1C 7.6(H) <6.5 % LAB CHEMISTRY METHOD 09/07/2024 10:10 PM EDT [facility] Mean Bld Glu Estim. 171 mg/dL LAB CHEMISTRY METHOD 09/07/2024 10:10 PM EDT [facility] Blood Venous blood specimen / Unknown Venipuncture / Unknown 09/07/2024 11:45 AM EDT 09/07/2024 11:46 AM EDT Gaurang KEARNS LAB BLOOD ORDERABLES Fi nal Result Performing Organization Address [facility] Co de Phone Number [facility] [address] [place] [address], * Diabetes Eye Exam (10/08/2023) [facility] Diabetes: Annual Retina Eye Exam abstracted Historical Provider HEALTH MAINTENANCE Final Result * Hepatitis C Screening (11/26/2018) [facility] Hepatitis C Screening abstracted Historical Provider HEALTH MAINTENANCE Final Result * Colonoscopy (05/22/2016) [facility] Colonoscopy no interpretation , abstracted Anatomical Region Laterality Modality Other Historical Provider HEALTH MAINTENANCE Final Result from Last 3 Months or Most Recently Relevant to Health Maintenance Insurance [employer] Member Subscriber Plan / Payer (Ef fective 2023-Present) Name:JANINA MONTAGUE Relation to Subscriber:Self Name:Janina Montague Payer ID:[id number] Group ID:[id number] Type:Not on file Address: [facility] [address] [id number] Care Teams Inventory Planner Relationship Specialty Start Date End Date Bernadine Servin DO [address] [facility] [place] [address] PCP - General 11/09/22
--- OUTSIDE RECORDS SUMMARY | 2024-12-14 15:55 | XMS_ITS | Encounter Summary ---
Author Organization [facility] Address [address] [facility] [address] [place] [address] Phone Care Team Providers Care Completions Manager Name Role Phone Bernadine Servin Primary Care Provider Encounter Details Date Type Department Care Team (Late st Contact Info) Description 08/09/2020 Orders Only [facility] [address] [facility] [address] [place] [phone] Ha Goldberg MD [address] [place] [phone] Stage 5 chronic kidney disease (HCC); Hypertension; [...] [facility] [address] [facility] [address] [place] [address] Evaristo Vidales MD [address] [facility] [address] [place] [address] documented as of this encounter Visit Diagnoses Diagnosis Stage 5 chronic kidney disease (HCC) Hypertension Type 2 diabetes mellitus with diabetic chronic kidney disease (HCC) documented in this encounter Care Teams Completions Manager Relationship Specialty Start Date End Date Bernadine Servin [address] [place] [id number] PCP - General Internal Medicine 02/23/23 documented as of this encounter
--- OUTSIDE RECORDS SUMMARY | 2024-12-14 15:55 | XMS_ITS | Data Portability ---
Author Organization [facility] [employer] [facility] Address [address] [place] [address] Care Team Providers Care Physical Anthropologist Name Role Phone HIM CCA OTHER Assessment [...] /min 86 /min 98 % 98 % 257597. 424 g 97.6 [degF] 148/78 mm[Hg] Not Available [facility] - production 4 14:09:09 Social History None recorded. Functional Status None recorded. Mental Status None recorded. Family History Nothing Reported. Medical History No medical history recorded. Past Encounters Encounter ID Performer Location Encounter Start Date Encounter Closed Date Diagnosis/Indication Diagnosis SNOMED-CT Code Diagnosis ICD10 Code Diagnosis IMO Codes Diagnosis Note [id number] Katelyn Ramirez MD Main - [facility] [address] [place] [phone] 07/28/2023 14:08:55 07/29/2023 09:59:49 Diabetic foot ulcer 587937589 E13.621 Evaluation in the field was performed by my packer operator automatic colleague, as noted above, I provided real-time direction and supervisio n for this visit. 58yo M with PMHx T2DM, CVA p/w wound on plantar surface L foot which he believes is from AFO brace, required hospitaliz ation for abx 07/03 for superinfec tion. Called today to provide wound care while awaiting arrangemen ts for VNA. On packer operator automatic eval VS unremarkab le, exam with ulcer on ball of L foot without drainage or surroundin g erythema. Pt has not been seen by podiatry and is using regular shoes. Rug Dry Room Attendant cleansed wound and dressed w/ triple abx [...] Padron Member ID Guarantor Name 07/28/2023 1 [facility] - DOS ON OR AFTER 2022 - DUAL ELIGIBLE - LONG-TERM OPTIONS AND ONE CARE (MEDICARE REPLACEMENT/ADV ANTAGE - HMO) Rashawn Montague [id number] Rashawn Montague Notes Date Note Type Note Provider Name and Address Organization Details Recorded Time 07/28/2023 text/html HPI: HX of CVA, L sided weakness. ................. ................. ................. ................. ................. ................. ................. ................. ..... CRC Nurse Triage Notes (Melanie Sampson): Comments: Per provider: Azucenar was d/c'd from [facility] on 07/03 for a wound to L foot from wearing his AFO. Mbr has a hx of CVA, L sided weakness. Mbr had a referral to [facility] wound clinic but d/t a 2 [...] ................. ................. ................. ................. ................. ................. ..... Rug Dry Room Attendant Note From Denilson Camarillo: Pt co wound [...] and Pt advised to follow up with mortgage advisor. [facility] [place] care team for referral to mortgage advisor. Pt education on signs indicating the ER. Pt left bacitracin packets. Pt advised to apply to wound and use bandaging at night. Pt advised to keep wound clean and rest. ................. ................. ................. ................. ................. ................. ................. ................. ..... Disposition: Fulfilled Katelyn Ramirez MD [address] [facility],[address], [place], [phone], [employer] 07/28/2023 15:10:55
--- OUTSIDE RECORDS SUMMARY | 2024-12-14 15:55 | XMS_ITS | Encounter Summary ---
Author Organization [facility] Address [address] [facility] [address] [place] [address] Phone Care Team Providers Care Mammographer Name Role Phone Bernadine Servin Primary Care Provider [phone] Encounter Details Date Type Department Care Team (Late st Contact Info) Description 08/23/2020 Orders Only [facility] [address] [facility] [address] [place] [phone] Ha Goldberg MD [address] [place] [phone] Stage 5 chronic kidney disease (HCC); Hypertension; [...] [facility] [address] [facility] [address] [place] [address] Evaristo Vidales MD [address] [facility] [address] [place] [address] documented as of this encounter Visit Diagnoses Diagnosis Stage 5 chronic kidney disease (HCC) Hypertension Type 2 diabetes mellitus with diabetic chronic kidney disease (HCC) documented in this encounter Care Teams Mammographer Relationship Specialty Start Date End Date Bernadine Servin [address] [place] [phone] PCP - General Internal Medicine 02/23/23 documented as of this encounter
--- OUTSIDE RECORDS SUMMARY | 2024-12-14 15:55 | XMS_ITS | Encounter Summary ---
Author Organization [facility] Address 100 [facility] 200 [place] [address] Phone Care Team Providers Care Staff Field Engineer Name Role Phone Bernadine Servin Primary Care Provider Encounter Details Date Type Department Care Team (Late st Contact Info) Description 09/06/2020 Orders Only [facility] 100 [facility] 200 [place] [phone] Ha Goldberg MD [address] [place] [phone] Stage 5 chronic kidney disease (HCC); Hypertension; [...] Visit [facility] [address] [facility] 204 [place] [address] Evaristo Vidales MD 4[address] [facility] 204 [place] [address] documented as of this encounter Visit Diagnoses Diagnosis Stage 5 chronic kidney disease (HCC) Hypertension Type 2 diabetes mellitus with diabetic chronic kidney disease (HCC) documented in this encounter Care Teams Staff Field Engineer Relationship Specialty Start Date End Date Bernadine Servin [address] [place] [address] PCP - General Internal Medicine 02/23/23 documented as of this encounter
--- OUTSIDE RECORDS SUMMARY | 2024-12-14 15:55 | XMS_ITS | Encounter Summary ---
Author Organization [facility] Address 100 [facility] 200 [place] [address] Phone Care Team Providers Care Truck Loader And Unloader Name Role Phone Bernadine Servin Primary Care Provider [phone] Encounter Details Date Type Department Care Team (Late st Contact Info) Description 06/07/2020 Orders Only [facility] 100 [facility] 200 [place] [phone] Ha Goldberg MD [address] [place] [phone] Stage 5 chronic kidney disease (HCC); Hypertension; [...] Visit [facility] [address] [facility] 204 [place] [address] Evaristo Vidales MD [address] [facility] 204 [place] [address] documented as of this encounter Visit Diagnoses Diagnosis Stage 5 chronic kidney disease (HCC) Hypertension Type 2 diabetes mellitus with diabetic chronic kidney disease (HCC) documented in this encounter Care Teams Truck Loader And Unloader Relationship Specialty Start Date End Date Bernadine Servin [address] [place] [address] PCP - General Internal Medicine 02/23/23 documented as of this encounter
--- OUTSIDE RECORDS SUMMARY | 2024-12-14 15:55 | XMS_ITS | Clinical Summary ---
Author Organization [facility] Address [address] [place] [address] Care Team Providers Care Odd Job Worker Name Role Phone Estuardo Faria MD Primary Care Provider [phone] Allergies No known active allergies Medications Medication Sig Dispensed Refills Start Date End Date Status ammonium lactate (AMLACTIN) 12 % cream 12 %. 0 09/03/2009 Act doroteo Blood Glucose Monitoring Suppl ([email or web address] FRE[place]ITE) w/Device KIT Use daily 0 04/18/2015 Active ergocalciferol (VITAMIN D2) capsule 61919 units TAKE 1 CAPSULE PO EVERY WEEK [...] age to complete this topic Care Teams Odd Job Worker Relationship Specialty Start Date End Date Estuardo Faria MD PCP - General Internal Medicine 09/19/18
--- OUTSIDE RECORDS SUMMARY | 2024-12-14 15:55 | XMS_ITS | Encounter Summary ---
Author Organization [facility] Address [address] [facility] [address] [place] [address] Phone Care Team Providers Care Family Dinner Service Specialist Name Role Phone Bernadine Servin Primary Care Provider [phone] Encounter Details Date Type Department Care Team (Late st Contact Info) Description 06/28/2020 Orders Only [facility] [address] [place] [phone] Ha Goldberg MD [address] [place] [phone] Stage 5 chronic kidney disease (HCC); Hypertension; [...] Visit [facility] [address] [facility] 204 [place] [address] Evaristo Vidales MD [address] [facility] 204 [place] [address] documented as of this encounter Visit Diagnoses Diagnosis Stage 5 chronic kidney disease (HCC) Hypertension Type 2 diabetes mellitus with diabetic chronic kidney disease (HCC) documented in this encounter Care Teams Family Dinner Service Specialist Relationship Specialty Start Date End Date Bernadine Servin [address] [place] [address] PCP - General Internal Medicine 02/23/23 documented as of this encounter
--- OUTSIDE RECORDS SUMMARY | 2024-12-14 15:55 | XMS_ITS | Encounter Summary ---
Author Organization [facility] Address 100 [facility] 200 [place] [address] Phone Care Team Providers Care Sales Professional Bilingual Name Role Phone Bernadine Servin Primary Care Provider [phone] Encounter Details Date Type Department Care Team (Late st Contact Info) Description 06/14/2020 Orders Only [facility] 100 [facility] 200 [place] [phone] Ha Goldberg MD [address] [place] [phone] Stage 5 chronic kidney disease (HCC); Hypertension; [...] [facility] [address] [facility] 204 [place] [address] Evaristo Vidales MD [address] [facility] 204 [place] [address] documented as of this encounter Visit Diagnoses Diagnosis Stage 5 chronic kidney disease (HCC) Hypertension Type 2 diabetes mellitus with diabetic chronic kidney disease (HCC) documented in this encounter Care Teams Sales Professional Bilingual Relationship Specialty Start Date End Date Bernadine Servin [address] [place] [address] PCP - General Internal Medicine 02/23/23 documented as of this encounter
--- OUTSIDE RECORDS SUMMARY | 2024-12-14 15:55 | XMS_ITS | Clinical Summary ---
Author Organization [facility] Address [address] [place] [address] Care Team Providers Care Recruiting And Selection Consultant Name Role Phone Estuardo Faria MD Primary Care Provider [phone] Social History Tobacco Use Types Packs/Day Years [...] series) 2040 Insurance MEDICAID OUT OF STATE [facility] [address] [place] [address] MEDICARE PART A & B Care Teams Recruiting And Selection Consultant Relationship Specialty Start Date End Date Estuardo Faria MD PCP - General 05/04/22
--- OUTSIDE RECORDS SUMMARY | 2024-12-14 15:55 | XMS_ITS | Encounter Summary ---
Author Organization [facility] Address 100 [facility] 200 [place] [address] Phone Care Team Providers Care Bilingual Recruiter Name Role Phone Bernadine Servin Primary Care Provider [phone] Encounter Details Date Type Department Care Team (Late st Contact Info) Description 06/21/2020 Orders Only [facility] 100 [facility] 200 [place] [phone] Ha Goldberg MD [address] [place] [phone] Stage 5 chronic kidney disease (HCC); Hypertension; [...] of the [facility] [address] [facility] 204 [place] [address] Evaristo Vidales MD 140[address] [facility] 204 [place] [address] documented as of this encounter Visit Diagnoses Diagnosis Stage 5 chronic kidney disease (HCC) Hypertension Type 2 diabetes mellitus with diabetic chronic kidney disease (HCC) documented in this encounter Care Teams Bilingual Recruiter Relationship Specialty Start Date End Date Bernadine Servin [address] [place] [address] PCP - General Internal Medicine 02/23/23 documented as of this encounter
== END 2024-12-14 13:47 | disposition home or self-care (01) ==
LOC: HO.PMC 13:03
PROVIDERS: PCP Internal Medicine; Visit Provider Anesthesiology
DX: M47.812 Spondylosis without myelopathy or radiculopathy, cervical region (principal); G89.4 Chronic pain syndrome; I69.398 Other sequelae of cerebral infarction
CPT/HCPCS: 99213

== ENCOUNTER → 2024-12-14 13:02 | Outpatient (BNVA) | payer OTHER, SELFPAY | PROVIDERS: PCP Internal Medicine; Visit Provider Anesthesiology | DX: G89.4 Chronic pain syndrome (principal); M47.812 Spondylosis without myelopathy or radiculopathy, cervical region; I69.398 Other sequelae of cerebral infarction | CPT/HCPCS: 99212 ==

== ENCOUNTER 2025-01-16 06:51 | Outpatient (REF) | payer OTHER, SELFPAY ==
--- NOTE | ~2025-01-16 | FL_ITS ---
EXAMINATION: FLUOROSCOPY GUIDANCE FOR NEEDLE PLACEMENT CLINICAL INFORMATION: M47.812 - Spondylosis without myelopathy or radiculopathy, cervical region COMPARISON: Previous cervical spine x-ray September 2024 and fluoroscopy exam November 2024 TECHNIQUE: Fluoroscopic guidance for pain management procedure. FINDINGS: 3 submitted images demonstrate instrument and wire projecting over the left side of the cervical spine. See procedure note for detailed findings. FLUOROSCOPY TIME: 15 seconds DOSE AREA PRODUCT: 428 mGy-cm2 FL/FL guidance in treatment room IMPRESSION: Fluoroscopy guidance for pain management procedure. Electronically signed by: Radha Peacock MD 01/16/2025 01:09 PM [facility]
--- OUTSIDE RECORDS SUMMARY | 2025-01-16 06:53 | XMS_ITS | Encounter Summary ---
Author Organization [facility], Address [address] [address] Phone Care Team Providers Care Tub Rider Name Role Phone Bernadine Servin Primary Care Provider [phone] Encounter Details Date Type Department Care Team (Late st Contact Info) Description 11/28/2021 Documentation Only [facility], [address] [facility] [place] [phone] Conor Shultz MD [address] [facility] [place] [place] [phone] Social History Tobacco Use Types Packs/Day Years [...] and [facility] the [facility] [address] [address] Evaristo Vidales MD [address] [address] documented as of this encounter Visit Diagnoses Not on filedocumented in this encounter Care Teams Tub Rider Relationship Specialty Start Date End Date Bernadnie Servin [address] [place] [address] PCP - General Internal Medicine 02/23/23 documented as of this encounter
--- OUTSIDE RECORDS SUMMARY | 2025-01-16 06:53 | XMS_ITS | Encounter Summary ---
Author Organization [facility] Address 100 [facility] 200 [place] [address] Phone Care Team Providers Care Molder Vacuum Name Role Phone Bernadine Servin Primary Care Provider [phone] Encounter Details Date Type Department Care Team (Late st Contact Info) Description 08/30/2020 Orders Only [facility] 100 [facility] 200 [place] [phone] Ha Goldberg MD [address] [place] [phone] Stage 5 chronic kidney disease (HCC); Hypertension; [...] and [facility] [address] [facility] 204 [place] [address] Evaristo Vidales MD 9557 [facility] 204 [place] [address] documented as of this encounter Visit Diagnoses Diagnosis Stage 5 chronic kidney disease (HCC) Hypertension Type 2 diabetes mellitus with diabetic chronic kidney disease (HCC) documented in this encounter Care Teams Molder Vacuum Relationship Specialty Start Date End Date Bernadine Servin [address] [place] [address] PCP - General Internal Medicine 02/23/23 documented as of this encounter
--- OUTSIDE RECORDS SUMMARY | 2025-01-16 06:53 | XMS_ITS | Encounter Summary ---
Author Organization [facility] Address 100 [facility] 200 [place] [address] Phone Care Team Providers Care Ship Propeller Finisher Name Role Phone Bernadine Servin Primary Care Provider [phone] Encounter Details Date Type Department Care Team (Late st Contact Info) Description 07/26/2020 Orders Only [facility] 100 [facility] 200 [place] [phone] Ha Goldberg MD [address] [place] [phone] Stage 5 chronic kidney disease (HCC); Hypertension; [...] Visit [facility] 17[address] [facility] 204 [place] [address] Evaristo Vidales MD 1725 [facility] 204 [place] [address] documented as of this encounter Visit Diagnoses Diagnosis Stage 5 chronic kidney disease (HCC) Hypertension Type 2 diabetes mellitus with diabetic chronic kidney disease (HCC) documented in this encounter Care Teams Ship Propeller Finisher Relationship Specialty Start Date End Date Bernadine Servin [address] [place] [address] PCP - General Internal Medicine 02/23/23 documented as of this encounter
--- OUTSIDE RECORDS SUMMARY | 2025-01-16 06:53 | XMS_ITS | Encounter Summary ---
Author Organization [facility] Address 100 [facility] 200 [place] [address] Phone Care Team Providers Care Print Binding Worker Name Role Phone Bernadine Servin Primary Care Provider [phone] Encounter Details Date Type Department Care Team (Late st Contact Info) Description 06/28/2020 Orders Only [facility] 100 [facility] 200 [place] [phone] Ha Goldberg MD [address] [place] [phone] Stage 5 chronic kidney disease (HCC); Hypertension; [...] Visit [facility] [address] [facility] 204 [place] [address] Evaristo Vidales MD 2306 [facility] 204 [place] [address] documented as of this encounter Visit Diagnoses Diagnosis Stage 5 chronic kidney disease (HCC) Hypertension Type 2 diabetes mellitus with diabetic chronic kidney disease (HCC) documented in this encounter Care Teams Print Binding Worker Relationship Specialty Start Date End Date Bernadine Servin [address] [place] [address] PCP - General Internal Medicine 02/23/23 documented as of this encounter
--- OUTSIDE RECORDS SUMMARY | 2025-01-16 06:53 | XMS_ITS | Encounter Summary ---
Author Organization [facility] Address 100 [facility] 200 [place] [address] Phone Care Team Providers Care Oven Roaster Name Role Phone Bernadine Servin Primary Care Provider [phone] Encounter Details Date Type Department Care Team (Late st Contact Info) Description 06/07/2020 Orders Only [facility] 100 [facility] 200 [place] [phone] Ha Goldberg MD [address] [place] [phone] Stage 5 chronic kidney disease (HCC); Hypertension; [...] Visit [facility] [address] [facility] 204 [place] [address] Evaristo Vidales MD 5154 [facility] 204 [place] [address] documented as of this encounter Visit Diagnoses Diagnosis Stage 5 chronic kidney disease (HCC) Hypertension Type 2 diabetes mellitus with diabetic chronic kidney disease (HCC) documented in this encounter Care Teams Oven Roaster Relationship Specialty Start Date End Date Bernadine Servin [address] [place] [phone] PCP - General Internal Medicine 02/23/23 documented as of this encounter
--- OUTSIDE RECORDS SUMMARY | 2025-01-16 06:53 | XMS_ITS | Encounter Summary ---
Author Organization [facility] Address 100 [facility] 200 [place] [address] Phone Care Team Providers Care Service Representative Name Role Phone Bernadine Servin Primary Care Provider [phone] Encounter Details Date Type Department Care Team (Late st Contact Info) Description 06/14/2020 Orders Only [facility] 100 [facility] 200 [place] [phone] Ha Goldberg MD [address] [place] [phone] Stage 5 chronic kidney disease (HCC); Hypertension; [...] Visit [facility] 25[address] [facility] 204 [place] [address] Evaristo Vidales MD 3186 [facility] 204 [place] [address] documented as of this encounter Visit Diagnoses Diagnosis Stage 5 chronic kidney disease (HCC) Hypertension Type 2 diabetes mellitus with diabetic chronic kidney disease (HCC) documented in this encounter Care Teams Service Representative Relationship Specialty Start Date End Date Bernadine Servin [address] [place] [address] PCP - General Internal Medicine 02/23/23 documented as of this encounter
--- OUTSIDE RECORDS SUMMARY | 2025-01-16 06:53 | XMS_ITS | Encounter Summary ---
Author Organization [facility] Address 100 [facility] 200 [place] [address] Phone Care Team Providers Care Refractory Manager Name Role Phone Bernadine Servin Primary Care Provider [phone] Encounter Details Date Type Department Care Team (Late st Contact Info) Description 06/21/2020 Orders Only [facility] 100 [facility] 200 [place] [phone] Ha Goldberg MD [address] [place] [phone] Stage 5 chronic kidney disease (HCC); Hypertension; [...] Associates of the [facility] [address] [facility] 204 [place] [address] Evaristo Vidales MD [address] [facility] 204 [place] [address] documented as of this encounter Visit Diagnoses Diagnosis Stage 5 chronic kidney disease (HCC) Hypertension Type 2 diabetes mellitus with diabetic chronic kidney disease (HCC) documented in this encounter Care Teams Refractory Manager Relationship Specialty Start Date End Date Bernadine Servin [address] [place] [phone] PCP - General Internal Medicine 02/23/23 documented as of this encounter
--- OUTSIDE RECORDS SUMMARY | 2025-01-16 06:53 | XMS_ITS | Clinical Summary ---
Author Organization [facility] Address [address] [facility] [address] [place] [address] Phone Care Team Providers Care Home Health Nurse Licensed Practical Name Role Phone Bernadine Servin Primary Care Provider [phone] Allergies No known active allergies Medications atorvastatin [...] morning. 4 Active Tacrolimus ER (Envarsus XR) 1 MG tablet sustained-releas e 24 hourIndications: History of renal transplant Take 1 mg by mouth 1 (one) time each day Take 1 mg tab along with (2) 0.75 mg tabs for a total dose of 2.5 mg daily. 90 tablet 3 Active gabapentin (NEURONTIN) 100 MG capsule Take 100 mg by mouth in the morning and 100 mg in the evening and 100 mg before bedtime. Active Tacrolimus ER (Envarsus XR) 0.75 MG tablet sustained-releas e 24 hour Take 1.5 mg by mouth 1 (one) time each day Takes a total of 2.5 mg daily One of the 1 mg and two of the 0.75 mg tabs every morining to make for a total of 2.5 mg every morning 180 tablet 1 5 01/12/20 25 Active Problems Problem Noted Date Diagnosed Date [...] Encounters Date Type Department Care Team Description 12/25/2024 Telephone [facility] [address] [place] [phone] Shawna Reddy [place] 12/12/2024 11:00 AM EDT Office Visit [facility] [address] [facility] [address] [place] [phone] Evaristo Vidales MD Kidney transplant status (Primary Dx); Type 2 diabetes mellitus with diabetic chronic kidney disease, not otherwise specified (HCC); History of renal transplant 10/27/2024 Orders Only [facility] [address] [facility] [address] [place] [phone] Zack Ballesteros MD Kidney transplant status; Other longterm current drug therapy 10/17/2024 Refill [facility] [address] [facility] [address] [place] [phone] Cherie Pradhan History of renal transplant from Last 3 Months Immunizations Immunization Administration Dates Next Due Influenza (IM) Preservative Free 11/22/2009,1204/2007 Influenza, MDCK, PF, Quadrivalent 11/10/2017 Influenza, Unspecified [...] [facility] [address] [phone] Evaristo Vidales MD [address] [phone] Health Maintenance Due Date Last Done Comments [...] NOT USE Routine 12/12/2024 11:50 AM EDT HEMOGLOBIN A1C Routine 10/05/2023 10:30 AM EDT Kidney transplant status Other longterm current drug therapy Type 2 diabetes mellitus without complication (HCC) from Last 3 Months or Most Recently Relevant to Health Maintenance Results * (ABNORMAL) Tacrolimus STAT (12/12/2024 11:50 AM EDT) [facility] Tacrolimus by Immunoassay 4.9(L) 5.0 - 20.0 ng/mL [facility] Comment: Detection Limit = 0.8 ng/mL Target [...] ORDERABLES Final Re sult Performing Organization Address City/[facility]/ZIP Co de Phone Number [facility] [address] [place] [phone] * Microscopic Examination (12/12/2024 11:50 AM EDT) WBC, Urine None seen 0 - 5 /hpf [facility] RBC, Urine None seen 0 - 2 /hpf [facility] Squamous Epithelial, Urine 0-10 0 - 10 /hpf [facility] Casts None seen None seen /lpf [facility] Bacteria, Urine None seen None seen/Few [facility] 12/12/2024 11:5 0 AM EDT 12/12/2024 Evaristo Vidales MD LAB MICROBIOLOGY - GENERAL OR DERABLES Final Result Performing Organization Address City/[facility]/ZIP Co de Phone Number [facility] [address] [place] [phone] * Protein, Total, Random Urine w/Creatinine (Protein/Creat Ratio) (12/12/2024 11:50 AM EDT) Creatinine, Ur 67.5 Not Estab. mg/dL [facility] Protein, Ur 5.5 Not Estab. mg/dL [facility] Urine Protein/Creatin ine Ratio 81 0 - 200 mg/g creat [facility] Urine Urine specimen obtained by clean catch procedure / Unknown 12/12/2024 11:50 AM EDT 12/12/2024 Evaristo Vidales MD LAB URINE ORDERABLES Final Re sult Performing Organization Address [facility]/ZIP Co de Phone Number [facility] [address] [place] [address] * Urine Albumin / Creatinine Ratio (12/12/2024 11:50 AM EDT) Albumin, Urine 5.9 Not Estab. ug/mL [facility] Albumin/Creatin ine Ratio 9 0 - 29 mg/g creat [facility] Comment: Normal: 0 - 29 Moderately increased: 30 - 300 Severely increased: >300 Urine Urine specimen obtained by clean catch procedure / Unknown 12/12/2024 11:50 AM EDT 12/12/2024 Evaristo Vidales MD LAB URINE ORDERABLES Final Re sult Performing Organization Address [facility] de Phone Number [facility] [address] [place] [address] * (ABNORMAL) Urinalysis with microscopic (12/12/2024 11:50 AM EDT) Pathologist [facility] Specific [place], Urine >=1.030(A) 1.005 - 1.030 [facility] pH Urine 6.0 5.0 - 7.5 [facility] Color, Urine Yellow Yellow [facility] [phone] Appearance Urine Clear Clear [facility] [phone] WBC Esterase Urine Negative Negative [facility] Protein, Ur Negative Negative/Tra ce [facility] Glucose, Ur 3+(A) Negative [facility] Ketones, Urine Negative Negative [facility] Blood Urine Negative Negative [facility] Bilirubin Urine Negative Negative [facility] [phone] Urobilinogen Urine 0.2 0.2 - 1.0 mg/dL [facility] Nitrite, Urine Negative Negative [facility] Microscopic Examination Comment [facility] [phone] Comment:Microscopic follows if indicated. Other Microsc. Observations See below: [facility] [phone] Comment:Microscopic was barbra cated and was performed. Urine Urine specimen obtained by clean catch procedure / Unknown 12/12/2024 11:50 AM EDT 12/12/2024 us Evaristo Vidales MD LAB URINE ORDERABLES Final Re sult [facility] [address] [place] [address] * CBC and differential (12/12/2024 11:50 AM EDT) WBC 7.1 3.4 - 10.8 x10E3/uL [facility] RBC 4.74 4.14 - 5.80 x10E6/uL [facility] Hemoglobin 14.3 13.0 - 17.7 g/dL [facility] Hematocrit 44.3 37.5 - 51.0 % [facility] MCV 94 79 - 97 fL [facility] MCH 30.2 26.6 - 33.0 pg [facility] MCHC 32.3 31.5 - 35.7 g/dL [facility] RDW 12.2 11.6 - 15.4 % [facility] Platelets 189 150 - 450 x10E3/uL [facility] Neutrophils Relative 73 Not Estab. % [facility] Lymphocytes Relative 18 Not Estab. % [facility] Monocytes 5 Not Estab. % [facility] Eosinophils Relative 3 Not Estab. % [facility] Basophils Relative 1 Not Estab. % [facility] Neutrophils Absolute 5.2 1.4 - 7.0 x10E3/uL [facility] Lymphocytes Absolute 1.3 0.7 - 3.1 x10E3/uL [facility] Monocytes Absolute 0.4 0.1 - 0.9 x10E3/uL [facility] Eosinophils Absolute 0.2 0.0 - 0.4 x10E3/uL [facility] Basophils Absolute 0.0 0.0 - 0.2 x10E3/uL [facility] Immature Granulocytes 0 Not Estab. % [facility] Immature Grans (Absolute) 0.0 0.0 - 0.1 x10E3/uL [facility] Blood Venous blood / Unknown 12/12/2024 11:50 AM EDT 12/12/2024 us Evaristo Vidales MD LAB BLOOD ORDERABLES Final Re sult [facility] [address] [place] [address] * (ABNORMAL) Renal Function Panel (12/12/2024 11:50 AM EDT) Glucose 261(H) 70 - 99 mg/dL [facility] BUN 17 6 - 24 mg/dL [facility] Creatinine 1.19 0.76 - 1.27 mg/dL [facility] eGFR CKD-EPI CR 2020 70 >59 mL/min/1.7 3 [facility] BUN/Creatinine Ratio 14 9 - 20 [facility] Sodium 141 134 - 144 mmol/L [facility] Potassium 4.5 3.5 - 5.2 mmol/L [facility] Chloride 106 96 - 106 mmol/L [facility] Bicarbonate (CO2) 17(L) 20 - 29 mmol/L [facility] Calcium 9.4 8.7 - 10.2 mg/dL [facility] Albumin 4.4 3.8 - 4.9 g/dL [facility] Phosphorus 3.0 2.8 - 4.1 mg/dL [facility] Blood Venous blood / Unknown 12/12/2024 11:50 AM EDT 12/12/2024 Evaristo Vidales MD LAB BLOOD ORDERABLES Final Re sult [facility] [address] [place] [address] * (ABNORMAL) Hemoglobin A1c (10/05/2023 10:30 AM EDT) Hemoglobin A1C 9.2(H) 4.8 - 5.6 % [facility] Comment: Prediabetes: 5.7 - 6.4 Diabetes: >6.4 Glycemic control for adults with diabetes: <7.0 Blood specimen (specimen) Venous blood / Unknown 10/05/2023 10:30 AM EDT 10/05/2023 Zack Ballesteros MD LAB BLOOD ORDERABLES Final Result [facility] [address] [place] [phone] from Last 3 Months or Most Recently Relevant to Health Maintenance Insurance [facility] ([id number]) [place] [id number] [facility] Medicare Medicaid [place] [facility] ([id number]) Care Teams Home Health Nurse Licensed Practical Relationship Specialty Start Date End Date Bernadine Servin [address] [place] [phone] PCP - General Internal Medicine 02/23/23
--- OUTSIDE RECORDS SUMMARY | 2025-01-16 06:53 | XMS_ITS | Encounter Summary ---
Author Organization [facility] Address [address] [facility] [address] [place] [address] Phone Care Team Providers Care Customer Retention Representative Name Role Phone Bernadine Servin Primary Care Provider [phone] Encounter Details Date Type Department Care Team (Late st Contact Info) Description 07/12/2020 Orders Only [facility] [address] [facility] [address] [place] [phone] Ha Goldberg MD [address] [place] [phone] Stage 5 chronic kidney disease (HCC); Hypertension; [...] [facility] the [facility] [address] [facility] [address] [place] [address] Evaristo Vidales MD [address] [facility] [address] [place] [address] documented as of this encounter Visit Diagnoses Diagnosis Stage 5 chronic kidney disease (HCC) Hypertension Type 2 diabetes mellitus with diabetic chronic kidney disease (HCC) documented in this encounter Care Teams Customer Retention Representative Relationship Specialty Start Date End Date Bernadine Servin [address] [place] [phone] PCP - General Internal Medicine 02/23/23 documented as of this encounter
--- OUTSIDE RECORDS SUMMARY | 2025-01-16 06:53 | XMS_ITS | Clinical Summary ---
Author Organization [facility] [address] [place] [address] [place] [address] Phone Care Team Providers Care Paint And Table Edger Name Role Phone Sylvia Tuttle MD Primary Care Provider [phone] Allergies No known active allergies Medications tacrolimus (Envarsus XR) 1 mg extended release tablet Take by mouth. Take 3mg by mouth 024 Active blood-glucose meter,continuous (Dexcom G7 Screening Unit Registered Nurse) misc 1 Device by Does not apply [...] DAILY 90 tablet 1 Active blood-glucose sensor (Cerephexcom G7 Sensor) device CHANGE EVERY 10 DAYS [...] complication, with long-term current use of insulin ([facility] V24, [facility] V28) Use as instructed to test blood sugar 4 times daily as needed -freestyle brand or which ever is covered by insurance 200 each 025 2025 Active gabapentin (NEURONTIN) 100 mg capsule Take 1 capsule (100 mg total) by mouth 3 (three) times a day. 90 each 025 2025 Active pen needle, diabetic 32 gauge x needle USE DIRECTED TO INJECT INSULIN 3 TIMES DAILY 300 each Active lidocaine (LIDODERM) 5 % patchIndications: Neck pain,DM (diabetes mellitus), type 2 with neurological complications ([facility] V24, [facility] V28) APPLY 1 PATCH DAILY APPLY TO PAINFUL AREA FOR 12 HOURS PER DAY, REMOVE FOR 12 HOURS 30 patch 1 Active atorvastatin (LIPITOR) 80 mg tabletIndications :Hyperlipidemia, unspecified hyperlipidemia type TAKE 1 TABLET(80 MG) BY MOUTH AT BEDTIME 90 each 1 025 Active dulaglutide (TRULICITY) 1.5 mg/0.5 mL pen injector injectionIndicati ons:DM (diabetes mellitus), type 2 with neurological complications ([facility] V24, [facility] V28) Inject 0.5 mL (1.5 mg total) under the skin every 7 (seven) days. 2 mL 025 Active dulaglutide (TRULICITY) 0.75 mg/0.5 mL pen injector injection Inject 0.5 mL (0.75 mg total) under the skin every 7 (seven) days. 2 mL 5 025 2024 Discontinued Active Problems Problem Noted Date Diagnosed Date Severe obesity (BMI 35.0-39. 9) with comorbidity ([facility] V24, [facility] V28) 01/08/2025 Right hand pain 11/07/2023 Subacute osteomyelitis of ri ght hand ([facility], [facility] V28) 11/30/2022 Retained suture 09/29/2022 Hyperlipidemia 01/01/2022 Type 2 diabetes mellitus with obesity 10/15/2021 Overview (11/15/2024): 11/15/24 Regulatory IMO Update ESRD (end stage renal disease) ([facility] V24, [facility] V28) 07/03/2021 Overview (01/04/2024): Transplant recipient 11/06 Tachycardia 07/03/2021 Tobacco dependence 07/03/2021 Hemiparesis of left nondomin ant 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 ([facility] V24, [facility] V28) 09/16/2020 Type 2 diabetes mellitus wit h cataract ([facility], [facility] V28) 11/25/2018 Carpal tunnel syndrome, bilateral 10/26/2018 Epidermal inclusion cyst 10/26/2018 Obesity (BMI 30.0-34.9) 08/30/2017 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 ([facility] V24, [facility] V28) 12/23/2015 Borderline glaucoma with ocular hypertension 08/2015 Cataract, bilateral 12/23/2015 Type 2 diabetes with ophthal ani manifestation ([facility], [facility] V28) 01/24/2014 Fatty liver 01/19/2014 Liver lesion 01/19/2014 Type 2 diabetes mellitus wit h renal manifestations ([facility], [facility] V28) 10/20/2013 Microalbuminuria 10/20/2013 DM (diabetes mellitus), type 2 with neurological complications ([facility] V[facility], [facility] V28) 08/22/2013 Alcohol abuse 08/22/2013 Overview (01/04/2024): 5-6 beers a night during the week; more with hard alcohol on weekends Primary hypertension 04/16/2008 Encounters Date Type Department Care Team Description 01/09/2025 Results Follow-Up Internal Medicine - [address] [phone] Gaurang Marmolejo PA 01/08/2025 10:20 AM EST Lab Draw Station [address] Type 2 diabetes mellitus with obesity; Hyperlipidemia, unspecified hyperlipidemia type 01/08/2025 10:00 AM EST Office Visit Internal Medicine [address] [phone] Gaurang Marmolejo PA ESRD (end stage renal disease) ([facility] V24, [facility] V28) (Primary Dx); Hyperlipidemia, unspecified hyperlipidemia type; Type 2 diabetes mellitus with obesity; Severe obesity (BMI 35.0-39.9) with comorbidity ([facility] V[facility], [facility] V28); Primary hypertension 12/05/2024 Telephone Internal Medicine [address] [phone] Bernadine Servin DO from Last 3 Months Immunizations Immunization Administration [...] Type 2 diabetes with ophthal ani manifestation ([facility]/HCC V24, [facility]/HCC V28) 01/24/2014 DX:Type 2 diabetes with opht halmic manifestation (HCC) Cataract, bilateral 12/23/2015 DX:Cataract, bilateral Type 2 diabetes mellitus wit h cataract ([facility]/HCC V24, [facility]/HCC V28) 11/25/2018 DX:Type 2 diabetes mellitus with cataract (HCC) Alcohol abuse 08/22/2013 DX:Alcohol abuse ; COMMENT: 5-6 beers a night during the week; more with hard alcohol on weekends DM (diabetes mellitus), type 2 with neurological complications (CMS/HCC V24, CMS/HCC V28) 08/22/2013 DX:DM (diabetes mellitus), t ype 2 with neurological complications (HCC) Type 2 diabetes mellitus wit h renal manifestations (CMS/HCC V24, [facility]/HCC V28) 10/20/2013 DX:Type 2 diabetes mellitus with renal manifestations (HCC) Epidermal inclusion cyst 10/26/2018 DX:Epid ermal inclusion cyst Fatty liver 01/19/2014 DX:Fatty liver Liver lesion 01/19/2014 DX:Liver lesion Microalbuminuria 10/20/2013 DX:Microalbumin uria 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 (CMS/HCC V24, CMS/HCC V28) 12/23/2015 DX: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 (HCC) Kidney transplant recipient 06/10/2022 DX:K idney transplant recipient DM (diabetes mellitus), type 2 with renal complications ([facility]/HCC V24, [facility]/HCC V28) 06/10/2022 DX:DM (diabetes mellitus), t [...] Sign Reading Time Taken Comments Blood Pressure 121/68 01/08/2025 10:04 AM EST Pulse 74 01/08/2025 10:04 AM EST Temperature 36.6 C (97.9 F) 08/24/2024 5:50 PM EDT Respiratory Rate 16 09/07/2024 10:40 AM EDT Oxygen Saturation 97% 04/25/2024 1:56 PM EDT Inhaled Oxygen Concentration - - Weight 107 kg (236 lb) 01/08/2025 10:04 AM EST Height 167.6 cm (5' 6 ) 10/02/2024 10:07 AM EDT Body Mass Index 38.09 10/02/2024 10:07 AM EDT Plan of Treatment Upcoming Encounters Date Type Department Care Team (Late st Contact Info) Description 07/10/2025 9:45 AM EDT Office Visit Internal [facility] - [facility] [address] [place] [address] Gaurang Marmolejo PA [address] [place] [address] Health Maintenance Due Date Last Done Comments Diabetes: Annual Foot Exam 1975 Hepatitis A Vaccines (1 of 2 - Risk 2-dose series) 1984 Hepatitis B Vaccines (1 of 3 - 19+ 3-dose series) 1984 RSV Immunization Adult Patients (1 - Risk 50-74 years 1-dose series) 2015 HIV Screening 01/24/2022 Medicare Annual Wellness Visit 01/24/2022 Social Influencers of Health Screening 01/24/2022 COVID-19 Vaccine ( season) 2024 02/11/2023, 10/08/2021, 01/07/2021, Additional history exists Diabetes: Blood Sugar Control Test (HGBA1C) 07/08/2025 01/08/2025, 09/07/2024, 02/11/2024, Additional history exists Diabetes: Annual GFR (Glomerular [...] Completed 09/25/2024, , 10/08/2023, Additional history exists Depression Screening Completed 01/08/2025 HIB Vaccines Aged Out No longer eligi [...] OT General On track(2024 12:48 PM EST) No Ritu Madrigal, OT Note: Short Term Goals Indep initial HEP 01/26 MET and ongoing Resting pain Lupper quadrant not exceed 4/10 01/26 MET Partic in estim to promote digit ext in order to actively release ADL items from L hand (ie toothbrush) 01/26 MET AND ONGOING to promote further ext in all digits (still deficit in L MF/RF/LF) 03/09/24 MET Armored Car Messenger Goals: Indep final HEP including AE/DME needs assessment and recommendations 03/09/24 MET Maximize L sldr AAROM to at least 45 ER for ease of reaching for ADL objects/ donning jacket: 03/09/24: Not met (difficult isolate but achieves approx 35) Procedures Procedure Name Priority Date/Time Associated Diagnosis Comments HEPATIC FUNCTION PANEL Routine 01/08/2025 10:30 AM EST Hyperlipidemia, unspecified hyperlipidemia type HEMOGLOBIN A1C Routine 01/08/2025 10:30 AM EST Type 2 diabetes mellitus with obesity COMPREHENSIVE METABOLIC PANEL Routine 09/07/2024 2:37 PM [...] with neurological complications (CMS/HCC V24, CMS/HCC V28) DIABETES EYE EXAM Routine 10/08/2023 HEPATITIS C SCREENING Routine 11/26/2018 COLONOSCOPY Routine 05/22/2016 from Last 3 Months or Most Recently Relevant to Health Maintenance Results * (ABNORMAL) Hemoglobin A1c (01/08/2025 10:30 AM EST) Hemoglobin A1C 8.0(H) <6.5 % LAB CHEMISTRY METHOD 01/08/2025 8:[address] [facility] Mean Bld Glu Estim. 183 mg/dL LAB CHEMISTRY METHOD 01/08/2025 8:[address] [facility] Blood Venous blood specimen / Unknown Venipuncture / Unknown 01/08/2025 10:30 AM EST 01/08/2025 10:30 AM EST us Gaurang KEARNS LAB BLOOD ORDERABLES Fi nal Result [facility] [address] [place] [address], * (ABNORMAL) Hepatic function panel (01/08/2025 10:30 AM EST) Total Protein 6.6 6.0 - 8.0 g/dL 01/08/2025 4:22 PM [facility] Albumin 3.8 3.2 - 5.0 g/dL 01/08/2025 4:22 PM [facility] Total Bilirubin 1.5(H) 0.0 - 1.4 mg/dL 01/08/2025 4:22 PM [facility] Bilirubin, Direct 0.6(H) 0.0 - 0.3 mg/dL 01/08/2025 4:22 PM [facility] Bilirubin, Indirect 0.9 0.0 - 1.1 mg/dL 01/08/2025 4:22 PM [facility] ALT (SGPT) 43 10 - 60 unit/L 01/08/2025 4:22 PM [facility] AST (SGOT) 26 10 - 42 unit/L 01/08/2025 4:22 PM [facility] Alkaline Phosphatase 131(H) 42 - 121 unit/L 01/08/2025 4:22 PM [facility] Blood Venous blood specimen / Unknown Venipuncture / Unknown 01/08/2025 10:30 AM EST 01/08/2025 10:30 AM EST Gaurang KEARNS LAB BLOOD ORDERABLES Fi nal Result [facility] [address] [place] [address], * Lipid panel with reflex to direct LDL (09/07/2024 2:37 PM EDT) Cholesterol 83 0 - 200 mg/dL LAB CHEMISTRY METHOD 09/07/2024 7:[address] [facility] Triglycerides 95 0 - 150 mg/dL LAB CHEMISTRY METHOD 09/07/2024 7:[address] [facility] HDL 43 >=40 mg/dL LAB CHEMISTRY METHOD 09/07/2024 7:[address] [facility] LDL Calculated 21 0 - 100 mg/dL LAB CHEMISTRY METHOD 09/07/2024 7:[address] [facility] VLDL Cholesterol Mark 19 mg/dL LAB CHEMISTRY METHOD 09/07/2024 7:[address] [facility] Non HDL Chol. (LDL+VLDL) 40 <145 mg/dL LAB CHEMISTRY METHOD 09/07/2024 7:[address] [facility] Chol/HDL Ratio 1.9 0.0 - 4.4 LAB CHEMISTRY METHOD 09/07/2024 7:[address] [facility] Blood Venous blood specimen / Unknown Venipuncture / Unknown 09/07/2024 2:37 PM EDT 09/07/2024 2:37 PM EDT Gaurang KEARNS LAB BLOOD ORDERABLES Fi nal Result [facility] [address] [place] [address], * (ABNORMAL) Comprehensive metabolic panel (09/07/2024 2:37 [...] 11 LAB CHEMISTRY METHOD [facility] Glucose 110(H) 70 - 100 mg/dL [...] METHOD 09/07/2024 7:55 PM [facility] Total Protein 7.5 6.0 - 8.0 g/dL LAB CHEMISTRY METHOD 09/07/2024 7:55 PM [facility] Albumin 4.0 3.2 - 5.0 g/dL LAB CHEMISTRY METHOD 09/07/2024 7:55 PM [facility] Total Bilirubin 1.4 0.0 - 1.4 mg/dL LAB CHEMISTRY METHOD 09/07/2024 7:55 PM [facility] Blood Venous blood specimen / Unknown Venipuncture / Unknown 09/07/2024 2:37 PM EDT 09/07/2024 2:37 PM EDT Gaurang KEARNS LAB BLOOD ORDERABLES Fi nal Result Performing Organization Address [facility]/ZIP Co de Phone Number [facility] [address] [place] [address], [place] [phone] * (ABNORMAL) Microalbumin creatinine urine ratio (09/07/2024 11:46 AM EDT) [facility] Creatinine, Urine 96.0 mg/dL LAB CHEMISTRY METHOD 09/07/2024 5:[address] [facility] Microalb, Ur 30.4(H) 0.0 - 29.0 mg/L LAB CHEMISTRY METHOD 09/07/2024 5:[address] [facility] Microalb/Crea t Ratio 32(H) <30 mg/g creat LAB CHEMISTRY METHOD 09/07/2024 5:[address] [facility] Urine Urine specimen obtained by clean catch procedure / Unknown 09/07/2024 11:46 AM EDT 09/07/2024 11:46 AM EDT Gaurang KEARNS LAB URINE ORDERABLES Fi nal Result Performing Organization Address City/[facility]/ZIP Co de Phone Number [facility] [address] [place] [address], [place] [phone] * Diabetes Eye Exam (10/08/2023) [facility] Diabetes: Annual Retina Eye Exam abstracted Historical Provider HEALTH MAINTENANCE Final Result * Hepatitis C Screening (11/26/2018) Pathologist [facility] Hepatitis C Screening abstracted Historical Provider HEALTH MAINTENANCE Final Result * Colonoscopy (05/22/2016) Pathologist [facility] Colonoscopy no interpretation , abstracted Anatomical Region Laterality Modality Other us Historical Provider HEALTH MAINTENANCE Final Result from Last 3 Months or Most Recently Relevant to Health Maintenance Insurance [employer] Member Subscriber Plan / Payer (Ef fective 2023-Present) Name:JANINA MONTAGUE Relation to Subscriber:Self Name:Janina Montague Payer ID:[id number] Group ID:[id number] Type:Not on file Address: [place] [address] [address] [id number] Care Teams Paint And Table Edger Relationship Specialty Start Date End Date Sylvai Tuttle MD [address] [place] [address] PCP - General Internal Medicine 01/08/25
--- OUTSIDE RECORDS SUMMARY | 2025-01-16 06:53 | XMS_ITS | Encounter Summary ---
Author Organization [facility] Address [address] [facility] [address] [place] [address] Phone Care Team Providers Care Restaurant Area Manager Name Role Phone Bernadine Servin Primary Care Provider [phone] Encounter Details Date Type Department Care Team (Late st Contact Info) Description 08/16/2020 Orders Only [facility] [address] [facility] [address] [place] [phone] Ha Goldberg MD [address] [place] [phone] Stage 5 chronic kidney disease (HCC); Hypertension; [...] Visit [facility] [address] [facility] [address] [place] [address] Evaristo Vidales MD [address] [facility] [address] [place] [address] documented as of this encounter Visit Diagnoses Diagnosis Stage 5 chronic kidney disease (HCC) Hypertension Type 2 diabetes mellitus with diabetic chronic kidney disease (HCC) documented in this encounter Care Teams Restaurant Area Manager Relationship Specialty Start Date End Date Bernadine Servin [address] [place] [phone] PCP - General Internal Medicine 02/23/23 documented as of this encounter
--- OUTSIDE RECORDS SUMMARY | 2025-01-16 06:53 | XMS_ITS | Encounter Summary ---
Author Organization [facility] Address [address] [facility] [address] [place] [address] Phone Care Team Providers Care Bank Teller Name Role Phone Bernadine Servin Primary Care Provider Encounter Details Date Type Department Care Team (Late st Contact Info) Description 07/05/2020 Orders Only [facility] [address] [facility] [address] [place] [phone] Ha Goldberg MD [address] [place] [phone] Stage 5 chronic kidney disease (HCC); Hypertension; [...] the [facility] [address] [facility] [address] [place] [address] Evaristo Vidales MD [address] [facility] [address] [place] [address] documented as of this encounter Visit Diagnoses Diagnosis Stage 5 chronic kidney disease (HCC) Hypertension Type 2 diabetes mellitus with diabetic chronic kidney disease (HCC) documented in this encounter Care Teams Bank Teller Relationship Specialty Start Date End Date Bernadine Servin [address] [place] [phone] PCP - General Internal Medicine 02/23/23 documented as of this encounter
--- OUTSIDE RECORDS SUMMARY | 2025-01-16 06:53 | XMS_ITS | Encounter Summary ---
Author Organization [facility] Address [address] [facility] [address] [place] [address] Phone Care Team Providers Care Anesthesiologist And Critical Care Name Role Phone Bernadine Servin Primary Care Provider [phone] Encounter Details Date Type Department Care Team (Late st Contact Info) Description 08/23/2020 Orders Only [facility] [address] [facility] [address] [place] [phone] Ha Goldberg MD [address] [place] [phone] Stage 5 chronic kidney disease (HCC); Hypertension; [...] Visit [facility] [address] [facility] [address] [place] [address] Evaristo Vidales MD [address] [facility] [address] [place] [address] documented as of this encounter Visit Diagnoses Diagnosis Stage 5 chronic kidney disease (HCC) Hypertension Type 2 diabetes mellitus with diabetic chronic kidney disease (HCC) documented in this encounter Care Teams Anesthesiologist And Critical Care Relationship Specialty Start Date End Date Bernadine Servin [address] [place] [phone] PCP - General Internal Medicine 02/23/23 documented as of this encounter
--- OUTSIDE RECORDS SUMMARY | 2025-01-16 06:53 | XMS_ITS | Encounter Summary ---
Author Organization [facility] Address [address] [facility] 200 [place] [address] Phone Care Team Providers Care Tire Finisher Name Role Phone Bernadine Servin Primary Care Provider [phone] Encounter Details Date Type Department Care Team (Late st Contact Info) Description 05/31/2020 Orders Only [facility] [address] [facility] [address] [place] [phone] Ha Goldberg MD [address] [place] [phone] Stage 5 chronic kidney disease (HCC); Hypertension; [...] Visit [facility] [address] [facility] [address] [place] [address] Evaristo Vidales MD [address] [facility] [address] [place] [address] documented as of this encounter Visit Diagnoses Diagnosis Stage 5 chronic kidney disease (HCC) Hypertension Type 2 diabetes mellitus with diabetic chronic kidney disease (HCC) documented in this encounter Care Teams Tire Finisher Relationship Specialty Start Date End Date Bernadine Servin [address] [place] [phone] PCP - General Internal Medicine 02/23/23 documented as of this encounter
--- OUTSIDE RECORDS SUMMARY | 2025-01-16 06:53 | XMS_ITS | Encounter Summary ---
Author Organization [facility] Address [address] [facility] 200 [place] [address] Phone Care Team Providers Care Locker Room Clerk Name Role Phone Bernadine Servin Primary Care Provider [phone] Encounter Details Date Type Department Care Team (Late st Contact Info) Description 07/19/2020 Orders Only [facility] [address] [facility] [address] [place] [phone] Ha Goldberg MD [address] [place] [phone] Stage 5 chronic kidney disease (HCC); Hypertension; [...] Visit [facility] [address] [facility] 204 [place] [address] Evaristo Vidales MD [address] [facility] [address] [place] [address] documented as of this encounter Visit Diagnoses Diagnosis Stage 5 chronic kidney disease (HCC) Hypertension Type 2 diabetes mellitus with diabetic chronic kidney disease (HCC) documented in this encounter Care Teams Locker Room Clerk Relationship Specialty Start Date End Date Bernadine Servin [address] [place] [phone] PCP - General Internal Medicine 02/23/23 documented as of this encounter
--- OUTSIDE RECORDS SUMMARY | 2025-01-16 06:53 | XMS_ITS | Data Portability ---
Author Organization [email or web address] [facility], [facility] Address [address] [place] [address] Care Team Providers Care Manager Of Compensation Name Role Phone HIM CCA OTHER Assessment [...] Recorded Respiratory rate Heart rate Oxygen saturation Body weight Body temperature Systolic And Diastolic Provider Name and Address Organization Details Last Updated DateTime 4 16 /min 86 /min 98 % 549471. 424 g 97.6 [degF] 148/78 mm[Hg] Not Available [facility] - production 4 14:09:09 Social History None recorded. Functional Status None recorded. Mental Status None recorded. Family History Nothing Reported. Medical History No medical history recorded. Past Encounters Encounter ID Performer Location Encounter Start Date Encounter Closed Date Diagnosis/Indication Diagnosis SNOMED-CT Code Diagnosis ICD10 Code Diagnosis IMO Codes Diagnosis Note [id number] Katelyn Ramirez MD Main - [facility] [address] [place] [phone] 07/28/2023 14:08:55 07/29/2023 09:59:49 Diabetic foot ulcer 370254132 E13.621 Evaluation in the field was performed by my analytics analyst colleague, as noted above, I provided real-time direction and supervisio n for this visit. 58yo M with PMHx T2DM, CVA p/w wound on plantar surface L foot which he believes is from AFO brace, required hospitaliz ation for abx 07/03 for superinfec tion. Called today to provide wound care while awaiting arrangemen ts for VNA. On analytics analyst eval VS unremarkab le, exam with ulcer on ball of L foot without drainage or surroundin g erythema. Pt has not been seen by podiatry and is using regular shoes. Abrasive Coating Machine Operator cleansed wound and dressed w/ triple abx [...] Padron Member ID Guarantor Name 07/28/2023 1 [facility] - DOS ON OR AFTER 2022 - DUAL ELIGIBLE - ALF OPTIONS AND ONE CARE (MEDICARE REPLACEMENT/ADV ANTAGE - HMO) aRshawn Montague [id number] Rashawn Montague Notes Date Note Type Note Provider Name and Address Organization Details Recorded Time 07/28/2023 text/html HPI: HX of CVA, L sided weakness. ................. ................. ................. ................. ................. ................. ................. ................. ..... CRC Nurse Triage Notes (Melanie Sampson): Comments: Per provider: Azucenar was d/c'd from [facility] on 07/03 for a wound to L foot from wearing his AFO. Mbr has a hx of CVA, L sided weakness. Mbr had a referral to [facility] wound clinic but d/t a 2 month wait list mbr opted not to go. PCP office is working on getting mbr VNA services for wound care. Azucenar had a f/u PCP apt after d/c from hospital. Mbr is unable to assess wound, wound has not been assessed recently. Could medic please assess/clean wound as needed as mbr is waiting for PCP to find VNA to provide wound care. Thank you ................. ................. ................. ................. ................. ................. ................. ................. ..... Abrasive Coating Machine Operator Note From Denilson Camarillo: Pt co wound [...] and Pt advised to follow up with field rep. [facility] with contact care team for referral to field rep. Pt education on signs indicating the ER. Pt left bacitracin packets. Pt advised to apply to wound and use bandaging at night. Pt advised to keep wound clean and rest. ................. ................. ................. ................. ................. ................. ................. ................. ..... Disposition: Fulfilled Katelyn Ramirez MD [address] [facility],[address], [place], [address], [employer] - xiao qu wu youAUREA 07/28/2023 15:10:55
--- OUTSIDE RECORDS SUMMARY | 2025-01-16 06:53 | XMS_ITS | Encounter Summary ---
Author Organization [facility] Address [address] [facility] [address] [place] [address] Phone Care Team Providers Care Metallurgical Engineering Technician Name Role Phone Bernadine Servin Primary Care Provider [phone] Encounter Details Date Type Department Care Team (Late st Contact Info) Description 09/06/2020 Orders Only [facility] [address] [facility] [address] [place] [phone] Ha Goldberg MD [address] [place] [phone] Stage 5 chronic kidney disease (HCC); Hypertension; [...] Visit [facility] [address] [facility] [address] [place] [address] Evaristo Vidales MD [address] [facility] [address] [place] [address] documented as of this encounter Visit Diagnoses Diagnosis Stage 5 chronic kidney disease (HCC) Hypertension Type 2 diabetes mellitus with diabetic chronic kidney disease (HCC) documented in this encounter Care Teams Metallurgical Engineering Technician Relationship Specialty Start Date End Date Bernadine Servin [address] [place] [id number] PCP - General Internal Medicine 02/23/23 documented as of this encounter
--- OUTSIDE RECORDS SUMMARY | 2025-01-16 06:54 | XMS_ITS | Clinical Summary ---
Author Organization [employer] [facility] Address [address] [place] [address] Care Team Providers Care Bevel Face Stoner And Polisher Name Role Phone Estuardo Faria MD Primary Care Provider [phone] Allergies No known active allergies Medications Medication Sig Dispensed Refills Start Date End Date Status ammonium lactate (AMLACTIN) 12 % cream 12 %. 0 09/03/2009 Act doroteo Blood Glucose Monitoring Suppl ([place] FREEDOM LITE) w/Device KIT Use daily 0 04/18/2015 Active ergocalciferol (VITAMIN D2) capsule 72616 units TAKE 1 CAPSULE PO EVERY WEEK [...] age to complete this topic Care Teams Bevel Face Stoner And Polisher Relationship Specialty Start Date End Date Estuardo Faria MD PCP - General Internal Medicine 09/19/18
--- OUTSIDE RECORDS SUMMARY | 2025-01-16 06:54 | XMS_ITS | Encounter Summary ---
Author Organization [facility] Address [address] [place] [address] Care Team Providers Care Fire Sprinkler Designer Name Role Phone Sylvia Tuttle MD Primary Care Provider [phone] Reason for Referral * Medications - Closed Specialty Diagnoses / Procedures Referred By Contac t Referred To Contact Diagnoses DM (diabetes mellitus), type 2 with neurological complications ([facility] V24, [facility] V28) Gaurang Marmolejo PA [address] [place] [address] Phone: tel: fax: Referral ID Status Reason Start Date Expiration Date Visits Re quested Visits Authorized [id number] Closed 1 1 Encounter Details Date Type Department Care Team ([facility] st Contact Info) Description 01/09/2025 Results [facility] [address] [place], [place] [phone] Gaurang Marmolejo PA [address] [place] [address] Social History Tobacco Use Types Packs/Day Years Used Date Smoking Tobacco: Former Cigarettes 0.5 10.3 0 1990 - 06/15/2000 Smokeless Tobacco: Never Alcohol Use Standard Drinks/Week Comments Not Currently 0 (1 standard drink = 0.6 oz pur e alcohol) Sex and Gender Information Value Date Recorded Sex Assigned at Not on file Legal Sex Male 5:49 PM EST Gender Identity Not on file Sexual Orientation Not on file documented as of this encounter Ordered Prescriptions Prescription Sig Dispense Quantity Refills Last Filled Start Date End Date dulaglutide (TRULICITY) 1.5 mg/0.5 mL pen injector injectionIndication s:DM (diabetes mellitus), type 2 with neurological complications ([facility] V24, [facility] V28) Inject 0.5 mL (1.5 mg total) under the skin every 7 (seven) days. 2 mL 01/09/2025 documented in this encounter Plan of Treatment Upcoming Encounters Date Type Department Care Team (Late st Contact Info) Description 07/10/2025 9:45 AM EDT [facility] [address] [place] [address] Gaurang Marmolejo PA [address] [place] [address] Scheduled Orders Name Type Priority Associated Diagnoses Orde r Schedule Hepatic function panel Lab Routine Abnormal LFTs 1 Occurrences starting 01/09/2025 until 01/09/2026 documented as of this encounter Goals Goal Patient Goal Type Associated Problems Recent Progress Patient-Stated? Author OT General On track(2024 12:48 PM EST) Ritu Andrade, OT Note: Short Term Goals Indep initial HEP 01/26 MET and ongoing Resting pain Lupper quadrant not exceed 4/10 01/26 MET Partic in estim to promote digit ext in order to actively release ADL items from L hand (ie toothbrush) 01/26 MET AND ONGOING to promote further ext in all digits (still deficit in L MF/RF/LF) 03/09/24 MET Casting Associate Goals: Indep final HEP including AE/DME needs assessment and recommendations 03/09/24 MET Maximize L sldr AAROM to at least 45 ER for ease of reaching for ADL objects/ donning jacket: 03/09/24: Not met (difficult isolate but achieves approx 35) documented as of this encounter Visit Diagnoses Diagnosis DM (diabetes mellitus), type 2 with neurological complications ([facility] V24, [facility] V28)- Primary Type II or unspecified type diabetes mellitus with neurological manifestations, not stated as uncontrolled Abnormal LFTs documented in this encounter Discontinued Medications Medication Sig Discontinue Reason Start Date End Da te dulaglutide (TRULICITY) 0.75 mg/0.5 mL pen injector injection Inject 0.5 mL (0.75 mg total) under the skin every 7 (seven) days. 10/05/2024 01/09/2025 documented as of this encounter Additional Health Concerns Assessment Noted Time PHQ-9 Depression Total Score: 0 01/09/20 10:05 AM EST documented as of this encounter Care Teams Fire Sprinkler Designer Relationship Specialty Start Date End Date Sylvia Tuttle MD [address] [place] [phone] PCP - General Internal Medicine 01/08/25 documented as of this encounter
--- OUTSIDE RECORDS SUMMARY | 2025-01-16 06:54 | XMS_ITS | Encounter Summary ---
Author Organization [facility] Address [address] [facility] [address] [place] [address] Phone Care Team Providers Care Business Editor Name Role Phone Bernadine Servin Primary Care Provider [phone] Encounter Details Date Type Department Care Team (Late st Contact Info) Description 08/09/2020 Orders Only [facility] [address] [facility] [address] [place] [phone] Ha Goldberg MD [address] [place] [phone] Stage 5 chronic kidney disease (HCC); Hypertension; [...] Visit [facility] [address] [facility] [address] [place] [address] Evaristo Vidales MD [address] [facility] [address] [place] [address] documented as of this encounter Visit Diagnoses Diagnosis Stage 5 chronic kidney disease (HCC) Hypertension Type 2 diabetes mellitus with diabetic chronic kidney disease (HCC) documented in this encounter Care Teams Business Editor Relationship Specialty Start Date End Date Bernadine Servin [address] [place] [address] PCP - General Internal Medicine 02/23/23 documented as of this encounter
--- OUTSIDE RECORDS SUMMARY | 2025-01-16 06:54 | XMS_ITS | Clinical Summary ---
Author Organization [facility] Address [address] [place] [address] Care Team Providers Care Fashion Adviser Name Role Phone Estuardo Faria MD Primary Care Provider [phone] Social History Tobacco Use Types Packs/Day Years [...] series) 20[address] Insurance MEDICAID OUT OF STATE [facility] [place] [place] [address] MEDICARE PART A & B Care Teams Fashion Adviser Relationship Specialty Start Date End Date Estuardo Faria MD PCP - General 05/04/22
--- OUTSIDE RECORDS SUMMARY | 2025-01-16 06:54 | XMS_ITS | Encounter Summary ---
Author Organization [facility] Address [address] [facility] [address] [place] [address] Phone Care Team Providers Care Operations Logistics Analyst Name Role Phone Bernadine Servin Primary Care Provider [phone] Encounter Details Date Type Department Care Team (Late st Contact Info) Description 08/02/2020 Orders Only [facility] [address] [facility] [address] [place] [phone] Ha Goldberg MD [address] [place] [phone] Stage 5 chronic kidney disease (HCC); Hypertension; [...] [facility] [address] [facility] [address] [place] [address] Evaristo Vidales MD [address] [facility] [address] [place] [address] documented as of this encounter Visit Diagnoses Diagnosis Stage 5 chronic kidney disease (HCC) Hypertension Type 2 diabetes mellitus with diabetic chronic kidney disease (HCC) documented in this encounter Care Teams Operations Logistics Analyst Relationship Specialty Start Date End Date Bernadine Servin [address] [place] [address] PCP - General Internal Medicine 02/23/23 documented as of this encounter
== END 2025-01-16 06:52 | disposition home or self-care (01) ==
LOC: CF 06:51
PROVIDERS: Visit Provider Anesthesiology
DX: M47.812 Spondylosis without myelopathy or radiculopathy, cervical region (principal)
CPT/HCPCS: 64555; 64590; J2003

== ENCOUNTER 2025-01-16 08:38 | Outpatient (AMB) | payer OTHER, SELFPAY ==
--- NOTE | 2025-01-16 08:39 | MHC.OFFVIS ---
Vital Signs 01/16/25 08:45 Height 5 ft 6 in Weight 232 lb BMI 37.4 BP 147/70 H Blood Pressure Location Lt brachial Position Sitting Respiration 16 Pulse 73 Pulse Source Pulse Oximeter Pulse Oximetry (%) 98 Oxygen Delivery Method Room Air Intake Visit Reasons: Left C5 MB Sprint PNS Allergies No Known Allergies Allergy (Verified 12/14/24 13:09) Physical Exam Vital Signs: Last Vital Signs Pulse 73 01/16/25 08:45 Resp 16 01/16/25 08:45 BP 147/70 H 01/16/25 08:45 Pulse Ox 98 01/16/25 08:45 Oxygen Delivery Method Room Air 01/16/25 08:45 BMI result Body Mass Index 37.4 Assessment & Plan Assessment & Plan (1) Spondylosis of cervical spine: Code(s): M47.812 - Spondylosis without myelopathy or radiculopathy, cervical region Category: Medical Plan Percutaneous implantation of peripheral nerve stimulation Sprint system Left C5 the risks, benefits and alternatives were discussed with the patient and informed consent was obtained, patient was placed in the prone position and padded to foster comfort. Time out was performed delineating correct site and side of the procedure , name and of the patient, patient participated in time out procedure. Theupper back and posterior neck of the patient was prepped with ChloraPrep and draped with sterile self adhesive utility towels. C-arm was brought over the operating field and clear picture of the C5 lamina on the left was delineated on the screen. The upper central portion of the lamina was chosen as a target of the needle tip insertion . After identifying and marking the intended target, the skin around the planned entry point and the subcutaneous tissues were injected with local anesthetic forming skin wheal.. A percutaneous sleeve and stimulating probe lead introduction system were assembled, inserted and advanced through the skin wheal to the point of interest under C-arm viewL left C5 lamina., the introducer needle was delivered to a location in proximity to the nerve. Multiple stimulation parameters were used to deliver stimulation to the nerve in concert with stimulating at multiple positions around the nerve. The nerve target acquisition was confirmed noting generation of in the corresponding to the nerve being stimulated. Various electrical parameter combinations were tested, and the lead location was adjusted (physically relocated) until the patient indicated overlapping the distribution of the patient?s typical region of pain. The stimulating probe was removed from the introducer and a percutaneous lead was guided through the needle and delivered to a location in similar proximity to the nerve. Final location was verified with electrical stimulation. The introducer needle was removed, and the exposed end of the percutaneous lead was attached to an external stimulator unit. At the end of the case various electrical parameter combinations were again tested until the patient indicated paresthesia or muscle tension overlapping the distribution of the patient?s typical region of pain. After confirming that lead impedance was in the normal range, the external unit was detached, the needle was removed, and the lead was anchored at the skin. The leads were threaded into the connector block and electrical continuity and desired patient response was confirmed. The connector block was attached to the external stimulator unit. The site was covered with a sterile occlusive dressing and a image was taken to document final placement. Upon completion of the procedure the patient was taken outside the OR where she recovered uneventfully she went home without immediate complications. Orders: Orders FL guidance in treatment room Today M47.812 - Spondylosis without myelopathy or radiculopathy, cervical region Coding Level of Care Code Procedure Only Diagnoses Spondylosis of cervical spine M47.812
[2025-01-16 08:45] VITALS: BP 147/70; PULSE 73; RESP 16; O2SAT 98; BMI 37.4
== END 2025-01-16 10:22 | disposition home or self-care (01) ==
LOC: HO.PMCPRC 08:38
PROVIDERS: PCP Internal Medicine; Visit Provider Anesthesiology
DX: M47.812 Spondylosis without myelopathy or radiculopathy, cervical region (principal)
CPT/HCPCS: 64555; 64590

== ENCOUNTER 2025-01-25 10:05 | Outpatient (AMB) | payer OTHER, SELFPAY ==
[2025-01-25 10:15] VITALS: BP 133/64; PULSE 90; RESP 16; O2SAT 96; BMI 37.8
--- NOTE | 2025-01-25 10:15 | A.OFFVIS_ITS ---
Vital Signs 01/25/25 10:15 Height 5 ft 6 in Weight 234 lb BMI 37.8 BP 133/64 Blood Pressure Location Lt brachial Position Sitting Respiration 16 Pulse 90 Pulse Source Pulse Oximeter Pulse Oximetry (%) 96 Oxygen Delivery Method Room Air Intake Visit Reasons: S/P Left C5 MB Sprint PNS Intake Note: Left Sprint was removed today. Patient presented to office without dressing and Sprint was almost out. Tip Intact Service Desk Agent Required: No Accompanied by: Self / Same As Patient Allergies No Known Allergies Allergy (Verified 01/25/25 10:16) HPI Comments Details: Rashawn is back in my office after sprint PNS C5 on the left. He reported for the past 7 days almost 100% of the pain relief. 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 I offered him Curonix PNS with complete implantation of the system under his skin. He needs to go for psychological evaluation. He does not have computer at home so we will invite him in the office and he will have psychological evaluation done in the office. After he will complete psychological evaluation I will schedule him for Curonix PNS on the left C5. Prior: Results of diagnostic medial branch block C4, C5, C6 on the left. He reports pain before the procedure 8/10. He reports skin irritation immediately after the procedure and at the 1st 4 hours after the procedure in the range of 4/10. However his chronic pain was completely absent. He reports pain 0/10 starting from 6 hour after the procedure and up until now. He reports only minor pressure in the neck however denies any pain at the time of the examination. I believe this patient will be a good candidate for sprint PNS on the left. I will schedule procedure accordingly. There is a straightening of the spinal canal doses of the x-ray. Prior: complains on pain in the left side of his neck. He reports that this pain started after the stroke in 2020. He reports pain in the lateral and posterior surface of the neck on the left. He denies pain in his shoulder. He reports that because of his pain he has difficulty sleeping at night. He is able to do activities of daily living he is able to take care of himself but he is unable to function normally. He is disabled individual. He tried locate lidocaine patch application but it did not help. He tried application of the called but not hot and it did not help his pain. He is taking gabapentin and muscle relaxants for his pain. He never had images of his cervical spine. He had physical therapy 6-7 months ago he continues home exercise program. He is able to flex his forearm and slightly able to extend it. He is able to shrug his left shoulder. He never had any injections. His past medical history significant for severe hypertension. He has a stroke and he lost kidney function approximately at the same time. He was treated by hemodialysis until 2021 when his son donated him his kidney, he is now under kidney transplant in [facility]. He is also diabetic. Review of Systems Const All systems reviewed & are unremarkable except as noted in HPI and below ENT Reports Normal hearing present Neuro Reports Normal hearing present, Denies Abnormal speech present, Denies confusion and Denies Sensory deficit (Neuro) Psych Denies confusion Physical Exam Vital Signs: Last Vital Signs Pulse 90 01/25/25 10:15 Resp 16 01/25/25 10:15 BP 133/64 01/25/25 10:15 Pulse Ox 96 01/25/25 10:15 Oxygen Delivery Method Room Air 01/25/25 10:15 BMI result Body Mass Index 37.8 Const General: no acute distress; No confusion Nutritional Appearance: obese morbidly obese Orientation/consciousness: patient oriented x3 and No confusion Eyes General: appearance normal, both eyes and all related structures Pupils: Equal, round and reactive pupils present EOM: EOMs intact bilaterally Neck Other: Flexing head forward does not affect his pain but flexing it backwards aggravated severely. There is tenderness on palpation in paraspinal region on the left of the cervical spine. Axial compression aggravates patient's pain. He is able to shrug his left shoulder up, he is able to squeeze my hand on the left but very weakly. Almost unable to extend the left forearm but able to flex it gently. The strength is grossly compromised. Neck: No full ROM Chest Chest palpation & inspection: normal inspection of the chest Resp Effort & Inspection: normal respiratory effort, able to speak in complete sentences, normal respiratory pattern, no audible wheezes and no cough Cardio Jugular venous distension: no JVD GI Inspection: Yes normal to inspection Neuro General: patient oriented x3, gait normal and No confusion Cranial nerves: Yes CN's II-XII intact bilaterally, Yes Equal, round and reactive pupils present, Yes Normal hearing present and Yes Ability to bilaterally elevate shoulders present Speech: No Abnormal speech present Gait exam (Neuro): Normal gait present Motor exam (neuro): 5/5 motor strength present throughout Sensory Exam: No Sensory deficit (Neuro) Extrem General: No pedal edema Psych Speech and movement: Normal speech and movement present Affect: normal affect Attitude: cooperative Thought process: Normal thought process present Thought content: Normal thought content present Insight: Good insight present (Psych) Judgement: Good judgement present (Psych) Assessment & Plan Assessment & Plan (1) Spondylosis of cervical spine: Code(s): M47.812 - Spondylosis without myelopathy or radiculopathy, cervical region Category: Medical (2) Chronic pain syndrome: Code(s): G89.4 - Chronic pain syndrome Category: Medical (3) 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 48 hours after the procedure patient has no pain in the neck. He reports minor pressure in the neck however no pain. Sprint PNS at the left C5 resulted in 90% pain improvement for the past 7 days however due to his disability he was not able to maintain his electrode in place. He got electrode dislodged. I decided to schedule him for psychological evaluation here in the office and after that psychological evaluation will be done I will schedule him for implantation of the Curonix PNS C5 on the left. Risks and benefits were explained to the patient. He has multiple disabilities including history of kidney transplant and history of stroke. 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
== END 2025-01-25 10:19 | disposition home or self-care (01) ==
LOC: HO.PMC 10:06
PROVIDERS: PCP Internal Medicine; Visit Provider Anesthesiology
DX: M47.812 Spondylosis without myelopathy or radiculopathy, cervical region (principal); G89.4 Chronic pain syndrome; I69.398 Other sequelae of cerebral infarction; R52 Pain, unspecified
CPT/HCPCS: 99024

== ENCOUNTER → 2025-01-25 10:05 | Outpatient (BNVA) | payer OTHER, SELFPAY | PROVIDERS: PCP Internal Medicine; Visit Provider Anesthesiology | DX: M47.812 Spondylosis without myelopathy or radiculopathy, cervical region (principal); G89.4 Chronic pain syndrome; I69.398 Other sequelae of cerebral infarction | CPT/HCPCS: 99212 ==